=== PATIENT | male | born 1955 | race Caucasian/White ===

== ENCOUNTER 2016-07-18 12:43 | Inpatient (IN) ==
--- NOTE | 2016-07-18 12:59 | Emergency Department Note ---
Disposition Clinical Impression: Left upper limb pain, Elevated troponin Chest pain Qualifiers: Chest pain type: unspecified Qualified Code(s): R07.9 - Chest pain, unspecified Disposition: Admitted As Inpatient Condition: Fair Referrals: Benedicto Workman DO [Primary Care Provider] - Forms: ED Satisfaction Letter Time of Disposition: 14:05 Chest Pain HPI - General Chief Complaint: ED Chest Pain Stated Complaint: CP/elevated trop/EKG changes Time Seen by Provider: 07/18/16 12:54 Source: patient, family, EMS Mode of arrival: EMS Limitations: no limitations Vital Signs Reviewed: Yes Nursing Notes Reviewed: Yes - History of Present Illness HPI Narrative: Patient is a 61-year-old male with past medical history of aortic valve replacement with mechanical valve, currently on Coumadin, previous OH. He presents today due to left-sided chest pain that radiates into his left upper extremity. It began one to 2 hours ago. Did not radiate anywhere else besides his left upper extremity. No shortness of breath, no nausea or vomiting. Denies any other fevers, abdominal pain. He did not get aspirin 325 because he is currently on Coumadin. He received 2 nitroglycerin tablets and his pain resolved. He currently rates his pain as 0 out of 10. Asymptomatic at this time. Troponin at [facility] was 0.05. - Related Data Allergies Allergy/AdvReac Type Severity Reaction Status Date / Time acetaminophen [From Percocet] Allergy Itching Verified 07/18/16 12:57 morphine Allergy Itching Verified 07/18/16 12:57 Oxycodone [From Percocet] Allergy Itching Verified 07/18/16 12:57 All systems ED: reviewed and negative except as stated. Constitutional: Denies: fever Cardiovascular: Reports: chest pain. Denies: palpitations Respiratory: Denies: cough, dyspnea, wheezes Gastrointestinal: Denies: abdominal pain, nausea, vomiting, diarrhea Musculoskeletal: Reports: arthralgia, myalgia. Denies: back pain Integumentary: Denies: rash Neurological: Denies: headache, weakness, numbness, paresthesias Physical Exam - General Limitations: no limitations General appearance: alert, in no apparent distress - Head Head exam: atraumatic, normocephalic, normal inspection - Eye Eye exam: Present: normal appearance, PERRL, EOMI - ENT ENT exam: normal exam, mucous membranes moist - Neck Neck exam: Present: normal inspection, full ROM, trachea midline - Chest Chest inspection: Present: normal inspection, symmetric chest wall rise - Respiratory Respiratory exam: Present: normal lung sounds bilaterally. Absent: respiratory distress, wheezes - Cardiovascular Cardiovascular exam: Present: regular rate, normal rhythm, normal heart sounds - Abdominal Exam Abdominal exam: Present: soft, Non-Tender. Absent: tenderness, distention, guarding, rebound, rigidity - Extremities Exam Extremities exam: Present: normal inspection, full ROM. Absent: tenderness, pedal edema - Neurological Exam Neurological exam: Present: alert, oriented X3, CN II-XII intact. Absent: motor sensory deficit - Psychiatric Psychiatric exam: Present: normal affect, normal mood - Skin Skin exam: Present: warm, dry, intact, normal color Course Course Narrative: Vitals within normal limits. Currently patient is chest pain-free. Physical exam fairly benign. We will obtain chest x-ray, CBC and BMP, repeat troponin. These labs were done at the [facility] but not sent over. 13:44 EKG shows: Sinus rhythm. Mild ST elevation in lead 3, aVF as well as on previous EKG. New upsloping in lead 3. Q waves in 2, 3, aVF that are old for the patient. New T-wave inversions in aVL and lead 1. Troponin 0.20. Patient currently on Coumadin, refused aspirin. We will consult cardiology due to nonspecific ST changes and elevated troponin. Currently chest pain free, no shortness of breath. Spoke with Dr. Bonds, did not recommend anticoagulation since he is a 31 on Coumadin. He will review the EKG and then give any further recommendations. For now, recommended admitting to the hospitalist with cardiology as consult. Vital Signs Temperature 98.1 F 07/18/16 12:45 Pulse Rate 65 07/18/16 12:45 Respiratory Rate 16 07/18/16 12:45 Blood Pressure 127/84 07/18/16 12:45 O2 Sat by Pulse Oximetry 96 07/18/16 12:45 Temperature 98.1 F 07/18/16 12:45 Pulse Rate 65 07/18/16 12:45 Respiratory Rate 16 07/18/16 12:45 Blood Pressure 127/84 07/18/16 12:45 O2 Sat by Pulse Oximetry 96 07/18/16 12:45 Oxygen Delivery Oxygen Delivery Room Air Chest Pain - MDM Narrative Medical decision making narrative: Vitals within normal limits. Currently patient is chest pain-free. Physical exam fairly benign. We will obtain chest x-ray, CBC and BMP, repeat troponin. These labs were done at the [facility] but not sent over. 13:44 EKG shows: Sinus rhythm. Mild ST elevation in lead 3, aVF as well as on previous EKG. New upsloping in lead 3. Q waves in 2, 3, aVF that are old for the patient. New T-wave inversions in aVL and lead 1. Troponin 0.20. Patient currently on Coumadin, refused aspirin. We will consult cardiology due to nonspecific ST changes and elevated troponin. Currently chest pain free, no shortness of breath. Spoke with Dr. Bonds, did not recommend anticoagulation since he is a 31 on Coumadin. He will review the EKG and then give any further recommendations. For now, recommended admitting to the hospitalist with cardiology as consult. - Medical Records Medical records reviewed: Yes I reviewed the patient's medical records. - Lab Data Lab results reviewed: Yes I reviewed the patient's lab results. Result diagrams: 07/18/16 13:07 07/18/16 13:07 Lab Results 07/18/16 07/18/16 07/18/16 Range/Units 13:07 13:07 13:07 WBC 10.3 (4.3-11.1) K/mcL RBC 5.14 (4.19-5.50) M/mcL Hgb 15.3 (12.9-16.9) g/dL Hct 44.5 (37.5-50.1) % MCV 86.6 (83.0-100.0) fL MCH 29.8 (28.0-33.3) pg MCHC 34.4 (31.6-35.5) g/dL RDW 12.5 (11.5-14.5) % Plt Count 196 (140-400) K/mcL MPV 10.7 (9.4-12.4) fL Immature Gran % 0.3 (0-4) % Seg Neutrophils % 60.7 % Lymphocytes % 29.4 % Monocytes % 8.3 % Eosinophils % 1.0 % Basophils % 0.3 % Neutrophils # 6.3 (1.6-8.9) K/mcL Lymphocytes # 3.0 (0.6-4.6) K/mcL Monocytes # 0.9 (0.0-1.3) K/mcL Eosinophils # 0.1 (0.0-0.6) K/mcL Basophils # 0.0 (0.0-0.2) K/mcL Sodium 140 (136-145) mEq/L Potassium 3.7 (3.5-4.5) mEq/L Chloride 103 (98-109) mEq/L Carbon Dioxide 31 H (19-29) mEq/L BUN 17 (8-26) mg/dL Creatinine 0.80 (0.72-1.25) mg/dL Est GFR ( Amer) > 60 (> 60) Est GFR (Non-Af Amer) > 60 (> 60) BUN/Creatinine Ratio 21 (6-26) Glucose 95 (70-99) mg/dL Calculated Osmolality 291 (280-300) Calcium 9.3 (8.6-10.8) mg/dL Troponin I 0.20 H* (0-0.03) ng/mL - Radiology Data Radiology results reviewed: Yes I reviewed the patient's radiology results. Chest X-Ray 07/18/16 12:53 IMPRESSION: No acute cardiopulmonary disease. D/ / 07/18/2016 13:43:45 Chacho Billings MD / [facility] Interpreting Provider: Chacho Billings MD - EKG Data EKG attestation: Yes I reviewed and interpreted this EKG. EKG results narrative: 07/18/2016 at 12:48. Sinus rhythm. Mild ST elevation in lead 3, aVF as well as on previous EKG. New upsloping in lead 3. Q waves in 2, 3, aVF that are old for the patient. New T-wave inversions in aVL and lead 1. Old EKG was 09/20/2012 Heart Score - Score History: Highly Suspicious EKG: Non Specific repolarisation Disturbance Age: 45-65 Risk Factors: Equal/Greater than 3 risk factor or history of atherosclerotic disease Troponin: 1-3x normal limit HEART Score Total: 7 S.B.A.R. - S.B.A.R. Situation: Demographics, MOA Background: Presenting Complaint, Relevant PMH, Meds, & Allergies Assessment: Vital Signs, Course and respsone to treatment, Exam Concerns, Patient/Family Expectation, Pertinant Lab Results, Outstanding Labs Recommendation: Barrier(s) to disposition, Recommendation based on pending studies, treatments, or consults Chivo Report Given to: Dr. Shiloh Waldron Repor Time: 14:05
--- NOTE | 2016-07-18 13:11 | Emergency Department Note ---
Disposition Clinical Impression: Chest pain, Left upper limb pain, Elevated troponin Disposition: Admitted As Inpatient Condition: Fair General Adult HPI - General Chief complaint: ED Chest Pain Stated complaint: CP/elevated trop/EKG changes Time Seen by Provider: 07/18/16 13:02 Source: patient, family, EMS Mode of arrival: EMS Limitations: no limitations - History of Present Illness Pain Scale: 0 - Related Data Home Medications Medication Instructions Recorded Confirmed Celecoxib [Celebrex] 200 mg PO DAILY 07/18/16 07/18/16 Esomeprazole Magnesium [Nexium] 20 mg PO DAILY 07/18/16 07/18/16 Fluticasone Propionate Nasal 1 spray NS BID 07/18/16 07/18/16 [Flonase] Furosemide [Lasix] 40 mg PO DAILY PRN 07/18/16 07/18/16 Loratadine [Allergy Relief] 10 mg PO DAILY 07/18/16 07/18/16 Nitroglycerin [Nitrostat] 0.4 mg SL AD PRN 07/18/16 07/18/16 Potassium Chloride [Klor-Con 10] 10 meq PO DAILY PRN 07/18/16 07/18/16 Warfarin [Coumadin] 5 mg PO 6XW 07/18/16 07/18/16 Warfarin [Coumadin] 5 mg PO FR 07/18/16 07/18/16 Allergies Allergy/AdvReac Type Severity Reaction Status Date / Time acetaminophen [From Percocet] Allergy Itching Verified 07/18/16 12:57 morphine Allergy Itching Verified 07/18/16 12:57 Oxycodone [From Percocet] Allergy Itching Verified 07/18/16 12:57 Constitutional: Denies: fever Cardiovascular: Reports: chest pain. Denies: palpitations Respiratory: Denies: cough, dyspnea, wheezes Gastrointestinal: Denies: abdominal pain, nausea, vomiting, diarrhea Musculoskeletal: Reports: arthralgia, myalgia. Denies: back pain Integumentary: Denies: rash Neurological: Denies: headache, weakness, numbness, paresthesias Past Medical History - Past Medical History Medical history: Reports: arthritis, other Psychiatric history: Reports: anxiety - Social History Smoking Status: Never smoker Smokeless Tobacco Status: No Alcohol use: Reports: none Drug use: Reports: none Physical Exam - General Limitations: no limitations General appearance: alert, in no apparent distress Course Vital Signs Temperature 98.1 F 07/18/16 12:45 Pulse Rate 65 07/18/16 12:45 Respiratory Rate 16 07/18/16 12:45 Blood Pressure 127/84 07/18/16 12:45 O2 Sat by Pulse Oximetry 96 07/18/16 12:45 Temperature 98.2 F 07/18/16 16:09 Pulse Rate 62 07/18/16 16:09 Respiratory Rate 18 07/18/16 16:09 Blood Pressure 140/80 07/18/16 16:09 O2 Sat by Pulse Oximetry 97 07/18/16 16:09 Oxygen Delivery Oxygen Delivery Room Air Medical Decision Making - Lab Data Result diagrams: 07/18/16 13:07 07/18/16 13:07 Lab Results 07/18/16 07/18/16 07/18/16 Range/Units 13:07 13:07 13:07 WBC 10.3 (4.3-11.1) K/mcL RBC 5.14 (4.19-5.50) M/mcL Hgb 15.3 (12.9-16.9) g/dL Hct 44.5 (37.5-50.1) % MCV 86.6 (83.0-100.0) fL MCH 29.8 (28.0-33.3) pg MCHC 34.4 (31.6-35.5) g/dL RDW 12.5 (11.5-14.5) % Plt Count 196 (140-400) K/mcL MPV 10.7 (9.4-12.4) fL Immature Gran % 0.3 (0-4) % Seg Neutrophils % 60.7 % Lymphocytes % 29.4 % Monocytes % 8.3 % Eosinophils % 1.0 % Basophils % 0.3 % Neutrophils # 6.3 (1.6-8.9) K/mcL Lymphocytes # 3.0 (0.6-4.6) K/mcL Monocytes # 0.9 (0.0-1.3) K/mcL Eosinophils # 0.1 (0.0-0.6) K/mcL Basophils # 0.0 (0.0-0.2) K/mcL PT (9.4-12.1) Seconds INR APTT (26.0-36.0) Seconds Sodium 140 (136-145) mEq/L Potassium 3.7 (3.5-4.5) mEq/L Chloride 103 (98-109) mEq/L Carbon Dioxide 31 H (19-29) mEq/L BUN 17 (8-26) mg/dL Creatinine 0.80 (0.72-1.25) mg/dL Est GFR ( Amer) > 60 (> 60) Est GFR (Non-Af Amer) > 60 (> 60) BUN/Creatinine Ratio 21 (6-26) Glucose 95 (70-99) mg/dL Calculated Osmolality 291 (280-300) Calcium 9.3 (8.6-10.8) mg/dL Creatine Kinase 191 (30-200) Units/L Troponin I 0.20 H* (0-0.03) ng/mL 07/18/16 Range/Units 14:09 WBC (4.3-11.1) K/mcL RBC (4.19-5.50) M/mcL Hgb (12.9-16.9) g/dL Hct (37.5-50.1) % MCV (83.0-100.0) fL MCH (28.0-33.3) pg MCHC (31.6-35.5) g/dL RDW (11.5-14.5) % Plt Count (140-400) K/mcL MPV (9.4-12.4) fL Immature Gran % (0-4) % Seg Neutrophils % % Lymphocytes % % Monocytes % % Eosinophils % % Basophils % % Neutrophils # (1.6-8.9) K/mcL Lymphocytes # (0.6-4.6) K/mcL Monocytes # (0.0-1.3) K/mcL Eosinophils # (0.0-0.6) K/mcL Basophils # (0.0-0.2) K/mcL PT 44.2 H* (9.4-12.1) Seconds INR 3.9 APTT 41.6 H (26.0-36.0) Seconds Sodium (136-145) mEq/L Potassium (3.5-4.5) mEq/L Chloride (98-109) mEq/L Carbon Dioxide (19-29) mEq/L BUN (8-26) mg/dL Creatinine (0.72-1.25) mg/dL Est GFR ( Amer) (> 60) Est GFR (Non-Af Amer) (> 60) BUN/Creatinine Ratio (6-26) Glucose (70-99) mg/dL Calculated Osmolality (280-300) Calcium (8.6-10.8) mg/dL Creatine Kinase (30-200) Units/L Troponin I (0-0.03) ng/mL Attestation Statement - Attestation Attestation: I examined this patient and my medical decision-making was reviewed with the [facility] DIRECTOR/PA/Advanced Practice Nurse/Resident Physician. I agree with the documented findings, disposition and treatment plan as described except to the extent set forth below. Face to face time provided [facility] and [facility]. Patient has a known history of coronary artery disease. EKG reviewed by me. Patient resting comfortably without reports of chest pain. He appears no acute distress
[2016-07-18 13:12] LABS: Basophils % 0.3 %; Eosinophils # 0.1 K/mcL (0.0-0.6); Hematocrit 44.5 % (37.5-50.1); Hemoglobin 15.3 g/dL (12.9-16.9); Immature Granulocytes % 0.3 % (0-4); Lymphocytes % 29.4 %; Mean Corpuscular HGB Conc 34.4 g/dL (31.6-35.5); Mean Corpuscular Hemoglobin 29.8 pg (28.0-33.3); Mean Corpuscular Volume 86.6 fL (83.0-100.0); Mean Platelet Volume 10.7 fL (9.4-12.4); Monocytes # 0.9 K/mcL (0.0-1.3); Monocytes % 8.3 %; Neutrophils # 6.3 K/mcL (1.6-8.9); Platelet Count 196 K/mcL (140-400); Red Blood Count 5.14 M/mcL (4.19-5.50); Red Cell Distribution Width 12.5 % (11.5-14.5); Segmented Neutrophils % 60.7 %
[2016-07-18 13:25] LABS: BUN/Creatinine Ratio 21 (6-26); Blood Urea Nitrogen 17 mg/dL (8-26); Calcium 9.3 mg/dL (8.6-10.8); Carbon Dioxide 31 mEq/L (19-29); Chloride 103 mEq/L (98-109); Glucose 95 mg/dL (70-99); Osmolality,Calculated 291 (280-300); Potassium 3.7 mEq/L (3.5-4.5); Sodium 140 mEq/L (136-145); eGFR For African Americans > 60 (> 60); eGFR For Non-African Americans > 60 (> 60)
--- NOTE | 2016-07-18 14:25 | Cardiology Consult Note ---
Date of Encounter: 07/18/16 Time of Encounter: 14:23 Assessment and Plan (1) NSTEMI (non-ST elevated myocardial infarction) Current Visit: Yes Status: Acute Troponin 0.20 here. Records not sent of what troponin was at [facility]. Trend for total of 3. Pt with left sided chest and arm pain, relieved with nitro. Currently pain free. Will not heparinize unless INR is <2 since pt is anticoagulated on Coumadin. EKG with evidence of inferior CA, Q waves noted. Start ASA, Statin, BB. INR pending. Recommend [facility]. R/B/A discussed and pt agrees to proceed. Plan for tomorrow if INR allows (<=2). Check echo to evaluate structure and function. Last echo at [facility] 02/2015 EF was preserved and valve was functioning normally. (2) H/O mechanical aortic valve replacement Current Visit: Yes Status: Acute Type A aortic dissection in 1984, repair of dissection as well as mechanical Medtronic-Valadez valve replacement. Echo 02/2015 normal functioning valve. Anticoagulated on Coumadin, INR pending. (3) History of aortic dissection Current Visit: Yes Status: Resolved As above, s/p repair in 1984. Discussion w patient/family: The assessment and plan as outlined above was discussed with the patient and/or family members who expressed understanding and agreement. All questions were answered. Thank you for involving us in the care of your patient. Please call with any questions. I will discuss all the above with Dr. Bonds and make changes as necessary. History of Present Illness Consult date: 07/18/16 Requesting physician: Joseph Sierra Consult reason: NSTEMI Chief complaint: left chest/arm pain History of present illness: Mr. Capellan is a 61 year old male with PMH of Type A aortic dissection in 1984. His surgery at that time included repair of and descending aortic dissection as well as mechanical Medtronic-Valadez aortic valve replacement. He has followed every 6 months at [facility] [address] Fonseca. Last echo in 2014 at showed normal EF and normal functioning valve. He is on Coumadin. He reports that over recent days he has been experiencing left chest and left arm pain, aching in nature. He denies any associated symptoms. He presented to [facility], was found to have elevated troponin and transferred to [facility]. Troponin is 0.20. Pt reports nitro helped relieve the pain. Moving made it worse. He is currently pain free. Reports living a healthy lifestyle, has never smoked. Past Med Surg Social Fam HX - Past Medical History Medical history: arthritis, valvular heart disease, other (type A aortic dissection) Psychiatric history: anxiety - Social History Smoking Status: Never smoker Smokeless Tobacco Status: No Alcohol use: none Drug use: none Medications and Allergies Celecoxib [Celebrex] 200 mg PO DAILY 07/18/16 [History] Esomeprazole Magnesium [Nexium] 20 mg PO DAILY 07/18/16 [History] Fluticasone Propionate Nasal [Flonase] 1 spray NS BID 07/18/16 [History] Furosemide [Lasix] 40 mg PO DAILY PRN 07/18/16 [History] Loratadine [Allergy Relief] 10 mg PO DAILY 07/18/16 [History] Nitroglycerin [Nitrostat] 0.4 mg SL AD PRN 07/18/16 [History] Potassium Chloride [Klor-Con 10] 10 meq PO DAILY PRN 07/18/16 [History] Warfarin [Coumadin] 5 mg PO 6XW 07/18/16 [History] Warfarin [Coumadin] 5 mg PO FR 07/18/16 [History] Allergies acetaminophen [From Percocet] Allergy (Verified 07/18/16 12:57) Itching morphine Allergy (Verified 07/18/16 12:57) Itching Oxycodone [From Percocet] Allergy (Verified 07/18/16 12:57) Itching All Systems Review: A 10-system review of systems was performed and is negative for pertinent findings except as documented above in the HPI. - Cardiovascular Cardiovascular: as per HPI, chest pain at rest, chest pain with exertion, radiating jaw, neck or arm pain Physical Examination Vital Signs, Last 4 Hours Temp Pulse Resp BP Pulse Ox 07/18/16 14:00 61 16 121/83 98 07/18/16 12:45 98.1 F 65 16 127/84 96 Vital Signs Temp Pulse Resp BP Pulse Ox 07/18/16 14:00 61 16 121/83 98 07/18/16 12:45 98.1 F 65 16 127/84 96 Intake and Output 07/17/16 07/18/16 07/18/16 23:59 07:59 15:59 Other: Weight 80.286 kg Patient Weight 07/18/16 23:59 Weight 80.286 kg General: Conversant, No Apparent Distress HEENT: Atraumatic, Normocephaly, Mucus Membranes Moist Neck: No JVD, Normal carotid pulses Cardiac: Reg Rate and Rhythm, Normal S1 and S2 Lungs: Normal Breath Sounds, No Wheeze, Rales, Rhonchi Neuro: Alert and responsive, No focal deficits noted Abdomen: Soft, Non-Tender Skin: No rashes noted on visualized skin Musculoskeletal: No Chest Wall Tenderness Extremities: No Clubbing, No Cyanosis, No Edema, Normal Pulses Results 07/18/16 13:07 07/18/16 13:07 Lab Results 07/18/16 07/18/16 07/18/16 13:07 13:07 13:07 WBC 10.3 RBC 5.14 Hgb 15.3 Hct 44.5 MCV 86.6 MCH 29.8 MCHC 34.4 RDW 12.5 Plt Count 196 MPV 10.7 Immature Gran % 0.3 Seg Neutrophils % 60.7 Lymphocytes % 29.4 Monocytes % 8.3 Eosinophils % 1.0 Basophils % 0.3 Neutrophils # 6.3 Lymphocytes # 3.0 Monocytes # 0.9 Eosinophils # 0.1 Basophils # 0.0 Sodium 140 Potassium 3.7 Chloride 103 Carbon Dioxide 31 H BUN 17 Creatinine 0.80 Est GFR ( Amer) > 60 Est GFR (Non-Af Amer) > 60 BUN/Creatinine Ratio 21 Glucose 95 Calculated Osmolality 291 Calcium 9.3 Troponin I 0.20 H* - Imaging and Cardiology Chest Xray: report reviewed Echo: report reviewed - EKG Interpretation EKG results cardiology: personally reviewed (Q waves noted, no evidence of STEMI , appears to be inferior CA.) Consult Discharge Plan - Plan Referrals: Benedicto Workman DO [Primary Care Provider] -
[2016-07-18 14:29] LABS: Creatine Kinase 191 Units/L (30-200)
[2016-07-18 14:37] LABS: Activated Partial Thrombo Time 41.6 Seconds (26.0-36.0)
[2016-07-18 14:40] LABS: INR 3.9; Prothrombin Time 44.2 Seconds (9.4-12.1)
[2016-07-18] MEDS ORDERED: Naloxone 0.4 MG/ML INJ IVP PRN (15:00)
--- NOTE | 2016-07-18 15:58 | Internal Med History&Physical ---
Date of Encounter: 07/18/16 Time of Encounter: 15:00 Assessment and Plan (1) NSTEMI (non-ST elevated myocardial infarction) Current visit: Yes Status: Acute Patient with elevated troponin and left-sided chest/arm pain. Trend troponins. Monitor vital signs closely. Consult cardiology and follow recommendations. Patient is already treated with Coumadin. Start aspirin and statin. High risk for complications. Check A1c and lipid profile. (2) H/O mechanical aortic valve replacement Current visit: Yes Status: Acute On Coumadin. INR is therapeutic (3) History of aortic dissection Current visit: Yes Status: Resolved Status post surgical repair. CTA done and shows no acute dissection. (4) Left upper limb pain Current visit: Yes Status: Acute Likely related to non-ST elevation SC. Internal Medicine - H&P: HPI Chief complaint: Left arm pain Admitted From: Home Plans for Post Hospital Care: Home History of present illness: Mr. Capellan is a 61 year old male patient with a history of aortic valve replacement/and aortic dissection with surgical repair presented to the ER with complaints of left-sided chest/left arm pain. He says his pain has been going on for about 2 days intermittently and lasting for 4-5 minutes each time. However this morning he began to have pain that lasted for 15 minutes and so he came to the ER. No relation to activity. No associated shortness of breath. No cough, fever or chills or night sweats. He has been chest pain-free since coming here. He has initially gone to the [place] and they had sent him over. Past Med Surg Social Fam HX - Past Medical History Medical history: arthritis, valvular heart disease, other (type A aortic dissection) Psychiatric history: anxiety - Past Surgical History Surgical History: other (Open heart surgery for aortic valve replacement and aortic dissection repair) - Social History Smoking Status: Never smoker Smokeless Tobacco Status: No Alcohol use: none Drug use: none - Additional Family History Additional family history: Reviewed with patient and found to be noncontributory at this time Internal Medicine - H&P: Meds Celecoxib [Celebrex] 200 mg PO DAILY 07/18/16 [History] Esomeprazole Magnesium [Nexium] 20 mg PO DAILY 07/18/16 [History] Fluticasone Propionate Nasal [Flonase] 1 spray NS BID 07/18/16 [History] Furosemide [Lasix] 40 mg PO DAILY PRN 07/18/16 [History] Loratadine [Allergy Relief] 10 mg PO DAILY 07/18/16 [History] Nitroglycerin [Nitrostat] 0.4 mg SL AD PRN 07/18/16 [History] Potassium Chloride [Klor-Con 10] 10 meq PO DAILY PRN 07/18/16 [History] Warfarin [Coumadin] 5 mg PO 6XW 07/18/16 [History] Warfarin [Coumadin] 5 mg PO FR 07/18/16 [History] Allergies acetaminophen [From Percocet] Allergy (Verified 07/18/16 12:57) Itching morphine Allergy (Verified 07/18/16 12:57) Itching Oxycodone [From Percocet] Allergy (Verified 07/18/16 12:57) Itching All Systems PM: A 10-system review of systems was performed and is negative for pertinent findings except as documented above in the HPI. - Constitutional Constitutional: no chills, no fever(s), no night sweats - EENT Eyes: no change in vision, no discharge, no pain, no photophobia Ears: no ear discharge, no ear pain, no tinnitus Nose, mouth and throat: no dysphagia, no nasal discharge, no neck pain, no sore throat - Cardiovascular Cardiovascular ROS IM: chest pain, no diaphoresis, no dyspnea, no lightheadedness, no palpitations, no syncope - Respiratory Respiratory: no cough, no dyspnea, no wheezing, no excessive phlegm production - Gastrointestinal Gastrointestinal: no abdominal pain, no diarrhea, no hematemesis, no hematochezia, no melena, no nausea, no vomiting - Musculoskeletal Musculoskeletal ROS IM: no numbness, no tingling - Integumentary Integumentary IM: no rash, no unusual bruising - Neurological Neurological ROS: no confusion, no convulsions, no focal weakness, no numbness, no tingling, no tremor(s) - Hematologic/Lymphatic Hematologic/Lymphatic: no easy bruising - Constitutional Vitals: Temp Pulse Resp BP Pulse Ox 98.1 F 61 16 126/83 98 07/18/16 12:45 07/18/16 14:00 07/18/16 15:02 07/18/16 15:02 07/18/16 14:00 General appearance: Present: cooperative, A&O X 3, answers questions appropriately - Respiratory Respiratory exam: Present: CTAB. Absent: accessory muscle use, rales, rhonchi, wheezes - Cardiovascular Cardiovascular exam: Present: RRR, +S1, +S2. Absent: diastolic murmur, gallop, rubs, systolic murmur - GI/Abdominal GI/Abdominal exam: Present: normal bowel sounds, soft, no peritoneal signs. Absent: distended, tenderness - Extremities Exam Extremities exam: Present: warm, radial pulses palpable and symetrical. Absent : calf tenderness, cyanotic, pedal edema - Neurological Exam Neurological exam: Present: CN II-XII intact, oriented X3, no focal deficits. Absent: facial droop, speech deficit Internal Med - H&P Results - Labs CBC & Chem 7: 07/18/16 13:07 07/18/16 13:07 - EKG Data -: EKG Interpreted by Myself - EKG Data EKG comments: 07/18/16 16:13 Sinus rhythm no acute ST segment changes. Inferior Q waves seen. - Impressions Impressions Chest X-Ray 07/18/16 12:53 IMPRESSION: No acute cardiopulmonary disease. D/ / 07/18/2016 13:43:45 Chacho Billings MD / [facility] Interpreting Provider: Chacho Billings MD Chest CTA 07/18/16 14:55 IMPRESSION: 1. Cardiomegaly with atherosclerosis. Prior aortic valve replacement with 4.1 cm dilatation of the aortic arch. No thoracic aortic dissection. 2. No acute pulmonary emboli. 3. No acute pneumonia or congestive heart failure. D/ / Lalito Rubin MD / Lalito Rubin MD Interpreting Provider: Lalito Rubin MD - Attending Attestation This document has been at least partially created by [employer] recognition technology by Dr. Matamoros. Errors in grammar, wording or other phrases may exist. If errors are found after the documentation is signed, they will be addressed individually in the addendum section of this document when appropriate.
[2016-07-18] MEDS: Aspirin Enteric Coated 81 MG Tablet PO SCH (18:02)
[2016-07-19 06:30] LABS: Basophils % 0.4 %; Eosinophils # 0.2 K/mcL (0.0-0.6); Eosinophils % 1.8 %; Hematocrit 47.6 % (37.5-50.1); Hemoglobin 15.7 g/dL (12.9-16.9); Immature Granulocytes % 0.4 % (0-4); Lymphocytes # 3.3 K/mcL (0.6-4.6); Lymphocytes % 36.2 %; Mean Corpuscular Hemoglobin 28.8 pg (28.0-33.3); Mean Corpuscular Volume 87.2 fL (83.0-100.0); Mean Platelet Volume 11.1 fL (9.4-12.4); Monocytes # 0.8 K/mcL (0.0-1.3); Neutrophils # 4.8 K/mcL (1.6-8.9); Platelet Count 211 K/mcL (140-400); Red Blood Count 5.46 M/mcL (4.19-5.50); Red Cell Distribution Width 12.8 % (11.5-14.5); Segmented Neutrophils % 52.2 %
[2016-07-19 06:46] LABS: BUN/Creatinine Ratio 19 (6-26); Blood Urea Nitrogen 15 mg/dL (8-26); Calcium 9.4 mg/dL (8.6-10.8); Carbon Dioxide 27 mEq/L (19-29); Chloride 105 mEq/L (98-109); Glucose 77 mg/dL (70-99); Osmolality,Calculated 290 (280-300); Potassium 4.4 mEq/L (3.5-4.5); Sodium 140 mEq/L (136-145); eGFR For African Americans > 60 (> 60); eGFR For Non-African Americans > 60 (> 60)
[2016-07-19] MEDS: Aspirin Enteric Coated 81 MG Tablet PO SCH (09:13)
[2016-07-19 09:32] LABS: INR 3.9
[2016-07-19 09:35] LABS: Prothrombin Time 43.5 Seconds (9.4-12.1)
--- NOTE | 2016-07-19 09:40 | ECHO - Doppler Report ---
Echocardiogram Name: Timothy Capellan Date of Study: 07/18/2016 Date: 1955 Ht: 66.0 in Medical Record#: [id number] Age: 61 Wt: 177.0 lb Gender: Male BSA: 1.9 Order #: [id number] Location: [facility] Room #: 2NE26 Reading Physician: Saturnino Cherry DO, SNEHAL, YUMIKO CABA Vat Cleaner: Diana Villa Ordering Physician: Claudy Chou CNP Primary Physician: [facility] Indications: NSTEMI, Mechanical AoV, Hx Ao dissection Impressions: LVEF 65%. Normal LV chamber size and function. Mild concentric left ventricular hypertrophy. Mild left ventricular diastolic dysfunction. Normal right ventricular structure and function. Mechanical aortic valve noted and appears to be well seated in the LVOT. Trace aortic regurgitation, unclear if valvular or perivalvular. Possible prosthetic aortic stenosis suggested by Doppler. MG 29 mmHg (2014 report, MG 25 mmHg). Peak velocity 3.77 m/s (3.39 m/s). Recommend correlation with size and type of valve. No evidence of pulmonary hypertension. Portions of the aortic root visualized appear normal in size. Left Ventricular Wall Motion: Rest Echo Findings All wall segments showed normal motion. Findings: Study Quality * Technically adequate exam. ECG Findings * Normal sinus rhythm. Left Ventricle * LVEF 65%. * Normal LV chamber size and function. * Mild concentric left ventricular hypertrophy. * Atypical septal motion consistent with a postoperative septum. * Mild left ventricular diastolic dysfunction. Right Ventricle * Normal right ventricular structure and function. Left Atrium * Mildly dilated left atrium. Right Atrium * Mildly dilated right atrium. Interatrial Septum * No evidence of PFO by color Doppler. Aortic Valve * Mechanical aortic valve noted and appears to be well seated in the LVOT. Type and size of valve is unknown. * Trace aortic regurgitation, unclear if valvular or perivalvular. * Possible prosthetic aortic stenosis suggested by Doppler. Mean gradient 29 mmHg. Peak velocity 3.77 m/s. Mitral Valve * Normal mitral valve structure and function. * No mitral regurgitation. * No mitral stenosis. Tricuspid Valve * Normal tricuspid valve structure and function. * Trace tricuspid regurgitation. * No evidence of pulmonary hypertension. Pulmonic Valve * Normal pulmonic valve structure and function. * No pulmonic regurgitation. Aorta * Normally sized aortic root. Pericardium * The pericardium appears normal. IVC * Normal IVC dimensions and inspiratory collapse. Pulmonary Artery * Normal visualized portions of the main pulmonary artery. History Myocardial Infarction Valvular Disease Valve Replacement AV Prosthesis Mechanical 09/02/2013 a Previous Echo was performed. Measurements: BP: 126/ 83 2D Normal Values RVIDd: 3.40 cm <2.7 cm IVSd: 1.40 cm 0.6 - 1.0 cm LVIDd: 4.90 cm 3.7 - 5.6 cm LVPWd: 1.40 cm 0.6 - 1.1 cm LVIDs: 3.40 cm 1.5 - 3.6 cm AO: 3.10 cm < 4.0 cm LA: 4.10 cm 2.0 - 4.0cm %FS: 30.60 cm >25 % LVOT Diam: 2.20 cm LA volume: 73 Mitral Valve Peak E:.69 m/sec Peak A:.64 m/sec E/A Ratio:1.1 LVOT Peak Facundo:.65 m/sec Mean Facundo:.47 m/sec Peak Grad:2.00 mmHg Mean Grad:1.00 mmHg Aortic Valve Peak Facundo:3.77 m/sec Mean Facundo:2.53 m/sec Peak Grad:57.00 mmHg Mean Grad:29.00 mmHg Valve Area:.82 cm2 Tricuspid Valve TV Regurg Peak Grad: 24.00mmHg TV Regurg Peak Facundo: 2.43m/sec Updated by Saturnino Cherry DO, FACLeonardo, GERTRUDIS, YUMIKO on 07/19/2016 9:31:57 AM electronically signed on 07/19/2016 9:36:00 AM with status of Final Wall Motion [place]: 1=Normal, 2=Hypokinesis, 3=Akinesis, 4=Dyskinesis, 5=Aneurysmal, 6=Hyperkinetic, X=Not Visualized (Blank)=Missing
[2016-07-19] MEDS: Loratadine 10 MG TABLET PO SCH (10:24)
[2016-07-19] MEDS: Fluticasone Propionate Nasal 50 MCG/SPRAY BOTTLE NS SCH ×2 (10:25→20:55)
--- NOTE | 2016-07-19 12:25 | Cardiology Progress Note ---
Date of Encounter: 07/19/16 Time of Encounter: 12:23 Assessment and Plan (1) NSTEMI (non-ST elevated myocardial infarction) Current Visit: Yes Status: Acute Troponin 0.20, 0.45, 0.26--now downtrending. No recurrent chest pain. Will not heparinize unless INR is <2 since pt is anticoagulated on Coumadin-- currently on hold. INR 3.9. EKG with evidence of inferior OH, Q waves noted. Started ASA, Statin, BB. Reports hx of intolerance to BB. Lowest HR noted 49 during nocturnal hours. Continue to monitor. Recommend LHC once INR allows. R/B/A discussed and pt agrees to proceed. Plan for when INR allows (<=2). Echo EF preserved with normal wall motion. Will continue to follow. (2) H/O mechanical aortic valve replacement Current Visit: Yes Status: Acute Type A aortic dissection in 1984, repair of dissection as well as mechanical Medtronic-Valadez valve replacement. Echo 02/2015 normal functioning valve. Current echo shows possible prosthetic , MG 29, PV 3.77, not severe. No further testing for valve needed at this time. Anticoagulated on Coumadin, INR 3.9. Coumadin on hold. Recommend heparin gtt when INR <2. (3) History of aortic dissection Current Visit: Yes Status: Resolved As above, s/p repair in 1984. Chest CT obtained shows no acute dissection. Discussion w patient/family: The assessment and plan as outlined above was discussed with the patient and/or family members who expressed understanding and agreement. All questions were answered. Thank you for involving us in the care of your patient. Please call with any questions. I will discuss all the above with Dr. Bonds and make changes as necessary. Subjective Principal diagnosis: NSTEMI Interval history: Troponins 0.20, 0.45, 0.26. Pt denies any recurrent chest or arm/shoulder pain overnight. INR 3.9 today. Echo EF 65%, normal wall motion, mild LVH, mild diastolic dysfunction, possible prosthetic . Chest CT no dissection. Aortic arch 4.1cm dilated. Objective Vital Signs Temp Pulse Resp BP Pulse Ox 07/19/16 06:53 97.9 F 56 18 117/76 07/19/16 04:07 97.6 F 55 18 126/86 07/18/16 23:35 98.1 F 55 18 139/91 07/18/16 19:00 97.9 F 61 18 134/84 07/18/16 16:09 98.2 F 62 18 140/80 97 07/18/16 15:02 16 126/83 07/18/16 14:00 61 16 121/83 98 07/18/16 12:45 98.1 F 65 16 127/84 96 Intake and Output 07/18/16 07/19/16 07/19/16 23:59 07:59 15:59 Intake Total 120 / 120 0 / 0 0 / 0 Output Total 0 / 0 0 / 0 Balance 120 / 120 0 / 0 0 / 0 Intake: Oral 120 / 120 0 / 0 0 / 0 Output: Urine 0 / 0 0 / 0 Other: Meal Dinner Breakfast Percent of Meal Consumed 100% 0% # Voids 1 Weight 82.9 kg 81.5 kg Patient Weight 07/19/16 23:59 Weight 81.5 kg General: Conversant, No Apparent Distress HEENT: Atraumatic, Normocephaly, Mucus Membranes Moist Neck: No JVD, Normal carotid pulses Cardiac: Reg Rate and Rhythm, Normal S1 and S2 Lungs: Normal Breath Sounds, No Wheeze, Rales, Rhonchi Neuro: Alert and responsive, No focal deficits noted Abdomen: Soft, Non-Tender Skin: No rashes noted on visualized skin Musculoskeletal: No Chest Wall Tenderness Extremities: No Clubbing, No Cyanosis, No Edema, Normal Pulses Results 07/19/16 05:37 07/19/16 05:37 Lab Results 07/18/16 07/19/16 07/19/16 20:13 05:37 05:37 WBC 9.2 Hgb 15.7 Hct 47.6 Plt Count 211 INR Sodium 140 Potassium 4.4 Chloride 105 Carbon Dioxide 27 BUN 15 Creatinine 0.79 Glucose 77 Calcium 9.4 Troponin I 0.45 H* 07/19/16 07/19/16 05:37 09:16 WBC Hgb Hct Plt Count INR 3.9 Sodium Potassium Chloride Carbon Dioxide BUN Creatinine Glucose Calcium Troponin I 0.26 H* Short CBC 07/19/16 07/18/16 Range/Units 05:37 13:07 WBC 9.2 10.3 (4.3-11.1) K/mcL Hgb 15.7 15.3 (12.9-16.9) g/dL Hct 47.6 44.5 (37.5-50.1) % Plt Count 211 196 (140-400) K/mcL Neutrophils # 4.8 6.3 (1.6-8.9) K/mcL BMP 07/19/16 07/18/16 Range/Units 05:37 13:07 Sodium 140 140 (136-145) mEq/L Potassium 4.4 3.7 (3.5-4.5) mEq/L Chloride 105 103 (98-109) mEq/L Carbon Dioxide 27 31 H (19-29) mEq/L BUN 15 17 (8-26) mg/dL Creatinine 0.79 0.80 (0.72-1.25) mg/dL Glucose 77 95 (70-99) mg/dL Calcium 9.4 9.3 (8.6-10.8) mg/dL Cardiac Enzymes 07/19/16 07/18/16 07/18/16 Range/Units 05:37 20:13 13:07 Troponin I 0.26 H* 0.45 H* 0.20 H* (0-0.03) ng/mL Impressions Chest X-Ray 07/18/16 12:53 IMPRESSION: No acute cardiopulmonary disease. D/ / 07/18/2016 13:43:45 Chacho Billings MD / [facility] Interpreting Provider: Chacho Billings MD Chest CTA 07/18/16 14:55 IMPRESSION: 1. Cardiomegaly with atherosclerosis. Prior aortic valve replacement with 4.1 cm dilatation of the aortic arch. No thoracic aortic dissection. 2. No acute pulmonary emboli. 3. No acute pneumonia or congestive heart failure. D/ / 07/18/2016 16:32:10 Lalito Rubin MD / [facility] Interpreting Provider: Lalito Rubin MD Active Medications Aspirin (Aspirin Ec) 81 mg PO DAILY BRIAN Stop: 01/17/17 14:46 Last Admin: 07/19/16 09:13 Dose: 81 mg Atorvastatin Calcium (Lipitor) 40 mg PO HS BRIAN Stop: 01/17/17 21:01 Last Admin: 07/18/16 21:54 Dose: 40 mg Fluticasone Propionate (Flonase) 50 mcg NS BID BIRAN PRN Reason: Protocol Stop: 01/18/17 09:31 Last Admin: 07/19/16 10:25 Dose: 50 mcg Loratadine (Claritin) 10 mg PO DAILY BRIAN PRN Reason: Protocol Stop: 01/18/17 09:31 Last Admin: 07/19/16 10:24 Dose: 10 mg Metoprolol Tartrate (Lopressor) 25 mg PO BID BRIAN Stop: 01/17/17 21:01 Last Admin: 07/19/16 09:13 Dose: 25 mg Naloxone HCl (Narcan) 0.4 mg IVP Q2MIN PRN PRN Reason: Opioid Reversal Stop: 01/17/17 15:01 Warfarin Sodium (Coumadin Perpt) 1 each PO DAILY@1800 PRN PRN Reason: SEE COMMENTS Stop: 01/18/17 18:01 - Imaging and Cardiology Chest Xray: report reviewed Echo: report reviewed - EKG Interpretation EKG results cardiology: other (24hr tele AVG HR 57, no significant pauses or arrhythmias) Consult Discharge Plan - Plan Referrals: Benedicto Workman DO [Primary Care Provider] - 07/29/16 9:30 am
--- NOTE | 2016-07-19 17:29 | Electrocardiograph Report ---
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
--- NOTE | 2016-07-19 17:42 | Electrocardiograph Report ---
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
[2016-07-19] MEDS ORDERED: Warfarin perPT PO PRN (18:00)
--- NOTE | 2016-07-19 18:44 | Internal Med Progress Note ---
Date of Encounter: 07/19/16 Time of Encounter: 18:41 - Assessment and plan (1) NSTEMI (non-ST elevated myocardial infarction) Current Visit: Yes Status: Acute Assessment and plan: Patient is admitted with chest pain. Troponin is elevated. Troponin has downward trend. Cardiology on the board. Plan for cardiac catheterization noted. (2) H/O mechanical aortic valve replacement Current Visit: Yes Status: Acute Assessment and plan: History of a mechanical aortic valve. It was done 32 years back. On Coumadin Presently his INR is subtherapeutic. We will wait and observe closely. (3) History of aortic dissection Current Visit: Yes Status: Resolved Assessment and plan: Previous history of aortic dissection. No acute issues. - Subjective Interval history: Patient seen and examined. Chart reviewed. Patient is comfortably lying in the bed. Family is at bedside. Patient denies chest pain, short of breath, dizziness or diarrhea. - Constitutional Vitals: Temp Pulse Resp BP Pulse Ox 97.6 F 52 18 121/72 97 07/19/16 15:06 07/19/16 15:06 07/19/16 15:06 07/19/16 15:06 07/19/16 15:06 General appearance: Present: cooperative, A&O X 3, answers questions appropriately - Head Head exam: Present: atraumatic, normocephalic - Eye Eye exam: Present: PERRL, conjuntiva pink, sclera anicteric Pupils: Present: PERRL - Neck Neck exam general surgery: Present: supple, trachea midline. Absent: lymphadenopathy - Respiratory Respiratory exam: Present: CTAB. Absent: accessory muscle use, rales, rhonchi, wheezes - Cardiovascular Cardiovascular exam: Present: RRR, +S1, +S2. Absent: diastolic murmur, gallop, rubs, systolic murmur - GI/Abdominal GI/Abdominal exam: Present: normal bowel sounds, soft, no peritoneal signs. Absent: distended, tenderness - Extremities Exam Extremities exam: Present: warm, radial pulses palpable and symetrical. Absent : calf tenderness, cyanotic, pedal edema - Neurological Exam Neurological exam: Present: CN II-XII intact, oriented X3, no focal deficits. Absent: pronater drift, facial droop, speech deficit - Skin Skin exam: Present: dry, intact Internal Medicine: Result - Labs CBC & Chem 7: 07/19/16 05:37 07/19/16 05:37 Labs: Short CBC 07/19/16 Range/Units 05:37 WBC 9.2 (4.3-11.1) K/mcL Hgb 15.7 (12.9-16.9) g/dL Hct 47.6 (37.5-50.1) % Plt Count 211 (140-400) K/mcL Neutrophils # 4.8 (1.6-8.9) K/mcL BMP 07/19/16 05:37 Sodium 140 Potassium 4.4 Chloride 105 Carbon Dioxide 27 BUN 15 Creatinine 0.79 Glucose 77 Calcium 9.4 Cardiac Enzymes 07/18/16 07/19/16 Range/Units 20:13 05:37 Troponin I 0.45 H* 0.26 H* (0-0.03) ng/mL - ABG Interpretation ABG results: PT/INR, D-dimer PT 43.5 Seconds (9.4-12.1) H* 07/19/16 09:16 Consult Discharge Plan - Plan Referrals: Benedicto Workman DO [Primary Care Provider] - 07/29/16 9:30 am
[2016-07-20 06:10] LABS: Basophils # 0.1 K/mcL (0.0-0.2); Basophils % 0.7 %; Eosinophils # 0.3 K/mcL (0.0-0.6); Eosinophils % 3.4 %; Hematocrit 46.2 % (37.5-50.1); Hemoglobin 15.4 g/dL (12.9-16.9); Immature Granulocytes % 0.6 % (0-4); Lymphocytes # 3.3 K/mcL (0.6-4.6); Lymphocytes % 35.2 %; Mean Corpuscular HGB Conc 33.3 g/dL (31.6-35.5); Mean Corpuscular Hemoglobin 29.3 pg (28.0-33.3); Mean Corpuscular Volume 87.8 fL (83.0-100.0); Mean Platelet Volume 11.4 fL (9.4-12.4); Monocytes # 0.9 K/mcL (0.0-1.3); Monocytes % 9.8 %; Neutrophils # 4.7 K/mcL (1.6-8.9); Platelet Count 192 K/mcL (140-400); Red Blood Count 5.26 M/mcL (4.19-5.50); Segmented Neutrophils % 50.3 %
[2016-07-20 06:19] LABS: INR 2.7; Prothrombin Time 29.9 Seconds (9.4-12.1)
[2016-07-20 06:29] LABS: Alanine Aminotransferase 38 Units/L (0-55); Albumin 3.3 g/dL (3.5-5.0); Albumin/Globulin Ratio 0.9 (1.1-2.2); Alkaline Phosphatase 135 Units/L (38-126); Aspartate Amino Transferase 34 Units/L (5-34); BUN/Creatinine Ratio 23 (6-26); Bilirubin,Total 0.7 mg/dL (0.2-1.2); Blood Urea Nitrogen 20 mg/dL (8-26); Calcium 9.1 mg/dL (8.6-10.8); Carbon Dioxide 26 mEq/L (19-29); Chloride 106 mEq/L (98-109); Globulin 3.6 g/dL (2.4-3.5); Glucose 91 mg/dL (70-99); Osmolality,Calculated 292 (280-300); Potassium 4.3 mEq/L (3.5-4.5); Sodium 140 mEq/L (136-145); Total Protein 6.9 g/dL (6.0-8.3); eGFR For African Americans > 60 (> 60); eGFR For Non-African Americans > 60 (> 60)
[2016-07-20] MEDS: Aspirin Enteric Coated 81 MG Tablet PO SCH (07:32)
[2016-07-20] MEDS: Loratadine 10 MG TABLET PO SCH (07:33)
[2016-07-20] MEDS: Fluticasone Propionate Nasal 50 MCG/SPRAY BOTTLE NS SCH ×2 (07:33→20:03)
--- NOTE | 2016-07-20 09:11 | Cardiology Progress Note ---
Date of Encounter: 07/20/16 Time of Encounter: 09:09 Assessment and Plan (1) NSTEMI (non-ST elevated myocardial infarction) Current Visit: Yes Status: Acute Troponin 0.20, 0.45, 0.26--now downtrending. No recurrent chest pain. Will not heparinize unless INR is <2 since pt is anticoagulated on Coumadin-- currently on hold. INR 2.7 EKG with evidence of inferior MS, Q waves noted. Started ASA, Statin, BB. Reports hx of intolerance to BB. Lowest HR noted 46 during nocturnal hours and reports dizziness after PM lopressor dose. Will switch to Toprol XL and decrease dose to 12.5mg daily. Recommend [facility] once INR allows. R/B/A discussed and pt agrees to proceed. Plan for when INR allows (<=2). Echo EF preserved with normal wall motion. Will continue to follow. (2) H/O mechanical aortic valve replacement Current Visit: Yes Status: Acute Type A aortic dissection in 1984, repair of dissection as well as mechanical Medtronic-Valadez valve replacement. Echo 02/2015 normal functioning valve. Current echo shows possible prosthetic , MG 29, PV 3.77, not severe. No further testing for valve needed at this time. Anticoagulated on Coumadin, INR 2.7. Coumadin on hold. Recommend heparin gtt when INR <2. Pt reports eating spinach last night and that his INR will come down quick. Will check INR at 5PM today. Pt requests that once he is okay to go home after [facility], if INR is <2, he would like to be sent home on Lovenox bridging, not stay for heparin gtt. (3) History of aortic dissection Current Visit: Yes Status: Resolved As above, s/p repair in 1984. Chest CT obtained shows no acute dissection. Discussion w patient/family: The assessment and plan as outlined above was discussed with the patient and/or family members who expressed understanding and agreement. All questions were answered. Thank you for involving us in the care of your patient. Please call with any questions. I will discuss all the above with Dr. Bonds and make changes as necessary. Subjective Principal diagnosis: NSTEMI Interval history: Troponins 0.20, 0.45, 0.26. Pt denies any recurrent chest or arm/shoulder pain overnight. Pt reports feeling dizzy after PM lopressor was given. HR 50s at bedside. INR 2.7 today. Echo EF 65%, normal wall motion, mild LVH, mild diastolic dysfunction, possible prosthetic . Chest CT no dissection. Aortic arch 4.1cm dilated. Objective Vital Signs, Last 4 Hours Temp Pulse Resp BP Pulse Ox 07/20/16 07:41 97.6 F 55 16 126/83 96 Vital Signs Temp Pulse Resp BP Pulse Ox 07/20/16 07:41 97.6 F 55 16 126/83 96 07/20/16 04:30 97.5 F L 50 15 110/77 97 07/19/16 20:58 56 16 113/76 07/19/16 20:55 97.9 F 56 16 113/76 98 07/19/16 15:06 97.6 F 52 18 121/72 97 General: Conversant, No Apparent Distress HEENT: Atraumatic, Normocephaly, Mucus Membranes Moist Neck: No JVD, Normal carotid pulses Cardiac: Reg Rate and Rhythm, Normal S1 and S2 Lungs: Normal Breath Sounds, No Wheeze, Rales, Rhonchi Neuro: Alert and responsive, No focal deficits noted Abdomen: Soft, Non-Tender Skin: No rashes noted on visualized skin Musculoskeletal: No Chest Wall Tenderness Extremities: No Clubbing, No Cyanosis, No Edema, Normal Pulses Results 07/20/16 05:38 07/20/16 05:38 Lab Results 07/19/16 07/20/16 07/20/16 09:16 05:38 05:38 WBC 9.4 Hgb 15.4 Hct 46.2 Plt Count 192 INR 3.9 2.7 Sodium Potassium Chloride Carbon Dioxide BUN Creatinine Glucose Calcium Total Bilirubin AST ALT Alkaline Phosphatase 07/20/16 05:38 WBC Hgb Hct Plt Count INR Sodium 140 Potassium 4.3 Chloride 106 Carbon Dioxide 26 BUN 20 Creatinine 0.88 Glucose 91 Calcium 9.1 Total Bilirubin 0.7 AST 34 ALT 38 Alkaline Phosphatase 135 H Short CBC 07/20/16 Range/Units 05:38 WBC 9.4 (4.3-11.1) K/mcL Hgb 15.4 (12.9-16.9) g/dL Hct 46.2 (37.5-50.1) % Plt Count 192 (140-400) K/mcL Neutrophils # 4.7 (1.6-8.9) K/mcL BMP 07/20/16 Range/Units 05:38 Sodium 140 (136-145) mEq/L Potassium 4.3 (3.5-4.5) mEq/L Chloride 106 (98-109) mEq/L Carbon Dioxide 26 (19-29) mEq/L BUN 20 (8-26) mg/dL Creatinine 0.88 (0.72-1.25) mg/dL Glucose 91 (70-99) mg/dL Calcium 9.1 (8.6-10.8) mg/dL Liver Function 07/20/16 Range/Units 05:38 Total Bilirubin 0.7 (0.2-1.2) mg/dL AST 34 (5-34) Units/L ALT 38 (0-55) Units/L Alkaline Phosphatase 135 H (38-126) Units/L Albumin 3.3 L (3.5-5.0) g/dL Active Medications Aspirin (Aspirin Ec) 81 mg PO DAILY BRIAN Stop: 01/17/17 14:46 Last Admin: 07/20/16 07:32 Dose: 81 mg Atorvastatin Calcium (Lipitor) 40 mg PO HS BRIAN Stop: 01/17/17 21:01 Last Admin: 07/19/16 20:55 Dose: 40 mg Fluticasone Propionate (Flonase) 50 mcg NS BID BRIAN PRN Reason: Protocol Stop: 01/18/17 09:31 Last Admin: 07/20/16 07:33 Dose: 50 mcg Loratadine (Claritin) 10 mg PO DAILY BRIAN PRN Reason: Protocol Stop: 01/18/17 09:31 Last Admin: 07/20/16 07:33 Dose: 10 mg Metoprolol Tartrate (Lopressor) 25 mg PO BID BRIAN Stop: 01/17/17 21:01 Last Admin: 07/20/16 07:33 Dose: 25 mg Naloxone HCl (Narcan) 0.4 mg IVP Q2MIN PRN PRN Reason: Opioid Reversal Stop: 01/17/17 15:01 Omeprazole (Prilosec) 20 mg PO DAILY@0730 BRIAN PRN Reason: Protocol Stop: 01/19/17 07:31 Last Admin: 07/20/16 07:32 Dose: 20 mg Warfarin Sodium (Coumadin Perpt) 1 each PO DAILY@1800 PRN PRN Reason: SEE COMMENTS Stop: 10/28/17 18:01 - Imaging and Cardiology Echo: report reviewed - EKG Interpretation EKG results cardiology: other (24 hour tele AVG HR 53, SR, lowest HR noted 46) Consult Discharge Plan - Plan Referrals: Benedicto Workman DO [Primary Care Provider] - 07/29/16 9:30 am
--- NOTE | 2016-07-20 16:05 | Internal Med Progress Note ---
Date of Encounter: 07/20/16 Time of Encounter: 16:04 - Assessment and plan (1) NSTEMI (non-ST elevated myocardial infarction) Current Visit: Yes Status: Acute Assessment and plan: Patient is admitted with chest pain. Troponin is elevated. Troponin has downward trend. Cardiology on the board. Plan for cardiac catheterization noted. 07/20/2016 Cardiology updates noted. Likely cardiac catheterization on Friday. We will follow cardiac recommendations (2) H/O mechanical aortic valve replacement Current Visit: Yes Status: Acute Assessment and plan: History of a mechanical aortic valve. It was done 32 years back. On Coumadin Presently his INR is subtherapeutic. We will wait and observe closely. (3) History of aortic dissection Current Visit: Yes Status: Resolved Assessment and plan: Previous history of aortic dissection. No acute issues. - Subjective Interval history: Patient seen and examined. Chart reviewed. Patient is comfortably lying in the bed. Family is at bedside. Patient denies chest pain, short of breath, dizziness or diarrhea. 07/20/2016 Seen and examined. Chart reviewed. Patient is comfortably sitting on the bed. Patient denies chest pain, shortness of breath, dizziness, abdominal pain or nausea. - Constitutional Vitals: Temp Pulse Resp BP Pulse Ox 97.8 F 58 16 110/76 97 07/20/16 15:01 07/20/16 15:01 07/20/16 15:01 07/20/16 15:01 07/20/16 15:01 General appearance: Present: cooperative, A&O X 3, answers questions appropriately - Head Head exam: Present: atraumatic, normocephalic - Eye Eye exam: Present: PERRL, conjuntiva pink, sclera anicteric Pupils: Present: PERRL - Neck Neck exam general surgery: Present: supple, trachea midline. Absent: lymphadenopathy - Respiratory Respiratory exam: Present: CTAB. Absent: accessory muscle use, rales, rhonchi, wheezes - Cardiovascular Cardiovascular exam: Present: RRR, +S1, +S2. Absent: diastolic murmur, gallop, rubs, systolic murmur - GI/Abdominal GI/Abdominal exam: Present: normal bowel sounds, soft, no peritoneal signs. Absent: distended, tenderness - Extremities Exam Extremities exam: Present: warm, radial pulses palpable and symetrical. Absent : calf tenderness, cyanotic, pedal edema - Neurological Exam Neurological exam: Present: CN II-XII intact, oriented X3, no focal deficits. Absent: pronater drift, facial droop, speech deficit - Skin Skin exam: Present: dry, intact Internal Medicine: Result - Labs CBC & Chem 7: 07/20/16 05:38 07/20/16 05:38 Labs: Short CBC 07/20/16 Range/Units 05:38 WBC 9.4 (4.3-11.1) K/mcL Hgb 15.4 (12.9-16.9) g/dL Hct 46.2 (37.5-50.1) % Plt Count 192 (140-400) K/mcL Neutrophils # 4.7 (1.6-8.9) K/mcL BMP 07/20/16 05:38 Sodium 140 Potassium 4.3 Chloride 106 Carbon Dioxide 26 BUN 20 Creatinine 0.88 Glucose 91 Calcium 9.1 Liver Function 07/20/16 Range/Units 05:38 Total Bilirubin 0.7 (0.2-1.2) mg/dL AST 34 (5-34) Units/L ALT 38 (0-55) Units/L Alkaline Phosphatase 135 H (38-126) Units/L Albumin 3.3 L (3.5-5.0) g/dL - ABG Interpretation ABG results: PT/INR, D-dimer PT 29.9 Seconds (9.4-12.1) H 07/20/16 05:38 Consult Discharge Plan - Plan Referrals: Benedicto Workman DO [Primary Care Provider] - 07/29/16 9:30 am
[2016-07-20] MEDS ORDERED: *HR* Warfarin 5 MG TABLET PO ONE (18:00)
[2016-07-20 18:01] LABS: INR 1.9; Prothrombin Time 20.6 Seconds (9.4-12.1)
[2016-07-20] MEDS ORDERED: *HR* Heparin 5,000 UNIT/ML VIAL IVP PRN ×2 (18:30)
[2016-07-20] MEDS ORDERED: *HR* Heparin 5,000 UNIT/ML VIAL IVP ONE (18:30)
[2016-07-20 18:36] LABS: Activated Partial Thrombo Time 30.5 Seconds (26.0-36.0)
[2016-07-20 19:07] LABS: Hematocrit 46.3 % (37.5-50.1); Hemoglobin 15.7 g/dL (12.9-16.9); Mean Corpuscular HGB Conc 33.9 g/dL (31.6-35.5); Mean Corpuscular Hemoglobin 29.6 pg (28.0-33.3); Mean Corpuscular Volume 87.2 fL (83.0-100.0); Mean Platelet Volume 11.4 fL (9.4-12.4); Platelet Count 187 K/mcL (140-400); Red Blood Count 5.31 M/mcL (4.19-5.50); Red Cell Distribution Width 12.8 % (11.5-14.5)
[2016-07-20 19:13] LABS: INR 1.8
[2016-07-20 19:16] LABS: Activated Partial Thrombo Time 37.6 Seconds (26.0-36.0)
[2016-07-20] MEDS: Heparin 25,000 UNIT/500 ML D5W 25,000 UNIT/500 ML MLS IVC SCH (20:00)
[2016-07-21 02:33] LABS: Basophils % 0.4 %; Eosinophils # 0.3 K/mcL (0.0-0.6); Eosinophils % 3.2 %; Hematocrit 43.4 % (37.5-50.1); Hemoglobin 14.8 g/dL (12.9-16.9); Immature Granulocytes % 0.3 % (0-4); Lymphocytes # 3.5 K/mcL (0.6-4.6); Lymphocytes % 36.8 %; Mean Corpuscular HGB Conc 34.1 g/dL (31.6-35.5); Mean Corpuscular Hemoglobin 29.5 pg (28.0-33.3); Mean Corpuscular Volume 86.5 fL (83.0-100.0); Mean Platelet Volume 11.6 fL (9.4-12.4); Monocytes % 10.1 %; Neutrophils # 4.7 K/mcL (1.6-8.9); Platelet Count 175 K/mcL (140-400); Red Blood Count 5.02 M/mcL (4.19-5.50); Red Cell Distribution Width 12.6 % (11.5-14.5); Segmented Neutrophils % 49.2 %
[2016-07-21 02:47] LABS: Alanine Aminotransferase 36 Units/L (0-55); Albumin 3.2 g/dL (3.5-5.0); Alkaline Phosphatase 143 Units/L (38-126); Aspartate Amino Transferase 28 Units/L (5-34); BUN/Creatinine Ratio 23 (6-26); Bilirubin,Total 0.9 mg/dL (0.2-1.2); Blood Urea Nitrogen 18 mg/dL (8-26); Calcium 9.1 mg/dL (8.6-10.8); Carbon Dioxide 28 mEq/L (19-29); Chloride 106 mEq/L (98-109); Globulin 3.3 g/dL (2.4-3.5); Glucose 120 mg/dL (70-99); Osmolality,Calculated 295 (280-300); Potassium 3.7 mEq/L (3.5-4.5); Sodium 141 mEq/L (136-145); Total Protein 6.5 g/dL (6.0-8.3); eGFR For African Americans > 60 (> 60); eGFR For Non-African Americans > 60 (> 60)
[2016-07-21 03:01] LABS: INR 1.9; Prothrombin Time 21.1 Seconds (9.4-12.1)
[2016-07-21 04:43] LABS: Activated Partial Thrombo Time > 360.0 Seconds (26.0-36.0); Heparin anti-factor XA UFH 1.23 IU/mL (0.30-0.70)
[2016-07-21 05:34] LABS: D-Dimer 268 ng/mLFEU (0-500)
[2016-07-21 05:43] LABS: Fibrinogen 383 mg/dL (169-393)
[2016-07-21] MEDS: Metoprolol XL (24 HR) Succ 25 MG TAB.ER.24H PO SCH (07:57)
[2016-07-21] MEDS: Loratadine 10 MG TABLET PO SCH (07:57)
[2016-07-21] MEDS: Aspirin Enteric Coated 81 MG Tablet PO SCH (07:57)
[2016-07-21] MEDS: Fluticasone Propionate Nasal 50 MCG/SPRAY BOTTLE NS SCH ×2 (07:57→23:17)
--- NOTE | 2016-07-21 11:09 | Cardiology Progress Note ---
Date of Encounter: 07/21/16 Time of Encounter: 11:06 Assessment and Plan (1) NSTEMI (non-ST elevated myocardial infarction) Current Visit: Yes Status: Acute Troponin 0.20, 0.45, 0.26--now downtrending. No recurrent chest pain. INR 1.9--now on heparin gtt. EKG with evidence of inferior CO, Q waves noted. Started ASA, Statin, BB. Reports hx of intolerance to BB. Switched to Toprol XL 12.5 mg this AM. Will monitor tele. Lowest HR overnigth 51bpm. Recommend [facility] now that INR is <2. R/B/A discussed and pt agrees to proceed. [facility] either today or tomorrow. NPO for now. Echo EF preserved with normal wall motion. Will continue to follow. (2) H/O mechanical aortic valve replacement Current Visit: Yes Status: Acute Type A aortic dissection in 1984, repair of dissection as well as mechanical Medtronic-Valadez valve replacement. Echo 02/2015 normal functioning valve. Current echo shows possible prosthetic , MG 29, PV 3.77, not severe. No further testing for valve needed at this time. Anticoagulated on Coumadin, INR 1.9--heparin gtt started. Coumadin on hold. Pt requests that once he is okay to go home after [facility], if INR is <2, he would like to be sent home on Lovenox bridging, not stay for heparin gtt. (3) History of aortic dissection Current Visit: Yes Status: Resolved As above, s/p repair in [address]. Chest [address] obtained shows no acute dissection. Discussion w patient/family: The assessment and plan as outlined above was discussed with the patient and/or family members who expressed understanding and agreement. All questions were answered. Thank you for involving us in the care of your patient. Please call with any questions. I will discuss all the above with Dr. Bonds and make changes as necessary. Subjective Principal diagnosis: NSTEMI Interval history: Troponins 0.20, 0.45, 0.26. Pt denies any recurrent chest or arm/shoulder pain overnight. INR 1.9 today--heparin gtt started. Echo EF 65%, normal wall motion, mild LVH, mild diastolic dysfunction, possible prosthetic . Chest CT no dissection. Aortic arch 4.1cm dilated. Objective Vital Signs, Last 4 Hours Pulse Ox 07/21/16 08:00 97 Vital Signs Temp Pulse Resp BP Pulse Ox 07/21/16 08:00 97 07/21/16 06:48 98 F 68 18 124/79 97 07/21/16 04:05 97.9 F 66 16 130/91 96 07/20/16 20:17 95 07/20/16 19:37 98.1 F 62 16 129/80 95 07/20/16 15:01 97.8 F 58 16 110/76 97 Intake and Output 07/20/16 07/21/16 07/21/16 23:59 07:59 15:59 Intake Total 480 / 480 840 / 840 0 / 0 Balance 480 / 480 840 / 840 0 / 0 Intake: IV Fluids 140 / 140 0 / 0 Heparin 25,000 UNIT/500 140 / 140 0 / 0 ML D5W 25,000 unit In 500 ml @ 14 UNIT/KG/HR 22.82 mls/hr IVC .[id number] BRIAN Rx#:[id number] Oral 480 / 480 700 / 700 Other: Meal Dinner Percent of Meal Consumed 100% # Voids 0 0 Weight 80.9 kg Patient Weight 07/21/16 23:59 Weight 80.9 kg General: Conversant, No Apparent Distress HEENT: Atraumatic, Normocephaly, Mucus Membranes Moist Neck: No JVD, Normal carotid pulses Cardiac: Reg Rate and Rhythm, Normal S1 and S2 Lungs: Normal Breath Sounds, No Wheeze, Rales, Rhonchi Neuro: Alert and responsive, No focal deficits noted Abdomen: Soft, Non-Tender Skin: No rashes noted on visualized skin Musculoskeletal: No Chest Wall Tenderness Extremities: No Clubbing, No Cyanosis, No Edema Results 07/21/16 02:19 07/21/16 02:19 Lab Results 07/20/16 07/20/16 07/20/16 17:44 18:48 18:48 WBC 10.2 Hgb 15.7 Hct 46.3 Plt Count 187 INR 1.9 1.8 APTT 30.5 37.6 H D-Dimer Sodium Potassium Chloride Carbon Dioxide BUN Creatinine Glucose Calcium Total Bilirubin AST ALT Alkaline Phosphatase 07/21/16 07/21/16 07/21/16 02:19 02:19 02:19 WBC 9.4 Hgb 14.8 Hct 43.4 Plt Count 175 INR 1.9 APTT D-Dimer Sodium 141 Potassium 3.7 Chloride 106 Carbon Dioxide 28 BUN 18 Creatinine 0.78 Glucose 120 H Calcium 9.1 Total Bilirubin 0.9 AST 28 ALT 36 Alkaline Phosphatase 143 H 07/21/16 07/21/16 07/21/16 04:10 04:10 06:02 WBC Hgb Hct Plt Count INR APTT > 360.0 H* D 160.2 H* D D-Dimer 268 Sodium Potassium Chloride Carbon Dioxide BUN Creatinine Glucose Calcium Total Bilirubin AST ALT Alkaline Phosphatase Short CBC 07/21/16 07/20/16 Range/Units 02:19 18:48 WBC 9.4 10.2 (4.3-11.1) K/mcL Hgb 14.8 15.7 (12.9-16.9) g/dL Hct 43.4 46.3 (37.5-50.1) % Plt Count 175 187 (140-400) K/mcL Neutrophils # 4.7 (1.6-8.9) K/mcL BMP 07/21/16 Range/Units 02:19 Sodium 141 (136-145) mEq/L Potassium 3.7 (3.5-4.5) mEq/L Chloride 106 (98-109) mEq/L Carbon Dioxide 28 (19-29) mEq/L BUN 18 (8-26) mg/dL Creatinine 0.78 (0.72-1.25) mg/dL Glucose 120 H (70-99) mg/dL Calcium 9.1 (8.6-10.8) mg/dL Liver Function 07/21/16 Range/Units 02:19 Total Bilirubin 0.9 (0.2-1.2) mg/dL AST 28 (5-34) Units/L ALT 36 (0-55) Units/L Alkaline Phosphatase 143 H (38-126) Units/L Albumin 3.2 L (3.5-5.0) g/dL Active Medications Aspirin (Aspirin Ec) 81 mg PO DAILY BRIAN Stop: 01/17/17 14:46 Last Admin: 07/21/16 07:57 Dose: 81 mg Atorvastatin Calcium (Lipitor) 40 mg PO HS BRIAN Stop: 01/17/17 21:01 Last Admin: 07/20/16 20:03 Dose: 40 mg Fluticasone Propionate (Flonase) 50 mcg NS BID BRIAN PRN Reason: Protocol Stop: 01/18/17 09:31 Last Admin: 07/21/16 07:57 Dose: 50 mcg Heparin Sodium (Porcine) (Heparin) 5,700 unit 70 unit/kg (5700 unit) IVP Q6HR PRN PRN Reason: SEE COMMENTS Stop: 01/19/17 18:31 Heparin Sodium (Porcine) (Heparin) 2,900 unit 35 unit/kg (2900 unit) IVP Q6H PRN PRN Reason: SEE COMMENTS Stop: 01/19/17 18:31 Heparin Sodium/Dextrose (Heparin 25,000 Unit/500 Ml D5w) 25,000 unit in 500 mls @ 22.82 mls/hr IVC .[id number] BRIAN; 14 UNIT/KG/HR PRN Reason: Protocol Stop: 01/19/17 18:31 Last Titration: 07/21/16 08:09 Dose: 11 unit/kg/hr, 17.93 mls/hr Loratadine (Claritin) 10 mg PO DAILY BRIAN PRN Reason: Protocol Stop: 01/18/17 09:31 Last Admin: 07/21/16 07:57 Dose: 10 mg Metoprolol Succinate (Toprol Xl) 12.5 mg PO DAILY BRIAN Stop: 01/20/17 09:01 Last Admin: 07/21/16 07:57 Dose: 12.5 mg Naloxone HCl (Narcan) 0.4 mg IVP Q2MIN PRN PRN Reason: Opioid Reversal Stop: 01/17/17 15:01 Omeprazole (Prilosec) 20 mg PO DAILY@0730 BRIAN PRN Reason: Protocol Stop: 01/19/17 07:31 Last Admin: 07/21/16 07:57 Dose: 20 mg Warfarin Sodium (Coumadin Perpt) 1 each PO DAILY@1800 PRN PRN Reason: SEE COMMENTS Stop: 01/18/17 18:01 - Imaging and Cardiology Echo: report reviewed - EKG Interpretation EKG results cardiology: other (24 hour tele AVG HR 60, SR, no significant pauses or arrhythmias.) Consult Discharge Plan - Plan Referrals: Benedicto Workman DO [Primary Care Provider] - 07/29/16 9:30 am
[2016-07-21] MEDS ORDERED: *HR* Heparin 10,000 UNIT/10 ML VIAL ONE (15:19)
[2016-07-21] MEDS ORDERED: Heparin 1,000 UNITS/500 mL NS 500 ML ONE (15:20)
[2016-07-21] MEDS ORDERED: 0.9 % Sodium Chloride 1,000 ML ONE ×2 (15:20→15:58)
[2016-07-21] MEDS ORDERED: Nitroglycerin 1,000 MCG/10 ML VIAL IV ONE (15:21)
--- NOTE | 2016-07-21 15:25 | Pre-Sedation Evaluation ---
Pre-sedation evaluation - Pre-sedation checklist Date of procedure: 07/21/16 Procedure: [facility] Recent Vitals: Last Vital Signs Temp 97.9 F 07/21/16 11:19 Pulse 56 07/21/16 11:19 Resp 16 07/21/16 11:19 BP 124/77 07/21/16 11:19 Pulse Ox 97 07/21/16 11:19 H&P (including ROS) documented in medical record: Yes Previous reaction to sedatives/anesthetics: No Dietary Status: NPO after Midnight Airway Assessment: Patient can open mouth completely, TMJ function normal, Micrognathia (under-bite, receding chin) absent, Neck with adequate range of motion Dentition: No loose teeth or bridges Possible difficult airway: No ASA Classification *see protocol: CLASS II-Mild systemic disease Plan of Care: Pt appropriate candidate for procedure/moderate/conscious sedation , Risks/benefits of procedure/sedation discussed w/ patient/family
[2016-07-21] MEDS ORDERED: *HR* Midazolam HCl 2 MG/2 ML VIAL ONE (15:59)
[2016-07-21] MEDS ORDERED: *HR* FentaNYL (PF) 100 MCG/2 ML VIAL ONE (15:59)
--- NOTE | 2016-07-21 16:35 | Internal Med Progress Note ---
Date of Encounter: 07/21/16 Time of Encounter: 16:34 - Assessment and plan (1) NSTEMI (non-ST elevated myocardial infarction) Current Visit: Yes Status: Acute Assessment and plan: Patient is admitted with chest pain. Troponin is elevated. Troponin has downward trend. Cardiology on the board. Plan for cardiac catheterization noted. 07/20/2016 Cardiology updates noted. Likely cardiac catheterization on Friday. We will follow cardiac recommendations 07/21/2016 Noted that patient is scheduled for cardiac catheterization today (2) H/O mechanical aortic valve replacement Current Visit: Yes Status: Acute Assessment and plan: History of a mechanical aortic valve. It was done 32 years back. On Coumadin Presently his INR is subtherapeutic. We will wait and observe closely. (3) History of aortic dissection Current Visit: Yes Status: Resolved Assessment and plan: Previous history of aortic dissection. No acute issues. - Subjective Interval history: Patient seen and examined. Chart reviewed. Patient is comfortably lying in the bed. Family is at bedside. Patient denies chest pain, short of breath, dizziness or diarrhea. 07/20/2016 Seen and examined. Chart reviewed. Patient is comfortably sitting on the bed. Patient denies chest pain, shortness of breath, dizziness, abdominal pain or nausea. 07/21/2016 Seen and examined. Chart reviewed. Patient denies chest pain. Noted that patient is scheduled for cath today. - Constitutional Vitals: Temp Pulse Resp BP Pulse Ox 97.6 F 57 18 132/81 95 07/21/16 15:00 07/21/16 15:00 07/21/16 15:00 07/21/16 15:00 07/21/16 15:00 General appearance: Present: cooperative, A&O X 3, answers questions appropriately - Head Head exam: Present: atraumatic, normocephalic - Eye Eye exam: Present: PERRL, conjuntiva pink, sclera anicteric Pupils: Present: PERRL - Neck Neck exam general surgery: Present: supple, trachea midline. Absent: lymphadenopathy - Respiratory Respiratory exam: Present: CTAB. Absent: accessory muscle use, rales, rhonchi, wheezes - Cardiovascular Cardiovascular exam: Present: RRR, +S1, +S2. Absent: diastolic murmur, gallop, rubs, systolic murmur - GI/Abdominal GI/Abdominal exam: Present: normal bowel sounds, soft, no peritoneal signs. Absent: distended, tenderness - Extremities Exam Extremities exam: Present: warm, radial pulses palpable and symetrical. Absent : calf tenderness, cyanotic, pedal edema - Neurological Exam Neurological exam: Present: CN II-XII intact, oriented X3, no focal deficits. Absent: pronater drift, facial droop, speech deficit - Skin Skin exam: Present: dry, intact Internal Medicine: Result - Labs CBC & Chem 7: 07/21/16 02:19 07/21/16 02:19 Labs: Short CBC 07/20/16 07/21/16 Range/Units 18:48 02:19 WBC 10.2 9.4 (4.3-11.1) K/mcL Hgb 15.7 14.8 (12.9-16.9) g/dL Hct 46.3 43.4 (37.5-50.1) % Plt Count 187 175 (140-400) K/mcL Neutrophils # 4.7 (1.6-8.9) K/mcL BMP 07/21/16 02:19 Sodium 141 Potassium 3.7 Chloride 106 Carbon Dioxide 28 BUN 18 Creatinine 0.78 Glucose 120 H Calcium 9.1 Liver Function 07/21/16 Range/Units 02:19 Total Bilirubin 0.9 (0.2-1.2) mg/dL AST 28 (5-34) Units/L ALT 36 (0-55) Units/L Alkaline Phosphatase 143 H (38-126) Units/L Albumin 3.2 L (3.5-5.0) g/dL - ABG Interpretation ABG results: PT/INR, D-dimer PT 21.1 Seconds (9.4-12.1) H 07/21/16 02:19 D-Dimer 268 ng/mLFEU (0-500) 07/21/16 04:10 Consult Discharge Plan - Plan Referrals: Benedicto Workman DO [Primary Care Provider] - 07/29/16 9:30 am
[2016-07-21] MEDS ORDERED: *HR* Ticagrelor 90 MG TABLET ONE (16:44)
[2016-07-21] MEDS ORDERED: Nitroglycerin 0.4 MG TAB.SUBL SL PRN (17:07)
[2016-07-21] MEDS ORDERED: 0.9 % Sodium Chloride 1,000 ML IVC SCH (17:15)
--- NOTE | 2016-07-21 17:15 | Invasive Diagnostic Lab Proc ---
Name: Timothy Capellan Date of Study: 07/21/2016 Date: 1955 Ht: 66.0in Medical Record#: [id number] Age: 61 Wt: 178.79lb Gender: Male BSA: 1.91 Order #: [id number] BMI: 28.87 Physicians Procedure Physician: Suzette Felipe MD, [facility] Referring MD: Referring MD: Staff Name Position Time In Lara Grimes RT (R) Monitor 04:09 PM Jarrod Toney RT (R) Scrub 04:09 PM Garrison Santamaria RN [employer] Reporter 04:09 PM Jackie Toney RT (R) Monitor 04:26 PM Allison Rosenthal RT Scrub 04:26 PM Haylee Escalante RN [employer]elance [employer] Reporter 04:27 PM Indications Indication Non-Stemi Procedures Performed Procedure CORONARY ARTERY ANGIO S\\T\\I PRQ CARD EWA STENT W/ANGIO 1 VSL Pre-Procedure Checklist Informed consent is complete signed and on chart. H\\T\\P is on chart. ID band is on and ID verified with patient. Patient NPO for procedure The procedure was described for the patient and questions were answered. Blood Pressure: 124/77 ECG is on chart. Plan of Care Patient will tolerate the procedure without complications. Adequate level of comfort will be maintained. Hemodynamics will remain stable Patient will recover from procedure without complications. Respiratory function will be maintained. Cardiac rhythm will remain stable. Patient temperature will be maintained. Patient and/or family have verbalized understanding of the procedure. Patient Education Chief Complaint/Reason for Test: Cardiac Cath Developmental Category: Geriatric (65+ years) Developmentally Appropriate for Age: Yes Learning Barriers: None Education Needs: Procedure Education Method: Verbal Information Taught: Cardiac Cath Educational Evaluation: Able to repeat information Intravenous Access Time IV Size Location DC'd Fluid/Drip Rate Units RN 04:08 PM 20g 1 1/" Patent On Arrival Rt Antecubital 0.9NaCl 25 ml/hr Garrison Santamaria RN Allergies Levofloxacin morphine Oxycodone acetaminophen SYNTHETIC MORPHINE Vital Signs Time BP (mmHg) HR (bpm) O2 Sat. RR (bpm) LOC 124 / 77 56 97 % 16 04:11 PM / % 5 = Fully awake and oriented or at pre-proc level 04:11 PM / % 4 = Oriented but drowsy 04:26 PM / % 4 = Oriented but drowsy 04:13 PM 141 / 84 59 100 % 14 04:17 PM 148 / 83 59 100 % 16 04:23 PM 125 / 78 59 100 % 16 04:27 PM 136 / 92 73 100 % 21 04:32 PM 138 / 87 73 100 % 19 04:37 PM 137 / 82 73 100 % 18 04:42 PM 129 / 78 64 100 % 18 04:47 PM 124 / 79 59 100 % 14 Procedural Medications Time Medication Dose Units Method Given By 04:10 PM Oxygen 2 L/min nasal cannula Garrison Santamaria RN 04:10 PM Versed 2 mg Intravenous HenthorneGarrison RN 04:10 PM Fentanyl 50 mcg Intravenous GarretornGarrison clark RN 04:13 PM Lidocaine 2% 18 ml Subcutaneous Suzette Felipe MD, FAC 04:29 PM Heparin 3000 units Intravenous Haylee Escalante RN 04:37 PM Nitroglycerin 200 mcg Intracoronary Suzette Felipe MD, FACC 04:43 PM Brilinta 180 mg Orally Haylee Escalante RN ASA Classification: CLASS II- Mild systemic disease (i.e. well-controlled diabetes, hypertension, asthma, cigarette smoking) Aide Score Preprocedure Postprocedure Activity 2- Moves 4 extremities sustained head lift Activity 2- Moves 4 extremities sustained head lift Circulation 2- SBP +/= 20 points of pre-anesthetic level Circulation 2- SBP +/= 20 points of pre-anesthetic level Consciousness 2- Awake and alert oriented x 3 Consciousness 2- Awake and alert oriented x 3 O2 Saturation 2- Able to maintain O2 satruation of 92% on room air O2 Saturation 2- Able to maintain O2 satruation of 92% on room air Respiratory 2- Able to deep breathe and cough well Respiratory 2- Able to deep breathe and cough well Total Score 10 Total Score 10 Contrast Agent: Isovue Diagnostic Contrast: 127 ml Total Contrast: 127 ml Fluoro Dose: 520 mGy Activated Clotting Time Time Seconds to Clot 04:30 PM 161 04:40 PM 251 Procedure Log Time Note Enter By 04:00 PM CathStat 04:08 PM Pt arrived to [facility] 1 at 16:08 [facility] 04:09 PM Lara Grimes RT (R) Position: Monitor Time in: 16:09 [facility] 04:09 PM Jarrod Toney RT (R) Position: Scrub Time in: 16:09 dspell: PM Garrison Santamaria RN Position: Freelance Court Reporter Time in: 16:09 dsp: PM Patient charges- Angio tray pack, Navilyst 3mm J, Pulse Oximetry and ACIST tubing and transducer dspell: PM IV Supplies used: J loop Angio Cath. dspell 04:10 PM Case Delayed No dspell:10 PM Hair removed from procedure site in procedure lab using clippers. Bilateral groin prepped with Chloraprep by Jarrod Toney RT (R), safety strap applied then patient was draped. Skin intact. dspell 04:10 PM Physician arrived 16:10 dspell:10 PM ASA Class CLASS II- Mild systemic disease (i.e. well-controlled diabetes, hypertension, asthma, cigarette smoking) dspell:10 PM Meet and greet completed dsp 04:10 PM Sign in performed according to hospital policy. :10 PM Procedure start 16:10 dspell: PM Case Start 04:10 PM Time: 16:10 Oxygen on at 2 L/min per nasal cannula by Garrison Santamaria RN [email or web address] 04:10 PM Time: 16:10 Versed 2 mg Intravenous Given by Garrison Santamaria RN sukhwinder:11 PM Time: 16:10 Fentanyl 50 mcg Intravenous Given by Garrison Santamaria RN 04:11 PM Time: 16:11 Patient comfortable and pain free: Yes : PM Time: 16:11LOC: 5 = Fully awake and oriented or at pre-proc level dspell:11 PM Clinical Presentation: Non-STEMI dspell:12 PM Time out performed according to hospital policy dspell 04:12 PM Vitals capture started with the following parameters, Patient=Adult, Interval=5 min, Initial Jchitdsl=476 mmHg, Deflation Rate=5 mmHg, Cuff placed on Left Leg 04:13 PM HR=59 bpm, AQXA=915/84 mmhg, ZyR8=310.0 %, Resp=14 B/min, Comment=NSR 04:14 PM Pressure channel 1 zeroed. 04:14 PM Time: 16:13 18 ml Lidocaine 2% to right groin Subcutaneous Given by Suzette Felipe MD, FACC dspellman 04:14 PM Access obtained by percutaneous puncture. 5Fr 10cm Terumo Robards sheath placed in right Femoral artery. [id number] dspellman 04:15 PM 5Fr FL 4 catheter inserted over the wire [facility] dspellman 04:15 PM 0.035 145cm Navilyst 3mmJ wire [id number] dspellman 04:15 PM LCA angiography performed in multiple views. dspellman 04:15 PM Recorded Pressure: Ao, HR=60, Condition=Condition 1 (Aorta) Ao 145/80/105 04:16 PM Recorded Pressure: Ao, HR=61, Condition=Condition 1 (Aorta) Ao 125/76/98 04:17 PM Catheter removed dspellman 04:17 PM 5Fr FR 4 catheter inserted over the wire [facility] dspellman 04:17 PM RCA angiography performed in multiple views. dspellman 04:17 PM HR=59 bpm, STXS=786/83 mmhg, ZtB6=063.0 %, Resp=16 B/min, Comment=NSR 04:19 PM Catheter removed dspell 04:19 PM Coronary Dominance: right dspellman 04:23 PM HR=59 bpm, NCCE=250/78 mmhg, IiL1=744.0 %, Resp=16 B/min, Comment=NSR 04:24 PM Lesion found in Mid LAD. Pre Stenosis: 90 Pre KEKE Flow: 3: Complete and Brisk Flow/Perfusion dspellman 04:24 PM PCI Status Urgent dspellman 04:24 PM PCI Indication: PCI for high risk Non-STEMI or unstable angina dspellman 04:25 PM PCI lesion in Proximal LAD. Pre Stenosis: 30 Pre KEKE Flow: 3: Complete and Brisk Flow/Perfusion dspellman 04:25 PM Sheath exchanged for a 6 Fr 11 cm Cordis Nona sheath [id number] dspellman 04:25 PM ACT drawn dspellman 04:25 PM Inflation device was opened. dspellman 04:26 PM Time: 16:11 Patient comfortable and pain free: Yes dspellman 04:26 PM Time: 16:11LOC: 4 = Oriented but drowsy dspellman 04:26 PM Jackie Toney RT (R) Position: Monitor Time in: 16:26 to relieve Lara Grimes RT (R) dspellman 04:27 PM Allison Rosenthal RT Position: Scrub Time in: 16:26 to relieve Jarrod Toney RT (R) dspsukhwinder 04:27 PM HR=73 bpm, IBNP=262/92 mmhg, InE2=779.0 %, Resp=21 B/min, Comment=NSR 04:28 PM Haylee Escalante RN Position: Freelance Court Reporter Time in: 16:27 to relieve Garrison Santamaria RN adriana 04:28 PM 6Fr XB LAD 3.5 Cordis guide catheter was used to cannulate the PCI vessel successfully. reused? No twilson 04:29 PM At 16:29 the ACT was 161 seconds. twilson 04:29 PM Time: 16:29 Heparin 3000 units Intravenous Given by Haylee Escalante RN twilson 04:30 PM .014 Prowater 180cm guide wire across target lesion- successful. reused? No twilson 04:30 PM Recorded Pressure: Ao, HR=66, Condition=Condition 1 (Aorta) Ao 127/68/94 04:31 PM 2.0 mm x 15 mm Mini Trek Rx balloon across target lesion- successful. reused? No twilson 04:32 PM Balloon inflated @ 8 rosalina for 20 seconds twilson 04:32 PM HR=73 bpm, FVHT=223/87 mmhg, TrD2=464.0 %, Resp=19 B/min, Comment=NSR 04:33 PM Balloon catheter removed intact. twilson 04:35 PM 2.5mm x 20mm Synergy bioabsorbable stent across target lesion- successful Lot #[id number] twilson 04:35 PM Stent deployed @ 11 rosalina for 30 seconds twilson 04:36 PM Stent delivery system removed intact. twilson 04:37 PM Time: 16:37 Nitroglycerin 200 mcg Intracoronary Given by Suzette Felipe MD, [facility] twilson 04:37 PM Guide wire removed intact. twilson 04:37 PM J-wire reinserted and guide catheter and j-wire removed, intact. twilson 04:37 PM HR=73 bpm, UBHL=278/82 mmhg, MnZ4=912.0 %, Resp=18 B/min, Comment=NSR 04:38 PM ACT drawn. twilson 04:38 PM Bolus angiogram of right Femoral complete: 2 ml/sec for a total of 4 mls twilson 04:40 PM Procedure completed at 16:40 twilson 04:40 PM At 16:40 the ACT was 251 seconds. twilson 04:41 PM Sign out completed: Radiation Dose 519.66 mGy Fluoro Time: 4.9 Isovue 370 - 200ml contrast 127 ml given by Suzette Felipe MD, [facility]. Complications: NoneCardiac Rehab Consult needed: YesConfirmed administered medications: Yes twilson 04:41 PM Time: 16:26 Patient comfortable and pain free: Yes twilson 04:41 PM Time: 16:26LOC: 4 = Oriented but drowsy twilson 04:42 PM Isovue 370 - 200ml,1 Bottle(s) used. twilson 04:42 PM Arterial sheath pulled, Mynx closure device used and was Successful S/N. twilson 04:42 PM HR=64 bpm, GDML=797/78 mmhg, ZaZ8=839.0 %, Resp=18 B/min 04:43 PM Post Blood Pressure 129/78 twilson 04:44 PM Time: 16:43 Brilinta 180 mg Orally Given by Haylee Escalante RN twilson 04:45 PM 16:45 Post Pulses Bilateral DP \\T\\ PT 2+ twilson 04:45 PM 16:45 Post Pulses Bilateral radial 2+ twilson 04:45 PM Information taught Cardiac Cath, PCI, and Mynx twilson 04:45 PM Education needs Procedure, Plan of Care, and Responsibilities of Patient in Care twilson 04:45 PM Learning barriers :None twilson 04:45 PM Education Methods Verbal twilson 04:45 PM Education evaluation Able to repeat information twilson 04:45 PM Site status No bleeding/hematoma - Rt Groin as reported by Allison Rosenthal RT at 16:45 twilson 04:45 PM Opsite applied twilson 04:45 PM Family placed in consult room. twilson 04:47 PM HR=59 bpm, TRSB=933/79 mmhg, CxQ9=277.0 %, Resp=14 B/min 04:52 PM Coronary Dominance: right twilson 04:53 PM Vitals capture stopped. 04:53 PM Lesion found in Proximal RCA. Pre Stenosis: 30 Pre KEKE Flow: twilson 04:53 PM Lesion found in Mid RCA. Pre Stenosis: 30 Pre KEKE Flow: twilson 04:53 PM Lesion found in Distal RCA. Pre Stenosis: 40 Pre KEKE Flow: twilson 04:54 PM Lesion found in LMCA. Pre Stenosis: 25 Pre KEKE Flow: twilson 04:54 PM Left Main Coronary Artery with 25% stenosis twilson 04:54 PM Right Coronary, Right Posterior Descending Arteries with Right Posterolateral and Acute Marginal branches with 40 % stenosis. If graft is supplying this area, 0 % stenosis twilson 04:54 PM Lesion found in Ramus. Pre Stenosis: 25 Pre KEKE Flow: twilson 04:54 PM Ramus with 25% stenosis. If graft is supplying this area, 0 % stenosis twilson 04:54 PM Lesion found in Proximal LAD. Pre Stenosis: 30 Pre KEKE Flow: twilson 04:54 PM Proximal Left Anterior Descending Coronary Artery with 30% stenosis. If graft is supplying this territory, 0 % stenosis. twilson 04:56 PM Mid/Distal Left Anterior Descending Coronary Artery and diagonal branches with 90% stenosis. If graft is supplying this area, 0 % stenosis twilson 04:56 PM Lesion found in Proximal Circumflex. Pre Stenosis: 30 Pre KEKE Flow: twilson 04:56 PM Lesion found in 1st Marginal. Pre Stenosis: 40 Pre KEKE Flow: twilson 04:57 PM Circumflex, Obtuse Marginal, Left Posterior Descending, and Left Posterolateral Coronary Arteries with 40 % stenosis. If graft is supplying this area, 0 % stenosis twilson 04:57 PM Lesion found in Right PDA. Pre Stenosis: 30 Pre KEKE Flow: twilson 04:57 PM Waiting on 2N bed. twilson 05:07 PM Report given to Enmanuel MARQUEZ Pt taken to 2N Room #2. 17:06 twilson 05:07 PM Patient out of room: .17:07 twilson Complications Complication None Hemodynamics Pressures Site Systolic/A Wave Diastolic/V Wave Mean AO 145 80 105 AO 125 76 98 AO 127 68 94 Post Procedure Information Blood Pressure: 129/78 mmHg Post procedural instructions were given Closure Device Time Device Success/Fail 07/21/2016 4:42:00 PM MynxGrip Successful Site Checks Time Location Status Staff Sheath In? Note 04:45 PM Rt Groin No bleeding/hematoma Allison Rosenthal RT Pulses Time Site Pre-Procedure Post-Procedure Note 07/21/2016 4:08:00 PM Bilateral DP \\T\\ PT 2+ 07/21/2016 4:08:00 PM Bilateral radial 2+ 4:45:00 PM Bilateral DP \\T\\ PT 2+ 4:45:00 PM Bilateral radial 2+ Updated by Lara Grimes RT (R) on 07/21/2016 5:09:32 PM Lara Grimes RT electronically signed on 07/21/2016 5:10:08 PM with status of Final
--- NOTE | 2016-07-21 17:25 | Invasive Diagnostic Lab ---
Name: Timothy Capellan Date of Study: 07/21/2016 Date: 1955 Ht: 167.6 cm /66.0 in Medical Record#: [id number] Age: 61 Wt: 81.1 kg / 178.79 lb Account/Order#: [id number] Gender: Male BSA: 1.91 Order #: [id number] Fluoro Dose: 520 mGy BMI: 28.87 Procedure Physician: Suzette Felipe MD, [facility] Referring MD: Referring MD: Procedures Performed: CORONARY ANGIOGRAPHY Stent w/ PTCA Single Major Vessel Indications: Non-Stemi Impressions: Single vessel coronary artery disease. Patient had successful PTCA/Drug-Eluting Stent placement in the mid LAD. Recommendations: Dual antiplatelet therapy. Optimal medical therapy of patient's disease. Aggressive risk factor modification. History/Risk Factors: aortic valve replacement aortic dissection Procedure Access obtained in the right Femoral artery by percutaneous puncture Patient had successful PTCA/Drug-Eluting Stent placement in the mid LAD. Complications: None Contrast: Isovue 127ml Closure Device: MynxGrip Hemodynamics: Pressures Site Systolic/ A Wave Diastolic/ V Wave End Diastolic/ Mean HR AO 145 80 105 60 AO 125 76 98 61 AO 127 68 94 66 Coronary Dominance: right Lesion Findings/Interventions * Left Main Coronary Artery There is a 25% stenosis in the LMCA. * Left Anterior Descending There is a 30% stenosis in the Proximal LAD. There is a 20 mm long, 90% stenosis in the Mid LAD. The lesion has a KEKE flow of 3. An intervention was performed on the Mid LAD with a final stenosis of 0%. There were no lesion complications. The final KEKE flow was 3. * Circumflex There is a 30% stenosis in the Proximal Circumflex. There is a 40% stenosis in the 1st Marginal. * Ramus There is a 25% stenosis in the Ramus. * Right Coronary Artery There is a 30% stenosis in the Proximal RCA- calcified. There is a 30% stenosis in the Mid RCA- calcified. There is a 40% stenosis in the Distal RCA. There is a 30% stenosis in the Right PDA. Interventional Device(s) Vessel Segment Type Name Diameter (mm) Length (mm) Mid LAD Balloon Mini Trek Rx 2 15 Mid LAD Drug Eluting Stent Synergy 2.5 20 Updated by Suzette Felipe MD, FACC on 07/21/2016 5:19:45 PM Suzette Felipe MD, FACC electronically signed on 07/21/2016 5:20:35 PM with status of Final
[2016-07-21] MEDS ORDERED: *HR* Warfarin 7.5 MG TABLET PO SCH (18:00)
[2016-07-21] MEDS ORDERED: *HR* Warfarin 5 MG TABLET PO ONE (18:00)
[2016-07-21] MEDS ORDERED: 0.9 % Sodium Chloride 1,000 ML IVC ONE (18:41)
[2016-07-21] MEDS: Heparin 25,000 UNIT/500 ML D5W 25,000 UNIT/500 ML MLS IVC SCH (21:32)
[2016-07-22 03:09] LABS: Basophils % 0.3 %; Eosinophils # 0.1 K/mcL (0.0-0.6); Eosinophils % 0.6 %; Hematocrit 40.4 % (37.5-50.1); Hemoglobin 13.8 g/dL (12.9-16.9); Immature Granulocytes % 0.3 % (0-4); Lymphocytes # 2.1 K/mcL (0.6-4.6); Lymphocytes % 22.9 %; Mean Corpuscular HGB Conc 34.2 g/dL (31.6-35.5); Mean Corpuscular Hemoglobin 29.9 pg (28.0-33.3); Mean Corpuscular Volume 87.4 fL (83.0-100.0); Mean Platelet Volume 11.6 fL (9.4-12.4); Monocytes # 0.7 K/mcL (0.0-1.3); Monocytes % 7.8 %; Neutrophils # 6.1 K/mcL (1.6-8.9); Platelet Count 154 K/mcL (140-400); Red Blood Count 4.62 M/mcL (4.19-5.50); Red Cell Distribution Width 12.7 % (11.5-14.5); Segmented Neutrophils % 68.1 %
[2016-07-22 03:17] LABS: INR 1.5; Prothrombin Time 16.1 Seconds (9.4-12.1)
[2016-07-22 03:26] LABS: Alanine Aminotransferase 28 Units/L (0-55); Albumin 3.1 g/dL (3.5-5.0); Alkaline Phosphatase 117 Units/L (38-126); Aspartate Amino Transferase 21 Units/L (5-34); BUN/Creatinine Ratio 23 (6-26); Bilirubin,Total 1.3 mg/dL (0.2-1.2); Blood Urea Nitrogen 19 mg/dL (8-26); Calcium 8.9 mg/dL (8.6-10.8); Carbon Dioxide 26 mEq/L (19-29); Chloride 105 mEq/L (98-109); Glucose 119 mg/dL (70-99); Osmolality,Calculated 285 (280-300); Potassium 4.1 mEq/L (3.5-4.5); Sodium 136 mEq/L (136-145); Total Protein 6.1 g/dL (6.0-8.3); eGFR For African Americans > 60 (> 60); eGFR For Non-African Americans > 60 (> 60)
[2016-07-22] MEDS: Loratadine 10 MG TABLET PO SCH (08:58)
[2016-07-22] MEDS: Fluticasone Propionate Nasal 50 MCG/SPRAY BOTTLE NS SCH (08:58)
[2016-07-22] MEDS: Metoprolol XL (24 HR) Succ 25 MG TAB.ER.24H PO SCH (08:58)
[2016-07-22] MEDS: Aspirin Enteric Coated 81 MG Tablet PO SCH (08:58)
[2016-07-22] MEDS ORDERED: *HR* Enoxaparin 80 MG/0.8 ML SYRINGE SQ SCH (09:00)
--- NOTE | 2016-07-22 09:37 | Cardiology Progress Note ---
Date of Encounter: 07/22/16 Time of Encounter: 09:00 Assessment and Plan (1) NSTEMI (non-ST elevated myocardial infarction) Current Visit: Yes Status: Acute Troponin 0.20, 0.45, 0.26--now downtrending. No recurrent chest pain.EKG with evidence of inferior CO, Q waves noted. TTE 07/18/16: EF 65%, normal wall motion LHC 07/21/16: successful PTCA/EWA to mLAD; otherwise mild, non-obstructive CAD. Recommend uninterrupted DAPT (asa + plavix) for at least 1 year. He is aware of triple therapy and increased bleeding risk. Continue statin. Long discussion regarding betablocker, has been on Toprol 12.5 mg daily--he states betablocker was d/c'ed in the past due to bradycardia and fatigue. Reported vagal episode yesterday evening, was given atropine and responded with IV fluid bolus; 12 hour tele=57 SB, no significant pause, min HR=44 SB. Will hold betablocker for now, can re-evaluate re-starting in the outpatient setting. Post PCI discharge instructions discussed including care of cath site and restrictions. Follow-up with [facility] in 5-7 days, will coordinate appt. (2) H/O mechanical aortic valve replacement Current Visit: Yes Status: Acute Type A aortic dissection in 1984, repair of dissection as well as mechanical Medtronic-Valadez valve replacement. Echo 02/2015 normal functioning valve. Current echo shows possible prosthetic , MG 29, PV 3.77, not severe. No further testing for valve needed at this time. Anticoagulated on Coumadin. Coumadin re-started last night s/p C. INR 1.5-- will start lovenox SC q12h until INR therapeutic, 2-3. Follows with [facility] He would like to be sent home on Lovenox bridging, not stay for heparin gtt. (3) History of aortic dissection Current Visit: Yes Status: Resolved As above, s/p repair in 1984. Chest CT obtained upon admission shows no acute dissection, aortic arch dilated, 4.1 cm. Discussion w patient/family: The assessment and plan as outlined above was discussed with the patient and/or family members who expressed understanding and agreement. All questions were answered. Thank you for involving us in the care of your patient. Please call with any questions. The patient was discussed and reviewed with Dr. Villafuerte, who agrees with plan as stated above. Cardiology will sign-off. Subjective Principal diagnosis: NSTEMI Interval history: Seen and examined earlier this morning. Denies chest pain or discomfort. Has no complaints this morning other than constipation. Post PCI discharge instructions/restrictions discussed. Objective General: Conversant, No Apparent Distress HEENT: Atraumatic, Normocephaly, Mucus Membranes Moist Cardiac: Reg Rate and Rhythm, Normal S1 and S2 Lungs: Normal Breath Sounds, No Wheeze, Rales, Rhonchi Neuro: Alert and responsive, No focal deficits noted Abdomen: Soft Skin: No rashes noted on visualized skin Musculoskeletal: No Chest Wall Tenderness Extremities: No Edema, Normal Pulses Other: Right groin: soft, tender. No hematoma, ecchymosis, or oozing noted at site. +2 DP/PT pulses bilaterally. Results 07/22/16 02:44 07/22/16 02:44 Lab Results 07/21/16 07/22/16 07/22/16 14:03 02:44 02:44 WBC 9.0 Hgb 13.8 Hct 40.4 Plt Count 154 INR 1.5 APTT 104.3 H Sodium Potassium Chloride Carbon Dioxide BUN Creatinine Glucose Calcium Total Bilirubin AST ALT Alkaline Phosphatase 07/22/16 02:44 WBC Hgb Hct Plt Count INR APTT Sodium 136 Potassium 4.1 Chloride 105 Carbon Dioxide 26 BUN 19 Creatinine 0.83 Glucose 119 H Calcium 8.9 Total Bilirubin 1.3 H AST 21 ALT 28 Alkaline Phosphatase 117 Active Medications Aspirin (Aspirin Ec) 81 mg PO DAILY [facility] Stop: 01/17/17 14:46 Last Admin: 07/22/16 08:58 Dose: 81 mg Atorvastatin Calcium (Lipitor) 80 mg PO HS BRIAN Stop: 01/20/17 21:01 Last Admin: 07/21/16 21:11 Dose: 80 mg Clopidogrel Bisulfate (Plavix) 75 mg PO DAILY BRIAN Stop: 01/21/17 09:01 Last Admin: 07/22/16 08:58 Dose: 75 mg Enoxaparin Sodium (Lovenox) 80 mg SQ Q12HCO BRIAN PRN Reason: Protocol Stop: 01/21/17 09:01 Last Admin: 07/22/16 09:17 Dose: 80 mg Fluticasone Propionate (Flonase) 50 mcg NS BID [facility] PRN Reason: Protocol Stop: 01/18/17 09:31 Last Admin: 07/22/16 08:58 Dose: Not Given Lisinopril (Zestril) 2.5 mg PO DAILY [facility] PRN Reason: Protocol Stop: 01/21/17 09:01 Last Admin: 07/22/16 08:57 Dose: 2.5 mg Loratadine (Claritin) 10 mg PO DAILY [facility] PRN Reason: Protocol Stop: 01/18/17 09:31 Last Admin: 07/22/16 08:58 Dose: 10 mg Naloxone HCl (Narcan) 0.4 mg IVP Q2MIN PRN PRN Reason: Opioid Reversal Stop: 01/17/17 15:01 Nitroglycerin (Nitroglycerin) 0.4 mg SL Q5MIN PRN PRN Reason: Chest Pain Stop: 01/20/17 17:08 Omeprazole (Prilosec) 20 mg PO DAILY@0730 [facility] PRN Reason: Protocol Stop: 01/19/17 07:31 Last Admin: 07/22/16 06:46 Dose: 20 mg Polyethylene Glycol (Miralax) 17 gm PO DAILY PRN PRN Reason: Constipation Stop: 01/20/17 21:01 Last Admin: 07/21/16 21:34 Dose: 17 gm Warfarin Sodium (Coumadin) 7.5 mg PO DAILY@1800 [facility] Stop: 01/20/17 18:01 Last Admin: 07/21/16 21:10 Dose: 7.5 mg - Imaging and Cardiology Echo: report reviewed Cardiac cath: report reviewed Other Results: 12 hour tele: avg HR=57 SB. No significant pause or event noted. - EKG Interpretation EKG results cardiology: personally reviewed Consult Discharge Plan - Plan Referrals: Benedicto Workman DO [Primary Care Provider] - 07/29/16 9:30 am
--- NOTE | 2016-07-22 10:05 | Discharge Summary ---
Date of Encounter: 07/22/16 Time of Encounter: 10:02 - Discharge Diagnosis (1) NSTEMI (non-ST elevated myocardial infarction) Priority: Primary Status: Acute (2) H/O mechanical aortic valve replacement Priority: Secondary Status: Acute (3) History of aortic dissection Priority: Secondary Status: Resolved (4) Left upper limb pain Priority: Secondary Status: Resolved - Discharge Medications Prescriptions: Aspirin Enteric Coated [Aspirin EC] 81 mg PO DAILY #30 tablet. Atorvastatin [Lipitor] 80 mg PO HS #30 tablet Clopidogrel [Plavix] 75 mg PO DAILY #30 tablet Home Medications: Celecoxib [Celebrex] 200 mg PO DAILY 07/18/16 [History] Esomeprazole Magnesium [Nexium] 20 mg PO DAILY 07/18/16 [History] Fluticasone Propionate Nasal [Flonase] 1 spray NS BID 07/18/16 [History] Furosemide [Lasix] 40 mg PO DAILY PRN 07/18/16 [History] Loratadine [Allergy Relief] 10 mg PO DAILY 07/18/16 [History] Nitroglycerin [Nitrostat] 0.4 mg SL AD PRN 07/18/16 [History] Potassium Chloride [Klor-Con 10] 10 meq PO DAILY PRN 07/18/16 [History] Warfarin [Coumadin] 5 mg PO 6XW 07/18/16 [History] Warfarin [Coumadin] 5 mg PO FR 07/18/16 [History] Aspirin Enteric Coated [Aspirin EC] 81 mg PO DAILY #30 tablet. 07/22/16 [Rx] Atorvastatin [Lipitor] 80 mg PO HS #30 tablet 07/22/16 [Rx] Clopidogrel [Plavix] 75 mg PO DAILY #30 tablet 07/22/16 [Rx] Enoxaparin [Lovenox] 80 mg SQ Q12HCO syringe 07/22/16 [Rx] Allergies/Adverse Reactions: Allergies acetaminophen [From Percocet] Allergy (Verified 07/18/16 12:57) Itching morphine Allergy (Verified 07/18/16 12:57) Itching Oxycodone [From Percocet] Allergy (Verified 07/18/16 12:57) Itching Procedures/tests Complete & Pending: Procedures Performed prior 72 hours Category Date Time Status CL Cardiac Catheterization [CL] Routine Message Clerk 07/21/16 11:11 Completed ECG 12 lead ECG [ECG] Routine Y 07/21/16 19:11 Completed Date of admission: 07/18/16 15:00 Primary care physician: Benedicto Workman, Consults: 07/18/16 15:28 Consult to Cardiac Rehabilitation-Phase1 [CONS] Routine Comment: Reason for Consult: NSTEMI Call Completed: No Discharging clinician: David Matamoros Anticipated date of discharge: 07/22/16 - Patient Status Disposition: Home, Self-Care Condition: Good Functional capacity at discharge: independent ambulation Overall status at discharge: patient is progressing back to baseline - Discharge Instructions Instructions: Myocardial Infarction (DC) Follow Up With: Benedicto Workman DO [Primary Care Provider] - 07/29/16 9:30 am Additional Instructions: Follow-up with cardiology in 1 week - Diet and Activity Activity: as per the cardiac rehab Diet: low fat, low cholesterol, low salt diet Hospital course: Mr. Capellan is a 61 year old male patient with history of prior to aortic valve replacement, aortic dissection presented to the ER with complaints of chest pain and left upper arm pain. He was found to have an elevated troponin and was started on treatment for non-ST elevation AZ. He did not have any acute ST segment changes on EKG. Cardiology was consulted and patient underwent cardiac catheterization yesterday and underwent placement of drug-eluting stent to mid LAD. Patient has normal ejection fraction of 65% with normal wall motion. He has not been cleared for discharge by cardiology and will follow up with his primary care provider and cardiology/cardiac rehabilitation in one week. Currently his INR is subtherapeutic as his Coumadin was held while and he was bridged with heparin. He will be discharged on Lovenox to bridge his Coumadin use. Target INR of 2.5-3.5 due to mechanical aortic valve. Patient is going to be at high risk for bleeding due to triple therapy for anticoagulation has used be on dual antiplatelet therapy for his drug-eluting stent. He understands the risks and will seek care if he develops any bleeding. Currently patient is not being discharged on a beta rosa due to a vasovagal episode yesterday with when his heart rate decreased and he required a troponin. Cardiology will follow on this and make further recommendations as outpatient. - Time Spent with Patient Total time spent providing and/or coordinating discharge services: Greater than 30 minutes (35 min) - Constitutional Vitals: Temp Pulse Resp BP Pulse Ox 97.7 F 54 14 105/74 95 07/22/16 04:00 07/22/16 04:00 07/22/16 04:00 07/22/16 04:00 07/22/16 04:00 General appearance: Present: cooperative, A&O X 3, answers questions appropriately - Neck Neck exam general surgery: Present: supple, trachea midline. Absent: lymphadenopathy - Cardiovascular Cardiovascular exam: Present: RRR, +S1, +S2, systolic murmur. Absent: diastolic murmur, gallop, rubs - GI/Abdominal GI/Abdominal exam: Present: normal bowel sounds, soft, no peritoneal signs. Absent: distended, tenderness - Extremities Exam Extremities exam: Present: warm, radial pulses palpable and symetrical. Absent : calf tenderness, cyanotic, pedal edema - Neurological Exam Neurological exam: Present: alert, oriented X3, no focal deficits. Absent: facial droop, speech deficit - Skin Skin exam: Present: dry, intact - Attending Attestation This document has been at least partially created by [employer] recognition technology by Dr. Matamoros. Errors in grammar, wording or other phrases may exist. If errors are found after the documentation is signed, they will be addressed individually in the addendum section of this document when appropriate.
[2016-07-22 10:22] VITALS: BP 112/70
--- NOTE | 2016-07-22 11:59 | Electrocardiograph Report ---
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
== END 2016-07-22 11:30 | disposition home or self-care (01) | DRG 247 ==
LOC: EMEROO 12:43 → 2NENU 12:43 → SUATTDRO 15:00 → 2NENU 15:30 → 2NNU 07-21 17:21
PROVIDERS: ADMIT Internal Medicine; ATTEND Internal Medicine

== ENCOUNTER 2017-11-18 22:02 | Inpatient (IN) ==
[2017-11-18] MEDS ORDERED: Aspirin 81 MG TAB.CHEW PO ONE (22:16)
[2017-11-18] MEDS ORDERED: Nitroglycerin 0.4 MG TAB.SUBL SL ONE (22:16)
--- NOTE | 2017-11-18 22:23 | Emergency Department Note ---
Disposition Clinical Impression: Hx of coronary artery disease Chest pain Qualifiers: Chest pain type: unspecified Qualified Code(s): R07.9 - Chest pain, unspecified Disposition: Admitted As Inpatient Condition: Good Forms: ED Satisfaction Letter General Adult HPI - General Stated complaint: chest pain Time Seen by Provider: 11/18/17 22:04 Source: patient Mode of arrival: ambulatory Limitations: no limitations Nursing Notes Reviewed: Yes Vital Signs Reviewed: Yes - History of Present Illness HPI Narrative: Patient is a 62-year-old male that presents the emergency department with left arm and chest pain. Patient states that approximate 40 minutes prior to arrival the patient developed left arm pain that progressed to left-sided chest pain. She states that this feels very similar to his previous heart attack. Patient states that he has a stent placed approximately 14 months ago and had a small heart attack at that time. Patient states that he has been taking aspirin and Coumadin. Patient states that his chest pain has improved but described as a constant ache in the left side of his chest. Patient denies any shortness of breath. Patient does state that he was nauseated. Denies any diaphoresis. Patient states that at home his blood pressure was over 190 and felt that he should come in to be evaluated. Patient does state that his pain seems to worse if he gets up and moves. - Related Data Home Medications Medication Instructions Recorded Confirmed Celecoxib [Celebrex] 200 mg PO DAILY 07/18/16 07/18/16 Esomeprazole Magnesium [Nexium] 20 mg PO DAILY 07/18/16 07/18/16 Fluticasone Propionate Nasal 1 spray NS BID 07/18/16 07/18/16 [Flonase] Furosemide [Lasix] 40 mg PO DAILY PRN 07/18/16 07/18/16 Loratadine [Allergy Relief] 10 mg PO DAILY 07/18/16 07/18/16 Nitroglycerin [Nitrostat] 0.4 mg SL AD PRN 07/18/16 07/18/16 Potassium Chloride [Klor-Con 10] 10 meq PO DAILY PRN 07/18/16 07/18/16 Warfarin [Coumadin] 5 mg PO 6XW 07/18/16 07/18/16 Warfarin [Coumadin] 5 mg PO FR 07/18/16 07/18/16 Previous Rx's Medication Instructions Recorded Aspirin Enteric Coated [Aspirin EC] 81 mg PO DAILY #30 tablet. 07/22/16 Atorvastatin [Lipitor] 80 mg PO HS #30 tablet 07/22/16 Clopidogrel [Plavix] 75 mg PO DAILY #30 tablet 07/22/16 Enoxaparin [Lovenox] 80 mg SQ Q12HCO syringe 07/22/16 Allergies Allergy/AdvReac Type Severity Reaction Status Date / Time acetaminophen [From Percocet] Allergy Itching Verified 07/18/16 12:57 morphine Allergy Itching Verified 07/18/16 12:57 Oxycodone [From Percocet] Allergy Itching Verified 07/18/16 12:57 Cardiovascular: Reports: chest pain Respiratory: Denies: dyspnea Gastrointestinal: Reports: nausea Musculoskeletal: Reports: other (Left arm pain) Past Medical History - Past Medical History Medical history: Reports: arthritis, other Surgical history: Reports: other (Open heart surgery for aortic valve replacement and aortic dissection repair) Psychiatric history: Reports: anxiety - Social History Smoking Status: Never smoker Smokeless Tobacco Status: No Alcohol use: Reports: none Drug use: Reports: none Physical Exam - General Limitations: no limitations General appearance: alert, in no apparent distress - Head Head exam: atraumatic, normocephalic - Eye Eye exam: Present: normal appearance, EOMI - Neck Neck exam: Present: normal inspection, full ROM, trachea midline - Respiratory Respiratory exam: Present: normal lung sounds bilaterally. Absent: respiratory distress, wheezes - Cardiovascular Cardiovascular exam: Present: regular rate, normal rhythm, normal heart sounds, +S1, +S2 - Abdominal Exam Abdominal exam: Present: soft, Non-Tender, normal bowel sounds - Neurological Exam Neurological exam: Present: alert, oriented X3 - Psychiatric Psychiatric exam: Present: normal affect, normal mood - Skin Skin exam: Present: warm, dry, intact Course Vital Signs Temperature 98.4 F 11/18/17 22:16 Pulse Rate 71 11/18/17 22:16 Respiratory Rate 17 11/18/17 22:16 Blood Pressure 144/97 11/18/17 22:16 O2 Sat by Pulse Oximetry 99 11/18/17 22:16 Temperature 98.4 F 11/18/17 22:16 Pulse Rate 64 11/18/17 23:21 Respiratory Rate 17 11/18/17 23:21 Blood Pressure 160/88 11/18/17 23:21 O2 Sat by Pulse Oximetry 94 11/18/17 23:21 Oxygen Delivery Oxygen Delivery Room Air Medical Decision Making - MDM Narrative Medical decision making narrative: Due to the patient presenting with left-sided chest pain radiating into his arm with a strong cardiac history and stent placement approximate 14 months ago there is significant concern for possible cardiac involvement. We will obtain basic laboratory tests including CBC, BMP, troponin chest x-ray and EKG. Due to the patient's extensive cardiac history and his present symptoms the patient will likely need admission to the hospital for further evaluation and management workup of his cardiac symptoms. I feel it is reasonable for the patient be admitted for further evaluation of possible cardiology consult and cardiac workup. The patient did have a recent long trip to [place] however he states that he stopped every 2 hours and got out of the vehicle. Patient denies any history of blood clots, hemoptysis, surgery, trauma or any unilateral leg swelling. Patient has an elevated troponin of 0.04. There are no new ischemic changes on CT but due to the patient's history and lab report finds a feel that is appropriate for the patient be admitted to the hospital for further evaluation and management. I called and spoke with the admitting hospitalist Dr. Salcedo and he will accept the patient to their service. Patient be admitted to the hospital this time. - Lab Data Result diagrams: 11/18/17 22:10 11/18/17 22:10 Lab Results 11/18/17 11/18/17 11/18/17 Range/Units 22:10 22:10 22:10 WBC 10.9 (4.3-11.1) K/mcL RBC 5.59 H (4.19-5.50) M/mcL Hgb 16.9 (12.9-16.9) g/dL Hct 48.8 (37.5-50.1) % MCV 87.3 (83.0-100.0) fL MCH 30.2 (28.0-33.3) pg MCHC 34.6 (31.6-35.5) g/dL RDW 12.2 (11.5-14.5) % Plt Count 200 (140-400) K/mcL MPV 11.9 (9.4-12.4) fL Immature Gran % 0.3 (0-4) % Seg Neutrophils % 43.6 % Lymphocytes % 44.7 % Monocytes % 9.1 % Eosinophils % 1.7 % Basophils % 0.6 % Neutrophils # 4.8 (1.6-8.9) K/mcL Lymphocytes # 4.9 H (0.6-4.6) K/mcL Monocytes # 1.0 (0.0-1.3) K/mcL Eosinophils # 0.2 (0.0-0.6) K/mcL Basophils # 0.1 (0.0-0.2) K/mcL PT 32.4 H (9.4-12.1) Seconds INR 2.9 Sodium 136 (136-145) mEq/L Potassium 4.0 (3.5-5.1) mEq/L Chloride 99 (98-107) mEq/L Carbon Dioxide 27 (23-29) mEq/L BUN 17 (8-23) mg/dL Creatinine 1.03 (0.70-1.30) mg/dL Est GFR ( Amer) > 60 (> 60) Est GFR (Non-Af Amer) > 60 (> 60) BUN/Creatinine Ratio 17 (6-26) Glucose 135 H (70-105) mg/dL Calculated Osmolality 286 (280-300) Calcium 9.7 (8.6-10.3) mg/dL Troponin I 0.04 H* (< 0.04) ng/mL - Radiology Data Radiology results reviewed: Yes I reviewed the patient's radiology results. Chest X-Ray 11/18/17 22:16 IMPRESSION: Clear lungs. Prominent aortic knob shadow. D/ / Pedro Pablo Baum MD / Pedro Pablo Baum MD Interpreting Provider: Pedro Pablo Baum MD - EKG Data EKG #1 EKG attestation: Yes I reviewed and interpreted this EKG. EKG results narrative: EKG shows a sinus rhythm and rate of 70 beats minute, KY interval 172, curious duration 122, QTC of 437 with a normal axis. There is evidence of ST elevation in leads 3 and aVF. However when compared to previous EKG on 07/21/16 these elevations in lead 3 and aVF were present at that time. EKG is relatively unchanged from previous. There is also inverted T waves and mild depression in aVL on today's EKG and was present on previous EKG.
[2017-11-18 22:40] LABS: Basophils # 0.1 K/mcL (0.0-0.2); Basophils % 0.6 %; Eosinophils # 0.2 K/mcL (0.0-0.6); Eosinophils % 1.7 %; Hematocrit 48.8 % (37.5-50.1); Hemoglobin 16.9 g/dL (12.9-16.9); Immature Granulocytes % 0.3 % (0-4); Lymphocytes # 4.9 K/mcL (0.6-4.6); Lymphocytes % 44.7 %; Mean Corpuscular HGB Conc 34.6 g/dL (31.6-35.5); Mean Corpuscular Hemoglobin 30.2 pg (28.0-33.3); Mean Corpuscular Volume 87.3 fL (83.0-100.0); Mean Platelet Volume 11.9 fL (9.4-12.4); Monocytes % 9.1 %; Neutrophils # 4.8 K/mcL (1.6-8.9); Platelet Count 200 K/mcL (140-400); Red Blood Count 5.59 M/mcL (4.19-5.50); Red Cell Distribution Width 12.2 % (11.5-14.5); Segmented Neutrophils % 43.6 %
[2017-11-18 22:45] LABS: INR 2.9; Prothrombin Time 32.4 Seconds (9.4-12.1)
--- NOTE | 2017-11-18 22:46 | Emergency Department Note ---
Disposition Clinical Impression: Hx of coronary artery disease Chest pain Qualifiers: Chest pain type: unspecified Qualified Code(s): R07.9 - Chest pain, unspecified Disposition: Admitted As Inpatient Condition: Good General Adult HPI - General Chief complaint: ED Chest Pain Stated complaint: chest pain Time Seen by Provider: 11/18/17 22:04 Source: patient Mode of arrival: ambulatory Limitations: no limitations - History of Present Illness Pain Scale: 3 - Related Data Home Medications Medication Instructions Recorded Confirmed Celecoxib [Celebrex] 200 mg PO DAILY 07/18/16 07/18/16 Esomeprazole Magnesium [Nexium] 20 mg PO DAILY 07/18/16 07/18/16 Fluticasone Propionate Nasal 1 spray NS BID 07/18/16 07/18/16 [Flonase] Furosemide [Lasix] 40 mg PO DAILY PRN 07/18/16 07/18/16 Loratadine [Allergy Relief] 10 mg PO DAILY 07/18/16 07/18/16 Nitroglycerin [Nitrostat] 0.4 mg SL AD PRN 07/18/16 07/18/16 Potassium Chloride [Klor-Con 10] 10 meq PO DAILY PRN 07/18/16 07/18/16 Warfarin [Coumadin] 5 mg PO 6XW 07/18/16 07/18/16 Warfarin [Coumadin] 5 mg PO FR 07/18/16 07/18/16 Previous Rx's Medication Instructions Recorded Aspirin Enteric Coated [Aspirin EC] 81 mg PO DAILY #30 tablet. 07/22/16 Atorvastatin [Lipitor] 80 mg PO HS #30 tablet 07/22/16 Clopidogrel [Plavix] 75 mg PO DAILY #30 tablet 07/22/16 Enoxaparin [Lovenox] 80 mg SQ Q12HCO syringe 07/22/16 Allergies Allergy/AdvReac Type Severity Reaction Status Date / Time acetaminophen [From Percocet] Allergy Itching Verified 07/18/16 12:57 morphine Allergy Itching Verified 07/18/16 12:57 Oxycodone [From Percocet] Allergy Itching Verified 07/18/16 12:57 Cardiovascular: Reports: chest pain Respiratory: Denies: dyspnea Gastrointestinal: Reports: nausea Musculoskeletal: Reports: other (Left arm pain) Past Medical History - Past Medical History Medical history: Reports: arthritis, other Surgical history: Reports: other (Open heart surgery for aortic valve replacement and aortic dissection repair) Psychiatric history: Reports: anxiety - Social History Smoking Status: Never smoker Smokeless Tobacco Status: No Alcohol use: Reports: none Drug use: Reports: none Physical Exam - General Limitations: no limitations General appearance: alert, in no apparent distress Course Vital Signs Temperature 98.4 F 11/18/17 22:16 Pulse Rate 71 11/18/17 22:16 Respiratory Rate 17 11/18/17 22:16 Blood Pressure 144/97 11/18/17 22:16 O2 Sat by Pulse Oximetry 99 11/18/17 22:16 Temperature 98.4 F 11/18/17 22:16 Pulse Rate 69 11/18/17 22:30 Respiratory Rate 20 11/18/17 22:30 Blood Pressure 166/86 11/18/17 22:30 O2 Sat by Pulse Oximetry 97 11/18/17 22:30 Oxygen Delivery Oxygen Delivery Room Air Medical Decision Making - Lab Data Result diagrams: 11/18/17 22:10 Lab Results 11/18/17 Range/Units 22:10 WBC 10.9 (4.3-11.1) K/mcL RBC 5.59 H (4.19-5.50) M/mcL Hgb 16.9 (12.9-16.9) g/dL Hct 48.8 (37.5-50.1) % MCV 87.3 (83.0-100.0) fL MCH 30.2 (28.0-33.3) pg MCHC 34.6 (31.6-35.5) g/dL RDW 12.2 (11.5-14.5) % Plt Count 200 (140-400) K/mcL MPV 11.9 (9.4-12.4) fL Immature Gran % 0.3 (0-4) % Seg Neutrophils % 43.6 % Lymphocytes % 44.7 % Monocytes % 9.1 % Eosinophils % 1.7 % Basophils % 0.6 % Neutrophils # 4.8 (1.6-8.9) K/mcL Lymphocytes # 4.9 H (0.6-4.6) K/mcL Monocytes # 1.0 (0.0-1.3) K/mcL Eosinophils # 0.2 (0.0-0.6) K/mcL Basophils # 0.1 (0.0-0.2) K/mcL Attestation Statement - Attestation Attestation: I examined this patient and my medical decision-making was reviewed with the Resident Physician. I agree with the documented findings, disposition and treatment plan as described except to the extent set forth below. Chest pain replicating his prior IN. Had a negative stress test 3 or 4 months ago. Now pain-free after nitroglycerin. EKG shows inferior Q waves and ST elevation that is persistent compared to prior EKG, unchanged. He traveled to [place] recently, but stopped religiously every 2 hours and got out and walked around. No recent trauma or surgery. No prior history of DVT or PE. No history of cancer. No lower extremity pain or swelling, normal lower extremity exam. There is no pleuritic component to the pain. No signs of right heart strain on EKG. I have 0 suspicion for pulmonary embolism, and will not pursue this diagnostic pathway.
[2017-11-18 23:00] LABS: BUN/Creatinine Ratio 17 (6-26); Blood Urea Nitrogen 17 mg/dL (8-23); Calcium 9.7 mg/dL (8.6-10.3); Carbon Dioxide 27 mEq/L (23-29); Chloride 99 mEq/L (98-107); Glucose 135 mg/dL (70-105); Osmolality,Calculated 286 (280-300); Sodium 136 mEq/L (136-145); Troponin I 0.04 ng/mL (< 0.04); eGFR For Non-African Americans > 60 (> 60)
[2017-11-18] MEDS ORDERED: Nitroglycerin 0.4 MG TAB.SUBL SL PRN (23:20)
[2017-11-19 07:08] LABS: Hematocrit 45.5 % (37.5-50.1); Hemoglobin 15.8 g/dL (12.9-16.9); Mean Corpuscular HGB Conc 34.7 g/dL (31.6-35.5); Mean Corpuscular Hemoglobin 30.4 pg (28.0-33.3); Mean Corpuscular Volume 87.7 fL (83.0-100.0); Mean Platelet Volume 11.8 fL (9.4-12.4); Platelet Count 163 K/mcL (140-400); Red Blood Count 5.19 M/mcL (4.19-5.50); Red Cell Distribution Width 12.2 % (11.5-14.5)
[2017-11-19 07:29] LABS: BUN/Creatinine Ratio 21 (6-26); Blood Urea Nitrogen 16 mg/dL (8-23); Calcium 9.4 mg/dL (8.6-10.3); Carbon Dioxide 27 mEq/L (23-29); Chloride 105 mEq/L (98-107); Glucose 113 mg/dL (70-105); Osmolality,Calculated 290 (280-300); Potassium 3.8 mEq/L (3.5-5.1); Sodium 139 mEq/L (136-145); eGFR For Non-African Americans > 60 (> 60)
[2017-11-19 07:34] LABS: Troponin I 2.33 ng/mL (< 0.04)
[2017-11-19] MEDS ORDERED: Acetaminophen 325 MG TABLET PO PRN (08:16)
[2017-11-19] MEDS ORDERED: Naloxone 0.4 MG/ML INJ IVP PRN (08:16)
[2017-11-19] MEDS ORDERED: Loratadine 10 MG TABLET PO PRN (08:21)
[2017-11-19] MEDS ORDERED: Furosemide 40 MG TABLET PO PRN (08:21)
[2017-11-19] MEDS ORDERED: POTASSIUM CHLORIDE 10 MEQ/100 ML IVPB PRN (08:21)
[2017-11-19] MEDS ORDERED: 0.9 % Sodium Chloride 1,000 ML ONE ×2 (08:39→09:10)
[2017-11-19] MEDS ORDERED: *HR* FentaNYL (PF) 100 MCG/2 ML VIAL ONE (08:51)
[2017-11-19] MEDS ORDERED: *HR* Midazolam HCl 2 MG/2 ML VIAL ONE ×2 (08:51→09:18)
[2017-11-19] MEDS ORDERED: *HR* Atropine Sulfate 1 MG/10 ML SYRINGE ONE (08:55)
--- NOTE | 2017-11-19 08:56 | Cardiology History & Physical ---
<Amish Singleton - Last Filed: 11/19/17 11:26> Date of Encounter: 11/19/17 Time of Encounter: 08:49 Assessment and Plan (1) ST elevation myocardial infarction (STEMI) of inferior wall Current Visit: Yes Status: Acute The assessment and plan as outlined above was discussed with the patient and/or family members who expressed understanding and agreement. All questions were answered. EKG with ST elevation in the inferior leads and recipricol changes. Noted to be more prominent than last EKG completed in office. Troponin 2.33. He continues to have pain. Emergent LHC recommended . R/B/A reviewed and he agrees to proceed. On heparin gtt and loading with plavix. (2) H/O mechanical aortic valve replacement Current Visit: No Status: Acute H/o mechanical aortic valve rep over 30 yrs ago. On coumadin. INR goal 2.0-3.0. (3) Hx of coronary artery disease Current Visit: Yes Status: Acute The assessment and plan as outlined above was discussed with the patient and/or family members who expressed understanding and agreement. All questions were answered. H/o AZ and PCI to LAD in 2017. On asa, statin, and bb. History of Present Illness Chief complaint: chest pain and left arm pain since 9:00 pm HPI: Mr. Capellan is a 62 year old male with history of AZ and PCI to the LAD 06/2016, mechanical aortic valve on coumadin, type A aortic dissection s/p repair. He presents to the hospital with c/o chest burning and left arm pain. Symptoms started at rest and were intermittent through the night. He presented to the ED and initial troponin was 0.04, repeat troponin was 2.33. He developed recurrent chest pain this morning and re-peat EKG showed ST elevation in the inferior leads with recipricol changes. Cardiology called stat for STEMI. He continues to have chest pain at this time and appears diaphoretic. labor relations worker now at bedside to take patient to photo lab specialist. Indications, benefits, and risks discussed. He agrees to proceed. Past Med Surg Social Fam HX - Past Medical History Medical history: arthritis, coronary artery disease, myocardial infarction, valvular heart disease, other Additional medical history: aortic stenosis, diverticulosis Psychiatric history: anxiety - Past Surgical History Surgical History: appendectomy, heart valve replacement, herniorrhaphy, other Additional surgical history: bilat knee scopes - Social History Smoking Status: Never smoker Smokeless Tobacco Status: No Alcohol use: none Drug use: none - Family History Mother Living Status: Hx Family Cardiac Disorders: Yes Brother Living Status: Hx Family Cardiac Disorders: Yes Medications and Allergies Celecoxib [Celebrex] 200 mg PO DAILY 07/18/16 [History] Fluticasone Propionate Nasal [Flonase] 2 spray NS BID 07/18/16 [History] Furosemide [Lasix] 40 mg PO DAILY PRN 07/18/16 [History] Loratadine [Allergy Relief] 10 mg PO DAILY PRN 07/18/16 [History] Potassium Chloride [Klor-Con 10] 10 meq PO DAILY PRN 07/18/16 [History] Warfarin [Coumadin] 5 mg PO SUTUTHSA 07/18/16 [History] Warfarin [Coumadin] 7.5 mg PO MOWEFR 07/18/16 [History] Aspirin Enteric Coated [Aspirin EC] 81 mg PO DAILY #30 tablet. 07/22/16 [Rx] Pantoprazole Sodium [Protonix] 40 mg PO DAILY 11/19/17 [History] Pravastatin Sodium [Pravachol] 40 mg PO HS 11/19/17 [History] 3 Allergy/AdvReac Type Severity Reaction Status Date / Time acetaminophen [From Percocet] Allergy Itching Verified 11/19/17 08:40 morphine Allergy Itching Verified 11/19/17 08:40 Oxycodone [From Percocet] Allergy Itching Verified 11/19/17 08:40 All Systems Review: The remainder of the systems were reviewed and are negative Physical Examination Vital Signs, Last 4 Hours Temp Pulse Resp BP Pulse Ox 11/19/17 07:08 97.7 F 102 16 136/71 95 General: Conversant, Other (ill appearing, diaphoretic) HEENT: Atraumatic, Normocephaly, Mucus Membranes Moist Neck: No JVD, Normal carotid pulses Cardiac: Reg Rate and Rhythm, Normal S1 and S2, Other (3/6 systolic murmur noted ) Lungs: Normal Breath Sounds, No Wheeze, Rales, Rhonchi Neuro: Alert and responsive, No focal deficits noted Abdomen: Soft, Non-Tender Skin: No rashes noted on visualized skin Musculoskeletal: No Chest Wall Tenderness Extremities: No Clubbing, No Cyanosis, No Edema, Normal Pulses Results 11/19/17 05:50 11/19/17 05:50 Lab Results 11/19/17 11/19/17 05:50 05:50 WBC 8.9 Hgb 15.8 Hct 45.5 Plt Count 163 Sodium 139 Potassium 3.8 Chloride 105 Carbon Dioxide 27 BUN 16 Creatinine 0.77 Glucose 113 H Calcium 9.4 Troponin I 2.33 H* - Imaging and Cardiology Echo: report reviewed Cardiac cath: report reviewed - EKG Interpretation EKG results cardiology: personally reviewed <Rochelle Alvarez - Last Filed: 11/19/17 14:14> Date of Encounter: 11/19/17 - Attending Attestation I have personally performed a face to face evaluation on this patient. I have reviewed and agree with the care plan. History and Exam by me shows: 62 YOM with h/o CAD PCI of the mid LAD x 1 year ago presents with Inferior ST elevations. R/B/A d/w patient in regards to urgent LHC and he agrees to proceed. History of Present Illness HPI: Mr. Capellan is a 62 year old male All Systems Review: The remainder of the systems were reviewed and are negative Results 11/19/17 05:50 11/19/17 05:50 Lab Results 11/19/17 11/19/17 05:50 05:50 WBC 8.9 Hgb 15.8 Hct 45.5 Plt Count 163 Sodium 139 Potassium 3.8 Chloride 105 Carbon Dioxide 27 BUN 16 Creatinine 0.77 Glucose 113 H Calcium 9.4 Troponin I 2.33 H*
[2017-11-19] MEDS ORDERED: Aspirin Enteric Coated 81 MG Tablet PO SCH (09:00)
[2017-11-19] MEDS ORDERED: Celecoxib 200 MG CAPSULE PO SCH (09:00)
--- NOTE | 2017-11-19 09:09 | Internal Med History&Physical ---
Date of Encounter: 11/19/17 Time of Encounter: 08:45 Internal Medicine - H&P: HPI Chief complaint: CP Admitted From: Home Plans for Post Hospital Care: Home History of present illness: Mr. Capellan is a 62 year old male past medical hx of OR with stent placement , aortic valve replacement / aortic dissection repair - mechanical aortic valve on coumadin. He presented to the Emergency last night after experiencing a sudden onset of left sided chest pain and left arm pain. Associated sx of SOB- he did have an elevated BP at home . He does admit to recent long distance travel however he states he has been compliant with coumadin and took 2 hour walk breaks. On presentation to the ED his Troponin was 0.04 he did have some elevation on EKG elevation which appear to be present in past EKG He was given ASA and admitted for observation. This AM troponin elevated 2.33, patient was having midsternal "burning" describing as heartburn with occassional L arm pain. He was diaphoretic Obtained EKG which did show elevation in 2,3 AVF- I did review EKG with Dr Melchor- I spoke with DR Oneal who did advise to call STEMI alert. STEMI alert called and I did review case with Amish Singleton and Claudy Chou re recording mixer with cardiology. I updated the patient and his who was at bedside- Patient was taken to industrial laborer Past Med Surg Social Fam HX - Past Medical History Medical history: arthritis, myocardial infarction, other Additional medical history: aortic stenosis, diverticulosis Psychiatric history: anxiety - Past Surgical History Surgical History: appendectomy, heart valve replacement, herniorrhaphy, other Additional surgical history: bilat knee scopes - Social History Smoking Status: Never smoker Smokeless Tobacco Status: No Alcohol use: none Drug use: none - Family History Mother Living Status: Hx Family Cardiac Disorders: Yes Brother Living Status: Hx Family Cardiac Disorders: Yes Internal Medicine - H&P: Meds Celecoxib [Celebrex] 200 mg PO DAILY 07/18/16 [History] Fluticasone Propionate Nasal [Flonase] 2 spray NS BID 07/18/16 [History] Furosemide [Lasix] 40 mg PO DAILY PRN 07/18/16 [History] Loratadine [Allergy Relief] 10 mg PO DAILY PRN 07/18/16 [History] Potassium Chloride [Klor-Con 10] 10 meq PO DAILY PRN 07/18/16 [History] Warfarin [Coumadin] 5 mg PO SUTUTHSA 07/18/16 [History] Warfarin [Coumadin] 7.5 mg PO MOWEFR 07/18/16 [History] Aspirin Enteric Coated [Aspirin EC] 81 mg PO DAILY #30 tablet. 07/22/16 [Rx] Pantoprazole Sodium [Protonix] 40 mg PO DAILY 11/19/17 [History] Pravastatin Sodium [Pravachol] 40 mg PO HS 11/19/17 [History] 3 Allergy/AdvReac Type Severity Reaction Status Date / Time acetaminophen [From Percocet] Allergy Itching Verified 11/19/17 08:40 morphine Allergy Itching Verified 11/19/17 08:40 Oxycodone [From Percocet] Allergy Itching Verified 11/19/17 08:40 All Systems PM: A 10-system review of systems was performed and is negative for pertinent findings except as documented above in the HPI. - Constitutional Constitutional: no chills, no fever(s), no night sweats - EENT Eyes: no change in vision, no discharge, no pain, no photophobia Ears: no ear discharge, no ear pain, no tinnitus Nose, mouth and throat: no dysphagia, no nasal discharge, no neck pain, no sore throat - Cardiovascular Cardiovascular ROS IM: chest pain, no diaphoresis, no dyspnea, no lightheadedness, no palpitations, no syncope - Respiratory Respiratory: no cough, no dyspnea, no wheezing, no excessive phlegm production - Gastrointestinal Gastrointestinal: no abdominal pain, no diarrhea, no hematemesis, no hematochezia, no melena, no nausea, no vomiting - Musculoskeletal Musculoskeletal ROS IM: no numbness, no tingling - Integumentary Integumentary IM: no rash, no unusual bruising - Neurological Neurological ROS: no confusion, no convulsions, no focal weakness, no numbness, no tingling, no tremor(s) - Hematologic/Lymphatic Hematologic/Lymphatic: no easy bruising - Constitutional Vitals: Temp Pulse Resp BP Pulse Ox 97.7 F 102 16 136/71 95 11/19/17 07:08 11/19/17 07:08 11/19/17 07:08 11/19/17 07:08 11/19/17 07:08 General appearance: Present: A&O X 3 Exam: see above - Head Head exam: Present: atraumatic, normocephalic - Eye Eye exam: Present: PERRL, conjuntiva pink, sclera anicteric Pupils: Present: PERRL - Neck Neck exam general surgery: Present: supple, trachea midline. Absent: lymphadenopathy - Respiratory Respiratory exam: Present: CTAB. Absent: accessory muscle use, rales, rhonchi, wheezes - Cardiovascular Cardiovascular exam: Present: RRR, +S1, +S2. Absent: diastolic murmur, gallop, rubs, systolic murmur Additional comments: click noted - GI/Abdominal GI/Abdominal exam: Present: normal bowel sounds, soft, no peritoneal signs. Absent: distended, tenderness - Extremities Exam Extremities exam: Present: warm, radial pulses palpable and symmetrical. Absent : calf tenderness, cyanotic, pedal edema - Neurological Exam Neurological exam: Present: CN II-XII intact, oriented X3, no focal deficits. Absent: pronater drift, facial droop, speech deficit - Skin Skin exam: Present: dry, intact Internal Med - H&P Results - Labs CBC & Chem 7: 11/19/17 05:50 11/19/17 05:50 Labs: Short CBC 11/19/17 Range/Units 05:50 WBC 8.9 (4.3-11.1) K/mcL Hgb 15.8 (12.9-16.9) g/dL Hct 45.5 (37.5-50.1) % Plt Count 163 (140-400) K/mcL BMP 11/19/17 05:50 Sodium 139 Potassium 3.8 Chloride 105 Carbon Dioxide 27 BUN 16 Creatinine 0.77 Glucose 113 H Calcium 9.4 Cardiac Enzymes 11/19/17 Range/Units 05:50 Troponin I 2.33 H* (< 0.04) ng/mL - Assessment and plan (1) STEMI (ST elevation myocardial infarction) Current Visit: Yes Status: Acute Assessment and plan: EKG with ST elevation in inferior leads and recipricol changes, reviewed with attending - Troponin 2.33 elevated from 0.04 had chest burning - diaphoresis - Notified cardiology STEMI alert called and patient taken to industrial laborer Qualifiers: Involved coronary artery: unspecified coronary artery Qualified Code(s): I21.3 - ST elevation (STEMI) myocardial infarction of unspecified site (2) Hx of coronary artery disease Current Visit: Yes Status: Acute Assessment and plan: H/O OR and PCI to LAD in 2017 on ASA statin BB (3) H/O mechanical aortic valve replacement Current Visit: No Status: Acute Assessment and plan: on coumadin INR GOal 2.0-3.0 - Time Spent With Patient Total time spent is greater than 50% in coordination of care (as documented) at patient's floor/unit and/or counseling patient:
[2017-11-19] MEDS ORDERED: *HR* Heparin 10,000 UNIT/10 ML VIAL ONE (09:10)
[2017-11-19] MEDS ORDERED: Heparin 1,000 UNITS/500 mL 500 ML ONE (09:10)
[2017-11-19] MEDS ORDERED: ISOVUE-370 200 ML INFUS..BTL IV ONE ×2 (09:10→09:56)
[2017-11-19] MEDS ORDERED: Nitroglycerin 1,000 MCG/10 ML VIAL IV ONE (09:10)
[2017-11-19] MEDS ORDERED: Tirofiban 12.5 MG/250ML 12.5 MG/250 ML BAG ONE (09:56)
[2017-11-19] MEDS ORDERED: *HR* Ticagrelor 90 MG TABLET ONE (10:01)
[2017-11-19] MEDS ORDERED: Tirofiban 12.5 MG/250ML 12.5 MG/250 ML BAG IVC SCH (10:15)
--- NOTE | 2017-11-19 10:24 | Invasive Diagnostic Lab Proc ---
Name: Timothy Capellan Date of Study: 11/19/2017 Date: 1955 Ht: 66.1in Medical Record#: [id number] Age: 62 Wt: 185.19lb Gender: Male BSA: 1.94 Order #: [id number] BMI: 29.76 Physicians Procedure Physician: Rochelle Alvarez MD Referring MD: Referring MD: Staff Name Position Time In Em Hope RT (R) Monitor 08:51 AM Irina Jackie RT (R) Scrub 08:51 AM Tessa Mariscal RN Behavioral Health Tech 08:51 AM Indications Indication STEMI Procedures Performed Procedure PRQ CARD REVASC RI 1 VSL CORONARY ARTERY ANGIO S&I Pre-Procedure Checklist Informed consent is complete signed and on chart. H&P is on chart. ID band is on and ID verified with patient. Patient NPO for procedure The procedure was described for the patient and questions were answered. ECG is on chart. Plan of Care Patient will tolerate the procedure without complications. Adequate level of comfort will be maintained. Hemodynamics will remain stable Patient will recover from procedure without complications. Respiratory function will be maintained. Cardiac rhythm will remain stable. Patient temperature will be maintained. Patient and/or family have verbalized understanding of the procedure. Patient Education Chief Complaint/Reason for Test: Cardiac Cath Developmental Category: Adult (18-64 years) Developmentally Appropriate for Age: Yes Learning Barriers: None Education Needs: Procedure Education Method: Verbal Information Taught: Cardiac Cath Educational Evaluation: Able to repeat information Intravenous Access Time IV Size Location DC'd Fluid/Drip Rate Units RN 20g 1 /" Patent On Arrival 0.9NaCl mg/hr Allergies Levofloxacin morphine Oxycodone acetaminophen SYNTHETIC MORPHINE Vital Signs Time BP (mmHg) HR (bpm) O2 Sat. RR (bpm) LOC 08:53 AM / % 5 = Fully awake and oriented or at pre-proc level 09:16 AM 145 / 91 89 98 % 14 09:21 AM 157 / 115 89 100 % 14 09:26 AM 154 / 87 84 94 % 9 09:31 AM 148 / 99 72 98 % 19 09:36 AM 153 / 106 72 100 % 21 09:41 AM 143 / 94 69 100 % 22 09:46 AM 152 / 93 75 100 % 22 09:51 AM 134 / 92 83 100 % 20 09:56 AM 136 / 99 67 100 % 18 10:01 AM 129 / 89 79 100 % 19 08:52 AM 148 / 95 76 99 % 10 08:56 AM 146 / 97 78 99 % 16 09:01 AM 148 / 93 84 96 % 17 09:06 AM 120 / 85 82 96 % 21 09:11 AM 131 / 91 91 95 % 16 10:06 AM 134 / 80 82 100 % 22 Procedural Medications Time Medication Dose Units Method Given By 08:53 AM Oxygen 2 L/min nasal cannula Tessa Mariscal RN 08:55 AM Versed 1 mg Intravenous Tessa Mariscal RN 08:58 AM Lidocaine 2% 10 ml Subcutaneous Rochelle Alvarez MD 08:59 AM Versed 0.5 mg Intravenous Tessa Mariscal RN 08:59 AM Benadryl 25 mg Intravenous Tessa Mariscal RN 09:00 AM Lidocaine 2% 10 ml Subcutaneous Rochelle Alvarez MD 09:05 AM Heparin 2000 units Intravenous Tessa Mariscal RN 09:05 AM Aggrastat 12.5mg/250ml 42 ml Intravenous Tessa Mariscal RN 09:05 AM Aggrastat 12.5mg/250ml 15 ml Intravenous Tessa Mariscal RN 09:09 AM Heparin 1000 units Intravenous Tessa Mariscal RN 09:17 AM Versed 1 mg Intravenous Tessa Mariscal RN 09:21 AM Fentanyl 50 mcg Intravenous Haylee Escalante RN 09:31 AM Heparin 1000 units Intravenous Tessa Mariscal RN 10:00 AM Brilinta 180 mg Orally Tessa Mariscal RN ASA Classification: CLASS II- Mild systemic disease (i.e. well-controlled diabetes, hypertension, asthma, cigarette smoking) Aide Score Preprocedure Postprocedure Activity 2- Moves 4 extremities sustained head lift Activity 2- Moves 4 extremities sustained head lift Circulation 2- SBP +/= 20 points of pre-anesthetic level Circulation 2- SBP +/= 20 points of pre-anesthetic level Consciousness 2- Awake and alert oriented x 3 Consciousness 2- Awake and alert oriented x 3 O2 Saturation 2- Able to maintain O2 satruation of 92% on room air O2 Saturation 2- Able to maintain O2 satruation of 92% on room air Respiratory 2- Able to deep breathe and cough well Respiratory 2- Able to deep breathe and cough well Total Score 10 Total Score 10 Contrast Agent: Isovue Diagnostic Contrast: 116 ml Total Contrast: 116 ml Fluoro Dose: 88690 mGy Procedure Log Time Note Enter By 08:49 AM Pt arrived to botany laboratory assistant 2 at 08:49 [email or web address] 08:50 AM CathStat 08:50 AM Vitals capture started with the following parameters, Patient=Adult, Interval=5 min, Initial Crqgxtrr=796 mmHg, Deflation Rate=5 mmHg, Cuff placed on Right Arm 08:51 AM Em Hope RT (R) Position: Monitor Time in: 08:51 [email or web address] 08:51 AM Jackie Arevalo RT (R) Position: Scrub Time in: 08:51 [email or web address] 08:51 AM Tessa Mariscal RN Position: Behavioral Health Tech Time in: 08:51 [email or web address] 08:51 AM Patient charges- Angio tray pack, Navilyst 3mm J, Pulse Oximetry and ACIST tubing and transducer [email or web address] 08:51 AM Case Delayed No [email or web address] 08:51 AM Hair removed from procedure site in holding area using clippers. Bilateral groin prepped with Chloraprep by Jarrod Toney RT (R), then patient was draped. Skin intact. [email or web address] 08:52 AM Recorded ECG: HR=92 Condition=Condition 1 08:52 AM Recorded ECG: HR=80 Condition=Condition 1 08:52 AM HR=76 bpm, GKET=534/95 mmhg, SpO2=99.0 %, Resp=10 B/min 08:53 AM Physician arrived 08:53 [email or web address] 08:53 AM Toy and yosvany completed [email or web address] 08:53 AM ASA Class CLASS II- Mild systemic disease (i.e. well-controlled diabetes, hypertension, asthma, cigarette smoking) [email or web address] 08:53 AM Procedure start 08:53 [email or web address] 08:53 AM Time: 08:53 Oxygen on at 2 L/min per nasal cannula by Tessa Mariscla RN [email or web address] 08:53 AM Time: 08:53 Patient comfortable and pain free: Yes [email or web address] 08:53 AM Time: 08:53LOC: 5 = Fully awake and oriented or at pre-proc level [email or web address] 08:55 AM Pressure channel 1 zeroed. 08:56 AM Time: 08:55 Versed 1 mg Intravenous Given by Tessa Mariscal RN [email or web address] 08:56 AM Pressure channel 1 zeroed. 08:56 AM HR=78 bpm, PVYW=208/97 mmhg, SpO2=99.0 %, Resp=16 B/min 08:57 AM Time out performed according to hospital policy [email or web address] 08:58 AM Time: 08:58 10 ml Lidocaine 2% to right groin Subcutaneous Given by Rochelle Alvarez MD [email or web address] 08:58 AM Micro-Introducer Kit utilized for sheath placement [email or web address] 08:58 AM Pressure channel 1 zeroed. 08:59 AM Time: 08:59 Versed 0.5 mg Intravenous Given by Tessa Mariscal RN [email or web address] 08:59 AM Time: 08:59 Benadryl 25 mg Intravenous Given by Tessa Mariscal RN [email or web address] 09:00 AM Time: 09:00 10 ml Lidocaine 2% to right groin Subcutaneous Given by Rochelle Alvarez MD [email or web address] 09:00 AM Unsuccessful access attempt # 1 into the right Femoral artery. Manual pressure applied to achieve hemostasis.. [email or web address] 09:01 AM Unsuccessful access attempt # 2 into the right Femoral artery. Manual pressure applied to achieve hemostasis.. [email or web address] 09:01 AM HR=84 bpm, ADNS=916/93 mmhg, SpO2=96.0 %, Resp=17 B/min, Comment=NSR 09:02 AM Unsuccessful access attempt # 3 into the right Femoral artery. Manual pressure applied to achieve hemostasis.. [email or web address] 09:03 AM Access obtained by percutaneous puncture. 6Fr 10cm Terumo [place] sheath placed in right Femoral artery. [id number] [email or web address] 09:05 AM 5Fr FL 4 catheter inserted over the wire [facility] [email or web address] 09:05 AM Time: 09:05 Heparin 2000 units Intravenous Given by Tessa Mariscal RN [email or web address] 09:05 AM Time: 09:05 Aggrastat 12.5mg/250ml 42 ml Intravenous Given by Tessa Mariscal RN Taylor pump [email or web address] 09:05 AM Recorded Pressure: Ao, HR=68, Condition=Condition 1 (Aorta) Ao 117/72/91 09:06 AM Time: 09:05 Aggrastat 12.5mg/250ml 15 ml Intravenous Given by Tessa Mariscal RN Taylor pump [email or web address] 09:06 AM LCA angiography performed in multiple views. [email or web address] 09:06 AM Catheter removed [email or web address] 09:06 AM HR=82 bpm, IDIS=830/85 mmhg, SpO2=96.0 %, Resp=21 B/min 09:06 AM 6Fr JR 4 [place] Bright-Tip guide catheter was used to cannulate the PCI vessel successfully. reused? No [email or web address] 09:07 AM RCA angiography performed in multiple views. [email or web address] 09:08 AM .014 [employer] [place] 190cm guide wire across target lesion- successful. reused? No [email or web address] 09:09 AM Lesion found in Distal RCA. Pre Stenosis: 99 Pre KEKE Flow: 3: Complete and Brisk Flow/Perfusion [email or web address] 09:09 AM Inflation device was opened. [email or web address] 09:09 AM 2.0 mm x 12 mm Emerge Monorail balloon across target lesion- successful. reused? No [email or web address] 09:09 AM Recorded Pressure: Ao, HR=83, Condition=Condition 1 (Aorta) Ao 136/86/108 09:09 AM Time: 09:09 Heparin 1000 units Intravenous Given by Tessa Mariscal RN [email or web address] 09:10 AM Balloon inflated @ 6 rosalina for 10 seconds [email or web address] 09:11 AM Balloon inflated @ 6 rosalina for 6 seconds [email or web address] 09:11 AM Balloon catheter removed intact. [email or web address] 09:11 AM HR=91 bpm, ZBWP=250/91 mmhg, SpO2=95.0 %, Resp=16 B/min 09:12 AM 3.0mm x 20mm Synergy drug-eluting stent across target lesion- successful Lot #[id number] [email or web address] 09:15 AM .014 [employer] [place] 190cm guide wire across target lesion- successful. reused? No [email or web address] 09:16 AM HR=89 bpm, XYTX=803/91 mmhg, SpO2=98.0 %, Resp=14 B/min 09:16 AM Recorded ECG: HR=87 Condition=Condition 1 09:18 AM Time: 09:17 Versed 1 mg Intravenous Given by Tessa Mariscal RN [email or web address] 09:20 AM .014 [employer] 50 190cm guide wire across target lesion- successful. reused? No [email or web address] 09:20 AM Guide wire removed intact. [email or web address] 09:21 AM HR=89 bpm, HFVO=254/115 mmhg, DqM0=675.0 %, Resp=14 B/min 09:21 AM Time: 09:21 Fentanyl 50 mcg Intravenous Given by Haylee Escalante RN [email or web address] 09:23 AM Stent delivery system removed intact. [email or web address] 09:24 AM Balloon re-inserted 2.0x12 [email or web address] 09:24 AM Balloon inflated @ 6 rosalina for 11 seconds [email or web address] 09:25 AM Balloon inflated @ 6 rosalina for 6 seconds [email or web address] 09:25 AM Guide wire removed intact. [email or web address] 09:26 AM 3.0mm x 24mm Synergy drug-eluting stent across target lesion- successful Lot #[id number] [email or web address] 09:26 AM HR=84 bpm, HUKN=790/87 mmhg, SpO2=94.0 %, Resp=9 B/min 09:27 AM Recorded Pressure: Ao, HR=84, Condition=Condition 1 (Aorta) Ao 183/117/150 09:27 AM 6Fr Guidezilla advanced [email or web address] 09:30 AM Stent delivery system removed intact. [email or web address] 09:31 AM 2.0 mm x 20 mm Emerge Monorail balloon across target lesion- successful. reused? No [email or web address] 09:31 AM Time: 09:31 Heparin 1000 units Intravenous Given by Tessa Mariscal RN [email or web address] 09:31 AM HR=72 bpm, ENBP=750/99 mmhg, SpO2=98.0 %, Resp=19 B/min 09:32 AM Balloon inflated @ 6 rosalina for 12 seconds [email or web address] 09:33 AM 3.0x24 synergy stent re-inserted. [email or web address] 09:35 AM Stent delivery system removed intact. [email or web address] 09:35 AM Recorded Pressure: Ao, HR=77, Condition=Condition 1 (Aorta) Ao 143/84/109 09:36 AM HR=72 bpm, ABGG=078/106 mmhg, RbI6=559.0 %, Resp=21 B/min 09:38 AM 3.0mm x 23mm Xience Little EWA drug-eluting stent across target lesion- successful Lot #[id number] [email or web address] 09:39 AM Stent delivery system removed intact. [email or web address] 09:39 AM 2.5 mm x 12 mm Emerge Monorail balloon across target lesion- successful. reused? No [email or web address] 09:40 AM Balloon inflated @ 6 rosalina for 7 seconds [email or web address] 09:40 AM Balloon inflated @ 4 rosalina for 6 seconds [email or web address] 09:41 AM Balloon catheter removed intact. [email or web address] 09:41 AM HR=69 bpm, DYSP=745/94 mmhg, UzL6=049.0 %, Resp=22 B/min 09:41 AM 3.0mm x 20mm Synergy drug-eluting stent across target lesion- successful Lot #[id number] [email or web address] 09:44 AM Stent delivery system removed intact. [email or web address] 09:44 AM Recorded Pressure: Ao, HR=83, Condition=Condition 1 (Aorta) Ao 113/70/89 09:45 AM 3.0 mm x 12 mm Emerge Monorail balloon across target lesion- successful. reused? No [email or web address] 09:46 AM Balloon inflated @ 6 rosalina for 10 seconds [email or web address] 09:46 AM HR=75 bpm, XBLV=760/93 mmhg, FsX9=700.0 %, Resp=22 B/min 09:46 AM Balloon inflated @ 6 rosalina for 6 seconds [email or web address] 09:47 AM Balloon inflated @ 9 rosalina for 8 seconds [email or web address] 09:47 AM Balloon inflated @ 9 rosalina for 7 seconds [email or web address] 09:47 AM Balloon inflated @ 10 rosalina for 8 seconds [email or web address] 09:48 AM Balloon catheter removed intact. [email or web address] 09:48 AM 3.cirm99xy synergy re-inserted. [email or web address] 09:50 AM Stent deployed @ 9 rosalina for 10 seconds [email or web address] 09:51 AM Stent balloon reinflated @ 15 rosalina for 9 seconds [email or web address] 09:51 AM Stent delivery system removed intact. [email or web address] 09:51 AM HR=83 bpm, JJRR=017/92 mmhg, BfN9=872.0 %, Resp=20 B/min 09:53 AM Guide wire removed intact. [email or web address] 09:54 AM Guide catheter removed intact. [email or web address] 09:56 AM HR=67 bpm, HCTI=405/99 mmhg, GvY0=893.0 %, Resp=18 B/min 09:57 AM Bolus angiogram of right Femoral complete: 4 ml/sec for a total of 7 mls [email or web address] 09:58 AM Procedure completed at 09:58 11/19/2017 [email or web address] 09:58 AM Coronary Dominance: right [email or web address] 09:58 AM Did you address KEKE flow and Dominance? Yes [email or web address] 09:59 AM Sign out completed: Radiation Dose 2338.86 mGy, 38923 cGy/cm2 Fluoro Time: 22.3 Isovue 370 - 200ml contrast 116 ml given by Rochelle Alvarez MD. Complications: NoneCardiac Rehab Consult needed: YesConfirmed administered medications: Yes [email or web address] 09:59 AM Isovue 370 - 200ml,1 Bottle(s) used. [email or web address] 09:59 AM Arterial sheath pulled, Angio-seal closure device used and was Successful S/N. [email or web address] 09:59 AM Estimated Blood Loss: minimal [email or web address] 10:00 AM Time: 10:00 Brilinta 180 mg Orally Given by Tessa Mariscal RN [email or web address] 10:01 AM HR=79 bpm, WKOA=493/89 mmhg, TqS0=928.0 %, Resp=19 B/min 10:06 AM HR=82 bpm, WHHQ=780/80 mmhg, GdS3=690.0 %, Resp=22 B/min 10:08 AM Family placed in consult room. [email or web address] 10:08 AM Post Blood Pressure 134/92 [email or web address] 10:09 AM 10:08 Post Pulses Bilateral DP & PT 2+ [email or web address] 10:09 AM Education needs Procedure, Plan of Care, and Disease Process [email or web address] 10:09 AM Learning barriers :None [email or web address] 10:09 AM Education Methods Verbal [email or web address] 10:09 AM Education evaluation Able to repeat information [email or web address] 10:09 AM Site status No bleeding/hematoma - Rt Groin as reported by Sites, Jackie RT (R) at 10:09 [email or web address] 10:09 AM Opsite applied [email or web address] 10:09 AM Report given to Barby MARQUEZ Pt taken to Holding room Room #4. 10:09 [email or web address] 10:09 AM Complications: None [email or web address] 10:10 AM Delay to floor Bed availability [email or web address] 10:14 AM Patient out of room: 10:14 [email or web address] Complications Complication None None Hemodynamics Pressures Site Systolic/A Wave Diastolic/V Wave Mean AO 117 72 91 AO 136 86 108 AO 183 117 150 AO 143 84 109 AO 113 70 89 Post Procedure Information Blood Pressure: 134/92 mmHg Post procedural instructions were given Closure Device Time Device Success/Fail 11/19/2017 10:00:00 AM Angio-Seal VIP Successful Site Checks Time Location Status Staff Sheath In? Note 10:09 AM Rt Groin No bleeding/hematoma Sites, Jackie RT (R) Pulses Time Site Pre-Procedure Post-Procedure Note Bilateral DP & PT 2+ Bilateral radial 2+ 10:08:00 AM Bilateral DP & PT 2+ Updated by Em Hope, RT(R) on 11/19/2017 10:15:45 AM electronically signed on 11/19/2017 10:16:14 AM with status of Final
--- NOTE | 2017-11-19 14:10 | Invasive Diagnostic Lab Proc ---
Name: Timothy Capellan Date of Study: 11/19/2017 Date: 1955 Ht: 66.1in Medical Record#: [id number] Age: 62 Wt: 185.19lb Gender: Male BSA: 1.94 Order #: [id number] BMI: 29.76 Physicians Procedure Physician: Rochelle Alvarez MD Referring MD: Referring MD: Staff Name Position Time In Em Hope RT (R) Monitor 08:51 AM Irina Jackie RT (R) Scrub 08:51 AM Tessa Mariscal RN Distribution Accounting Clerk 08:51 AM Indications Indication STEMI Procedures Performed Procedure PRQ CARD REVASC KS 1 VSL CORONARY ARTERY ANGIO S&I Pre-Procedure Checklist Informed consent is complete signed and on chart. H&P is on chart. ID band is on and ID verified with patient. Patient NPO for procedure The procedure was described for the patient and questions were answered. ECG is on chart. Plan of Care Patient will tolerate the procedure without complications. Adequate level of comfort will be maintained. Hemodynamics will remain stable Patient will recover from procedure without complications. Respiratory function will be maintained. Cardiac rhythm will remain stable. Patient temperature will be maintained. Patient and/or family have verbalized understanding of the procedure. Patient Education Chief Complaint/Reason for Test: Cardiac Cath Developmental Category: Adult (18-64 years) Developmentally Appropriate for Age: Yes Learning Barriers: None Education Needs: Procedure Education Method: Verbal Information Taught: Cardiac Cath Educational Evaluation: Able to repeat information Intravenous Access Time IV Size Location DC'd Fluid/Drip Rate Units RN 20g 1 /" Patent On Arrival 0.9NaCl mg/hr Allergies Levofloxacin morphine Oxycodone acetaminophen SYNTHETIC MORPHINE Vital Signs Time BP (mmHg) HR (bpm) O2 Sat. RR (bpm) LOC 08:53 AM / % 5 = Fully awake and oriented or at pre-proc level 09:16 AM 145 / 91 89 98 % 14 09:21 AM 157 / 115 89 100 % 14 09:26 AM 154 / 87 84 94 % 9 09:31 AM 148 / 99 72 98 % 19 09:36 AM 153 / 106 72 100 % 21 09:41 AM 143 / 94 69 100 % 22 09:46 AM 152 / 93 75 100 % 22 09:51 AM 134 / 92 83 100 % 20 09:56 AM 136 / 99 67 100 % 18 10:01 AM 129 / 89 79 100 % 19 08:52 AM 148 / 95 76 99 % 10 08:56 AM 146 / 97 78 99 % 16 09:01 AM 148 / 93 84 96 % 17 09:06 AM 120 / 85 82 96 % 21 09:11 AM 131 / 91 91 95 % 16 10:06 AM 134 / 80 82 100 % 22 10:15 AM 141 / 90 60 97 % 16 5 = Fully awake and oriented or at pre-proc level 10:30 AM 135 / 82 60 97 % 16 5 = Fully awake and oriented or at pre-proc level 10:45 AM 135 / 90 62 98 % 16 5 = Fully awake and oriented or at pre-proc level 11:13 AM 148 / 95 64 99 % 16 5 = Fully awake and oriented or at pre-proc level 11:43 AM 132 / 95 65 97 % 16 5 = Fully awake and oriented or at pre-proc level 12:37 PM 143 / 88 65 98 % 16 5 = Fully awake and oriented or at pre-proc level 01:12 PM 144 / 84 64 99 % 16 5 = Fully awake and oriented or at pre-proc level 01:39 PM 143 / 88 75 96 % 16 5 = Fully awake and oriented or at pre-proc level Procedural Medications Time Medication Dose Units Method Given By 08:53 AM Oxygen 2 L/min nasal cannula Tessa Mariscal RN 08:55 AM Versed 1 mg Intravenous Tessa Mariscal RN 08:58 AM Lidocaine 2% 10 ml Subcutaneous Rochelle Alvarez MD 08:59 AM Versed 0.5 mg Intravenous Tessa Mariscal RN 08:59 AM Benadryl 25 mg Intravenous Tessa Mariscal RN 09:00 AM Lidocaine 2% 10 ml Subcutaneous Rochelle Alvarez MD 09:05 AM Heparin 2000 units Intravenous Tessa Mariscal RN 09:05 AM Aggrastat 12.5mg/250ml 42 ml Intravenous Tessa Mariscal RN 09:05 AM Aggrastat 12.5mg/250ml 15 ml Intravenous Tessa Mariscal RN 09:09 AM Heparin 1000 units Intravenous Tessa Mariscal RN 09:17 AM Versed 1 mg Intravenous Tessa Mariscal RN 09:21 AM Fentanyl 50 mcg Intravenous Haylee Escalante RN 09:31 AM Heparin 1000 units Intravenous Mavis, Tessa RN 10:00 AM Brilinta 180 mg Orally Tessa Mariscal RN ASA Classification: CLASS II- Mild systemic disease (i.e. well-controlled diabetes, hypertension, asthma, cigarette smoking) Aide Score Preprocedure Postprocedure Activity 2- Moves 4 extremities sustained head lift Activity 2- Moves 4 extremities sustained head lift Circulation 2- SBP +/= 20 points of pre-anesthetic level Circulation 2- SBP +/= 20 points of pre-anesthetic level Consciousness 2- Awake and alert oriented x 3 Consciousness 2- Awake and alert oriented x 3 O2 Saturation 2- Able to maintain O2 satruation of 92% on room air O2 Saturation 2- Able to maintain O2 satruation of 92% on room air Respiratory 2- Able to deep breathe and cough well Respiratory 2- Able to deep breathe and cough well Total Score 10 Total Score 10 Contrast Agent: Isovue Diagnostic Contrast: 116 ml Total Contrast: 116 ml Fluoro Dose: 06374 mGy Procedure Log Time Note Enter By 08:49 AM Pt arrived to pathology lab technician 2 at 08:49 [email or web address] 08:50 AM CathStat 08:50 AM Vitals capture started with the following parameters, Patient=Adult, Interval=5 min, Initial Qalmizwc=013 mmHg, Deflation Rate=5 mmHg, Cuff placed on Right Arm 08:51 AM Em Hope RT (R) Position: Monitor Time in: 08:51 [email or web address] 08:51 AM Jackie Arevalo RT (R) Position: Scrub Time in: 08:51 [email or web address] 08:51 AM Tessa Mariscal RN Position: Distribution Accounting Clerk Time in: 08:51 [email or web address] 08:51 AM Patient charges- Angio tray pack, Navilyst 3mm J, Pulse Oximetry and ACIST tubing and transducer [email or web address] 08:51 AM Case Delayed No [email or web address] 08:51 AM Hair removed from procedure site in holding area using clippers. Bilateral groin prepped with Chloraprep by Jarrod Toney RT (R), then patient was draped. Skin intact. [email or web address] 08:52 AM Recorded ECG: HR=92 Condition=Condition 1 08:52 AM Recorded ECG: HR=80 Condition=Condition 1 08:52 AM HR=76 bpm, WNNX=701/95 mmhg, SpO2=99.0 %, Resp=10 B/min 08:53 AM Physician arrived 08:53 [email or web address] 08:53 AM Toy and yosvany completed [email or web address] 08:53 AM ASA Class CLASS II- Mild systemic disease (i.e. well-controlled diabetes, hypertension, asthma, cigarette smoking) [email or web address] 08:53 AM Procedure start 08:53 [email or web address] 08:53 AM Time: 08:53 Oxygen on at 2 L/min per nasal cannula by Tessa Mariscal RN [email or web address] 08:53 AM Time: 08:53 Patient comfortable and pain free: Yes [email or web address] 08:53 AM Time: 08:53LOC: 5 = Fully awake and oriented or at pre-proc level [email or web address] 08:55 AM Pressure channel 1 zeroed. 08:56 AM Time: 08:55 Versed 1 mg Intravenous Given by Tessa Mariscal RN [email or web address] 08:56 AM Pressure channel 1 zeroed. 08:56 AM HR=78 bpm, VZRQ=272/97 mmhg, SpO2=99.0 %, Resp=16 B/min 08:57 AM Time out performed according to hospital policy [email or web address] 08:58 AM Time: 08:58 10 ml Lidocaine 2% to right groin Subcutaneous Given by Rochelle Alvarez MD [email or web address] 08:58 AM Micro-Introducer Kit utilized for sheath placement [email or web address] 08:58 AM Pressure channel 1 zeroed. 08:59 AM Time: 08:59 Versed 0.5 mg Intravenous Given by Tessa Mariscal RN [email or web address] 08:59 AM Time: 08:59 Benadryl 25 mg Intravenous Given by Tessa Mariscal RN [email or web address] 09:00 AM Time: 09:00 10 ml Lidocaine 2% to right groin Subcutaneous Given by Rochelle Alvarez MD [email or web address] 09:00 AM Unsuccessful access attempt # 1 into the right Femoral artery. Manual pressure applied to achieve hemostasis.. [email or web address] 09:01 AM Unsuccessful access attempt # 2 into the right Femoral artery. Manual pressure applied to achieve hemostasis.. [email or web address] 09:01 AM HR=84 bpm, CHSP=285/93 mmhg, SpO2=96.0 %, Resp=17 B/min, Comment=NSR 09:02 AM Unsuccessful access attempt # 3 into the right Femoral artery. Manual pressure applied to achieve hemostasis.. [email or web address] 09:03 AM Access obtained by percutaneous puncture. 6Fr 10cm Terumo [place] sheath placed in right Femoral artery. [id number] [email or web address] 09:05 AM 5Fr FL 4 catheter inserted over the wire DN mk3 09:05 AM Time: 09:05 Heparin 2000 units Intravenous Given by Tessa Mariscal RN [email or web address] 09:05 AM Time: 09:05 Aggrastat 12.5mg/250ml 42 ml Intravenous Given by Tessa Mariscal RN Taylor pump [email or web address] 09:05 AM Recorded Pressure: Ao, HR=68, Condition=Condition 1 (Aorta) Ao 117/72/91 09:06 AM Time: 09:05 Aggrastat 12.5mg/250ml 15 ml Intravenous Given by Tessa Mariscal RN Taylor pump [email or web address] 09:06 AM LCA angiography performed in multiple views. [email or web address] 09:06 AM Catheter removed [email or web address] 09:06 AM HR=82 bpm, HASK=363/85 mmhg, SpO2=96.0 %, Resp=21 B/min 09:06 AM 6Fr JR 4 [place] Bright-Tip guide catheter was used to cannulate the PCI vessel successfully. reused? No [email or web address] 09:07 AM RCA angiography performed in multiple views. [email or web address] 09:08 AM .014 [employer] [place] 190cm guide wire across target lesion- successful. reused? No [email or web address] 09:09 AM Lesion found in Distal RCA. Pre Stenosis: 99 Pre KEKE Flow: 3: Complete and Brisk Flow/Perfusion [email or web address] 09:09 AM Inflation device was opened. [email or web address] 09:09 AM 2.0 mm x 12 mm Emerge Monorail balloon across target lesion- successful. reused? No [email or web address] 09:09 AM Recorded Pressure: Ao, HR=83, Condition=Condition 1 (Aorta) Ao 136/86/108 09:09 AM Time: 09:09 Heparin 1000 units Intravenous Given by Tessa Mariscal RN [email or web address] 09:10 AM Balloon inflated @ 6 rosalina for 10 seconds [email or web address] 09:11 AM Balloon inflated @ 6 rosalina for 6 seconds [email or web address] 09:11 AM Balloon catheter removed intact. [email or web address] 09:11 AM HR=91 bpm, IJOY=439/91 mmhg, SpO2=95.0 %, Resp=16 B/min 09:12 AM 3.0mm x 20mm Synergy drug-eluting stent across target lesion- successful Lot #[id number] [email or web address] 09:15 AM .014 [employer] [place] 190cm guide wire across target lesion- successful. reused? No [email or web address] 09:16 AM HR=89 bpm, ZYOV=921/91 mmhg, SpO2=98.0 %, Resp=14 B/min 09:16 AM Recorded ECG: HR=87 Condition=Condition 1 09:18 AM Time: 09:17 Versed 1 mg Intravenous Given by Tessa Mariscal RN [email or web address] 09:20 AM .014 Deaf And Hard Of Hearing Teacher 50 190cm guide wire across target lesion- successful. reused? No [email or web address] 09:20 AM Guide wire removed intact. [email or web address] 09:21 AM HR=89 bpm, YMPM=497/115 mmhg, LfF2=703.0 %, Resp=14 B/min 09:21 AM Time: 09:21 Fentanyl 50 mcg Intravenous Given by Haylee Escalante RN [email or web address] 09:23 AM Stent delivery system removed intact. [email or web address] 09:24 AM Balloon re-inserted 2.0x12 [email or web address] 09:24 AM Balloon inflated @ 6 rosalina for 11 seconds [email or web address] 09:25 AM Balloon inflated @ 6 rosalina for 6 seconds [email or web address] 09:25 AM Guide wire removed intact. [email or web address] 09:26 AM 3.0mm x 24mm Synergy drug-eluting stent across target lesion- successful Lot #[id number] [email or web address] 09:26 AM HR=84 bpm, IVOG=384/87 mmhg, SpO2=94.0 %, Resp=9 B/min 09:27 AM Recorded Pressure: Ao, HR=84, Condition=Condition 1 (Aorta) Ao 183/117/150 09:27 AM 6Fr Guidezilla advanced [email or web address] 09:30 AM Stent delivery system removed intact. [email or web address] 09:31 AM 2.0 mm x 20 mm Emerge Monorail balloon across target lesion- successful. reused? No [email or web address] 09:31 AM Time: 09:31 Heparin 1000 units Intravenous Given by Tessa Mariscal RN [email or web address] 09:31 AM HR=72 bpm, CMOX=835/99 mmhg, SpO2=98.0 %, Resp=19 B/min 09:32 AM Balloon inflated @ 6 rosalina for 12 seconds [email or web address] 09:33 AM 3.0x24 synergy stent re-inserted. [email or web address] 09:35 AM Stent delivery system removed intact. [email or web address] 09:35 AM Recorded Pressure: Ao, HR=77, Condition=Condition 1 (Aorta) Ao 143/84/109 09:36 AM HR=72 bpm, SDDA=432/106 mmhg, UxA5=239.0 %, Resp=21 B/min 09:38 AM 3.0mm x 23mm Xience Little EWA drug-eluting stent across target lesion- successful Lot #[id number] [email or web address] 09:39 AM Stent delivery system removed intact. [email or web address] 09:39 AM 2.5 mm x 12 mm Emerge Monorail balloon across target lesion- successful. reused? No [email or web address] 09:40 AM Balloon inflated @ 6 rosalina for 7 seconds [email or web address] 09:40 AM Balloon inflated @ 4 rosalina for 6 seconds [email or web address] 09:41 AM Balloon catheter removed intact. [email or web address] 09:41 AM HR=69 bpm, EYVN=302/94 mmhg, RuB3=002.0 %, Resp=22 B/min 09:41 AM 3.0mm x 20mm Synergy drug-eluting stent across target lesion- successful Lot #[id number] [email or web address] 09:44 AM Stent delivery system removed intact. [email or web address] 09:44 AM Recorded Pressure: Ao, HR=83, Condition=Condition 1 (Aorta) Ao 113/70/89 09:45 AM 3.0 mm x 12 mm Emerge Monorail balloon across target lesion- successful. reused? No [email or web address] 09:46 AM Balloon inflated @ 6 rosalina for 10 seconds [email or web address] 09:46 AM HR=75 bpm, CLNY=670/93 mmhg, PpB7=314.0 %, Resp=22 B/min 09:46 AM Balloon inflated @ 6 rosalina for 6 seconds [email or web address] 09:47 AM Balloon inflated @ 9 rosalina for 8 seconds [email or web address] 09:47 AM Balloon inflated @ 9 rosalina for 7 seconds [email or web address] 09:47 AM Balloon inflated @ 10 rosalina for 8 seconds [email or web address] 09:48 AM Balloon catheter removed intact. [email or web address] 09:48 AM 3.xhtk45mv synergy re-inserted. [email or web address] 09:50 AM Stent deployed @ 9 rosalina for 10 seconds [email or web address] 09:51 AM Stent balloon reinflated @ 15 rosalina for 9 seconds [email or web address] 09:51 AM Stent delivery system removed intact. [email or web address] 09:51 AM HR=83 bpm, NPMW=693/92 mmhg, DkP6=858.0 %, Resp=20 B/min 09:53 AM Guide wire removed intact. [email or web address] 09:54 AM Guide catheter removed intact. [email or web address] 09:56 AM HR=67 bpm, SWGI=017/99 mmhg, LdK3=645.0 %, Resp=18 B/min 09:57 AM Bolus angiogram of right Femoral complete: 4 ml/sec for a total of 7 mls [email or web address] 09:58 AM Procedure completed at 09:58 11/19/2017 [email or web address] 09:58 AM Coronary Dominance: right [email or web address] 09:58 AM Did you address KEKE flow and Dominance? Yes [email or web address] 09:59 AM Sign out completed: Radiation Dose 2338.86 mGy, 43479 cGy/cm2 Fluoro Time: 22.3 Isovue 370 - 200ml contrast 116 ml given by Rochelle Alvarez MD. Complications: NoneCardiac Rehab Consult needed: YesConfirmed administered medications: Yes [email or web address] 09:59 AM Isovue 370 - 200ml,1 Bottle(s) used. [email or web address] 09:59 AM Arterial sheath pulled, Angio-seal closure device used and was Successful S/N. [email or web address] 09:59 AM Estimated Blood Loss: minimal [email or web address] 10:00 AM Time: 10:00 Brilinta 180 mg Orally Given by Tessa Mariscal RN [email or web address] 10:01 AM HR=79 bpm, YZMG=109/89 mmhg, UuP8=853.0 %, Resp=19 B/min 10:06 AM HR=82 bpm, TXYZ=190/80 mmhg, HqW0=907.0 %, Resp=22 B/min 10:08 AM Family placed in consult room. [email or web address] 10:08 AM Post Blood Pressure 134/92 [email or web address] 10:09 AM 10:08 Post Pulses Bilateral DP & PT 2+ [email or web address] 10:09 AM Education needs Procedure, Plan of Care, and Disease Process [email or web address] 10:09 AM Learning barriers :None [email or web address] 10:09 AM Education Methods Verbal [email or web address] 10:09 AM Education evaluation Able to repeat information [email or web address] 10:09 AM Site status No bleeding/hematoma - Rt Groin as reported by Sites, Jackie RT (R) at 10:09 [email or web address] 10:09 AM Opsite applied [email or web address] 10:09 AM Report given to Barby MARQUEZ Pt taken to Holding room Room #4. 10:09 [email or web address] 10:09 AM Complications: None [email or web address] 10:10 AM Delay to floor Bed availability [email or web address] 10:14 AM Patient out of room: 10:14 [email or web address] 01:15 PM aggrestat d/cd [email or web address] 01:30 PM Patient ambulated with assistance. Insertion site without bleeding or hematoma. Pulses unchanged. scoates 01:59 PM report called to ALMA Stevens in ICU scoates 02:01 PM pt transferred to ICU room 6, by [email or web address] RN scoates Complications Complication None None Hemodynamics Pressures Site Systolic/A Wave Diastolic/V Wave Mean AO 117 72 91 AO 136 86 108 AO 183 117 150 AO 143 84 109 AO 113 70 89 Post Procedure Information Blood Pressure: 134/92 mmHg Post procedural instructions were given Closure Device Time Device Success/Fail 11/19/2017 10:00:00 AM Angio-Seal VIP Successful Site Checks Time Location Status Staff Sheath In? Note 10:09 AM Rt Groin No bleeding/hematoma Sites, Jackie RT (R) 10:15 AM Rt Groin No bleeding/ No Hematoma [place], Garrison RN 10:30 AM Rt Groin No bleeding/ No Hematoma [place], Garrison RN 10:45 AM Rt Groin No bleeding/ No Hematoma [place], Garrison RN 11:12 AM Rt Groin No bleeding/ No Hematoma [place], Garrison RN 11:42 AM Rt Groin No bleeding/ No Hematoma [place], Garrison RN 12:34 PM Rt Groin No bleeding/ No Hematoma [place], Garrison RN 01:09 PM Rt Groin No bleeding/ No Hematoma [place], Garrison RN 01:37 PM Rt Groin No bleeding/ No Hematoma [place], Garrison RN Pulses Time Site Pre-Procedure Post-Procedure Note Bilateral DP & PT 2+ Bilateral radial 2+ 10:08:00 AM Bilateral DP & PT 2+ 11/19/2017 11:13:00 AM Bilateral DP & PT 2+ 11/19/2017 11:43:00 AM Rt DP 2+ 11/19/2017 1:12:00 PM Bilateral DP & PT 2+ 11/19/2017 1:39:00 PM Bilateral DP & PT 2+ Updated by Haylee Bran RN on 11/19/2017 2:02:50 PM electronically signed on 11/19/2017 2:04:44 PM with status of Final
[2017-11-19 16:44] LABS: INR 2.6; Prothrombin Time 28.8 Seconds (9.4-12.1)
[2017-11-19] MEDS ORDERED: *HR* Warfarin 7.5 MG TABLET PO ONE (18:00)
[2017-11-19] MEDS ORDERED: Warfarin perPT PO PRN (18:00)
[2017-11-19] MEDS: Fluticasone Propionate Nasal 50 MCG/SPRAY BOTTLE NS SCH ×2 (20:00→21:12)
[2017-11-19] MEDS: *HR* Ticagrelor 90 MG TABLET PO SCH (21:12)
[2017-11-20 04:18] LABS: Basophils % 0.4 %; Eosinophils # 0.1 K/mcL (0.0-0.6); Eosinophils % 1.1 %; Hematocrit 45.8 % (37.5-50.1); Hemoglobin 15.6 g/dL (12.9-16.9); Immature Granulocytes % 0.2 % (0-4); Lymphocytes # 2.1 K/mcL (0.6-4.6); Lymphocytes % 22.9 %; Mean Corpuscular HGB Conc 34.1 g/dL (31.6-35.5); Mean Corpuscular Hemoglobin 29.8 pg (28.0-33.3); Mean Corpuscular Volume 87.4 fL (83.0-100.0); Mean Platelet Volume 11.2 fL (9.4-12.4); Monocytes % 11.1 %; Neutrophils # 5.9 K/mcL (1.6-8.9); Platelet Count 156 K/mcL (140-400); Red Blood Count 5.24 M/mcL (4.19-5.50); Red Cell Distribution Width 12.7 % (11.5-14.5); Segmented Neutrophils % 64.3 %
[2017-11-20 04:29] LABS: Prothrombin Time 22.4 Seconds (9.4-12.1)
[2017-11-20 04:39] LABS: BUN/Creatinine Ratio 23 (6-26); Blood Urea Nitrogen 18 mg/dL (8-23); Calcium 9.7 mg/dL (8.6-10.3); Carbon Dioxide 28 mEq/L (23-29); Chloride 106 mEq/L (98-107); Chol/HDL Ratio 3.9 (0-4.9); Cholesterol 156 mg/dL (< 200); Glucose 97 mg/dL (70-105); HDL Cholesterol 40 mg/dL (40-59); LDL Cholesterol,Calculated 81 mg/dL (0-99); Osmolality,Calculated 290 (280-300); Potassium 3.7 mEq/L (3.5-5.1); Sodium 139 mEq/L (136-145); Triglycerides 175 mg/dL (< 150); eGFR For Non-African Americans > 60 (> 60)
--- NOTE | 2017-11-20 08:53 | Internal Med Progress Note ---
<Noemi Landa N - Last Filed: 11/20/17 14:35> Hospitalist Progress Note - Encounter Date of Encounter: 11/20/17 Time of Encounter: 08:53 - Subjective Interval History: Mr. Capellan presented to the ED yesterday and was found to have an acute STEMI. He underwent LHC yesterday with successful stent placement. On exam today, he denies chest pain, diaphoresis, shortness of breath, or other cardiac symptoms. He states that he is feeling much better and denies any complaints or concerns. - Exam Vitals: Temp Pulse Resp BP Pulse Ox 98.0 F 67 14 146/83 96 11/20/17 07:26 11/20/17 07:00 11/20/17 06:00 11/20/17 06:00 11/20/17 06:00 Exam: * General: Pleasant male resting in bed comfortably in no acute distress. He is alert and oriented, and answers questions appropriately. * HEENT: Atraumatic and normocephalic. * Cardiovascular: Regular rate and rhythm. S1 and S2 present. No murmurs, rubs, or gallops. * Respiratory: Clear breath sounds bilaterally. Chest rises and falls symmetrically. * Gastrointestinal: Active bowel sounds x 4 quadrants. Abdomen is soft and nontender. * Extremities: No clubbing, cyanosis, or edema. - Assessment and Plan (1) Hx of coronary artery disease Current Visit: Yes Status: Acute Assessment and Plan: Patient is currently on aspirin 81mg. Restarted pravastatin 40mg HS. Per cardiology documentation, patient is not currently on a beta rosa due to bradycardia in the past. Appreciate cardiology assistance in management of this problem. (2) H/O mechanical aortic valve replacement Current Visit: No Status: Acute Assessment and Plan: Brillenta 90mg BID. (3) STEMI (ST elevation myocardial infarction) Current Visit: Yes Status: Acute Assessment and Plan: Patient presented to the ED yesterday with chest pain similar to that he experienced during a prior [place]. Troponin was elevated and EKG revealed ST changes. He was taken to the offset label rewinder yesterday and was found to have severe one -vessel disease, with successful placement of cardiac stent. On exam today, patient denies any chest pain or respiratory problems. He reports that he feels much better and has been eating and drinking well. Patient has been transferred from the ICU to stepdown unit, and home statin has been restarted. Anticipate patient will be ready for discharge tomorrow. - Time Spent with Patient Total time spent is greater than 50% in coordination of care (as documented) at patient's floor/unit and/or counseling patient: Internal Medicine: Result - Labs CBC & Chem 7: 11/20/17 04:02 11/20/17 04:02 Labs: Short CBC 11/20/17 Range/Units 04:02 WBC 9.2 (4.3-11.1) K/mcL Hgb 15.6 (12.9-16.9) g/dL Hct 45.8 (37.5-50.1) % Plt Count 156 (140-400) K/mcL Neutrophils # 5.9 (1.6-8.9) K/mcL BMP 11/20/17 04:02 Sodium 139 Potassium 3.7 Chloride 106 Carbon Dioxide 28 BUN 18 Creatinine 0.78 Glucose 97 Calcium 9.7 - ABG Interpretation ABG results: PT/INR, D-dimer PT 22.4 Seconds (9.4-12.1) H 11/20/17 04:02 Consult Discharge Plan - Plan Referrals: Fritz Bass CNP [Primary Care Provider] - 12/01/17 10:45 am Rochelle Alvarez [Partnered Physician] - (Office will call patient at home with follow appointment) <Owen Melchor - Last Filed: 11/20/17 17:01> Hospitalist Progress Note - Encounter Date of Encounter: 11/20/17 - Exam Vitals: Temp Pulse Resp BP Pulse Ox 98 F 71 16 146/85 96 11/20/17 14:18 11/20/17 14:18 11/20/17 14:18 11/20/17 14:18 11/20/17 14:18 - Assessment and Plan (1) H/O mechanical aortic valve replacement Current Visit: No Status: Acute (2) Hx of coronary artery disease Current Visit: Yes Status: Acute (3) STEMI (ST elevation myocardial infarction) Current Visit: Yes Status: Acute (4) CAD (coronary artery disease) Current Visit: Yes Status: Chronic - Time Spent with Patient Total time spent is greater than 50% in coordination of care (as documented) at patient's floor/unit and/or counseling patient: Internal Medicine: Result - Labs CBC & Chem 7: 11/20/17 04:02 11/20/17 04:02 Labs: Short CBC 11/20/17 Range/Units 04:02 WBC 9.2 (4.3-11.1) K/mcL Hgb 15.6 (12.9-16.9) g/dL Hct 45.8 (37.5-50.1) % Plt Count 156 (140-400) K/mcL Neutrophils # 5.9 (1.6-8.9) K/mcL BMP 11/20/17 04:02 Sodium 139 Potassium 3.7 Chloride 106 Carbon Dioxide 28 BUN 18 Creatinine 0.78 Glucose 97 Calcium 9.7 - ABG Interpretation ABG results: PT/INR, D-dimer PT 22.4 Seconds (9.4-12.1) H 11/20/17 04:02 - Attending Attestation I examined this patient and my medical decision-making was reviewed with the Resident Physician on 11/20/17. I agree with the documented findings, disposition and treatment plan as described except to the extent set forth below. Mr Capellan is currently admitted for acute STEMI. He is s/p C with RCA stent. He remains moderate to high risk due to potential for worsening clinical and cardiac status. Mr Capellan is having some constipation and would like a stool softener. Denies CP or SOB. Tolerated procedure yesterday. No fever or chills. Leg feels OK. Exam alert Comfortable in bed. Mucus membranes moist Heart reg No wheeze Abd soft No edema I/P 1. STEMI s/p stent 2. CAD 3. Constipation - add stool softener Further diagnoses and plan as above. Anticipate d/c tomorrow. <Noemi Landa N - Last Filed: 11/20/17 14:35> (3) STEMI (ST elevation myocardial infarction) Qualifiers: Involved coronary artery: unspecified coronary artery Qualified Code(s): I21.3 - ST elevation (STEMI) myocardial infarction of unspecified site <Owen Melchor - Last Filed: 11/20/17 17:01> (3) STEMI (ST elevation myocardial infarction) Qualifiers: Involved coronary artery: right coronary artery Qualified Code(s): I21.11 - ST elevation (STEMI) myocardial infarction involving right coronary artery (4) CAD (coronary artery disease) Qualifiers: Coronary Disease-Associated Artery/Lesion type: craig artery [place] vs. transplanted heart: craig heart Associated angina: without angina Qualified Code(s): I25.10 - Atherosclerotic heart disease of craig coronary artery without angina pectoris
[2017-11-20] MEDS ORDERED: Aspirin 81 MG TAB.CHEW PO SCH (09:00)
[2017-11-20] MEDS: *HR* Ticagrelor 90 MG TABLET PO SCH (09:28)
[2017-11-20] MEDS: Fluticasone Propionate Nasal 50 MCG/SPRAY BOTTLE NS SCH ×2 (09:32→20:43)
--- NOTE | 2017-11-20 11:56 | Cardiology Progress Note ---
Date of Encounter: 11/20/17 Time of Encounter: 11:38 Assessment and Plan (1) ST elevation myocardial infarction (STEMI) of inferior wall Current Visit: Yes Status: Acute The assessment and plan as outlined above was discussed with the patient and/or family members who expressed understanding and agreement. All questions were answered. EKG with ST elevation in the inferior leads and recipricol changes. Noted to be more prominent than last EKG completed in office 08/2017. Troponin 2.33. He was taken emergently to the cat lab and found to have 99% stenosis in the mRCA. He received PTCA and EWA with no complication. There was 60% ISR restenosis noted in the mLAD. Per Dr. Alvarez notes and his discussion with family staged PCI out-pt if needed. There was no complication from the procedure. Denies recurrent chest pain. No complications from right femoral access site. Importance of DAPT with asa and brilinta uninterrupted for minimum of one year discussed and he voiced understanding. Continue statin. I discussed changing pravastatin to atorvaststin and he reports myalgias on atorvastatin previously. He is not on bb due to bradycardia in the past. Activity restrictions reviewed. Cardiac rehab ordered. Okay to step down to cardiac floor. (2) H/O mechanical aortic valve replacement Current Visit: No Status: Acute H/o mechanical aortic valve replacement over 30 yrs ago. On coumadin. INR goal 2.0-3.0. (3) Hx of coronary artery disease Current Visit: Yes Status: Acute The assessment and plan as outlined above was discussed with the patient and/or family members who expressed understanding and agreement. All questions were answered. H/o NM and PCI to LAD in 2017. S/p PCI to the dRCA. 60% ISR in LAD seen. On asa , statin, brilinta. No bb due to bradycardia. Discussion w patient/family: The assessment and plan as outlined above was discussed with the patient and/or family members who expressed understanding and agreement. All questions were answered. Thank you for involving us in the care of your patient. Please call with any questions. Subjective Principal diagnosis: Inferior STEMI Interval history: Mr. Capellan denies chest pain overnight. No problem noted with right radial access site. Objective Vital Signs, Last 4 Hours Pulse Resp BP Pulse Ox 11/20/17 10:00 62 16 132/87 94 11/20/17 09:00 66 14 121/75 94 11/20/17 08:00 60 16 118/81 95 11/20/17 07:45 67 General: Conversant, No Apparent Distress HEENT: Atraumatic, Normocephaly, Mucus Membranes Moist Neck: No JVD, Normal carotid pulses Cardiac: Reg Rate and Rhythm, Normal S1 and S2, No Murmur Lungs: Normal Breath Sounds, No Wheeze, Rales, Rhonchi Neuro: Alert and responsive, No focal deficits noted Abdomen: Soft, Non-Tender Skin: No rashes noted on visualized skin Musculoskeletal: No Chest Wall Tenderness, Other (Right groin access without hematoma) Extremities: No Clubbing, No Cyanosis, No Edema, Normal Pulses Results 11/20/17 04:02 11/20/17 04:02 Lab Results 11/19/17 11/20/17 11/20/17 16:28 04:02 04:02 WBC 9.2 Hgb 15.6 Hct 45.8 Plt Count 156 INR 2.6 2.0 Sodium Potassium Chloride Carbon Dioxide BUN Creatinine Glucose Calcium 11/20/17 04:02 WBC Hgb Hct Plt Count INR Sodium 139 Potassium 3.7 Chloride 106 Carbon Dioxide 28 BUN 18 Creatinine 0.78 Glucose 97 Calcium 9.7 - Imaging and Cardiology Cardiac cath: report reviewed - EKG Interpretation EKG results cardiology: personally reviewed Consult Discharge Plan - Plan Referrals: Fritz Bass CNP [Primary Care Provider] -
[2017-11-20] MEDS ORDERED: Furosemide 40 MG TABLET PO PRN (13:31)
[2017-11-20] MEDS ORDERED: Loratadine 10 MG TABLET PO PRN (13:31)
[2017-11-20] MEDS ORDERED: Naloxone 0.4 MG/ML INJ IVP PRN (13:31)
[2017-11-20] MEDS ORDERED: Acetaminophen 325 MG TABLET PO PRN (13:31)
[2017-11-20] MEDS ORDERED: POTASSIUM CHLORIDE 10 MEQ/100 ML IVPB PRN (13:31)
[2017-11-20] MEDS ORDERED: Nitroglycerin 0.4 MG TAB.SUBL SL PRN (13:31)
[2017-11-20] MEDS ORDERED: Warfarin perPT PO PRN ×2 (18:00)
[2017-11-20] MEDS ORDERED: *HR* Warfarin 7.5 MG TABLET PO ONE ×3 (18:00)
[2017-11-20] MEDS ORDERED: *HR* Ticagrelor 90 MG TABLET PO SCH (21:00)
[2017-11-21 05:05] LABS: Basophils % 0.3 %
[2017-11-21 05:10] LABS: INR 1.5; Prothrombin Time 16.8 Seconds (9.4-12.1)
[2017-11-21 05:17] LABS: Eosinophils # 0.2 K/mcL (0.0-0.6); Eosinophils % 1.7 %; Hematocrit 47.1 % (37.5-50.1); Hemoglobin 16.2 g/dL (12.9-16.9); Immature Granulocytes % 0.4 % (0-4); Immature Platelets 8.7 % (1.1-6.1); Lymphocytes # 2.3 K/mcL (0.6-4.6); Lymphocytes % 19.5 %; Mean Corpuscular HGB Conc 34.4 g/dL (31.6-35.5); Mean Corpuscular Hemoglobin 30.2 pg (28.0-33.3); Mean Corpuscular Volume 87.7 fL (83.0-100.0); Mean Platelet Volume 11.5 fL (9.4-12.4); Monocytes # 1.2 K/mcL (0.0-1.3); Monocytes % 9.9 %; Neutrophils # 8.2 K/mcL (1.6-8.9); Platelet Count 142 K/mcL (140-400); Red Blood Count 5.37 M/mcL (4.19-5.50); Red Cell Distribution Width 12.5 % (11.5-14.5); Segmented Neutrophils % 68.2 %
[2017-11-21 05:27] LABS: BUN/Creatinine Ratio 24 (6-26); Blood Urea Nitrogen 17 mg/dL (8-23); Calcium 9.4 mg/dL (8.6-10.3); Carbon Dioxide 25 mEq/L (23-29); Chloride 106 mEq/L (98-107); Glucose 106 mg/dL (70-105); Osmolality,Calculated 286 (280-300); Sodium 137 mEq/L (136-145); eGFR For Non-African Americans > 60 (> 60)
[2017-11-21 05:44] LABS: Platelet Clumps Few (Not Present); Platelet Estimate Normal (Normal)
[2017-11-21 07:53] VITALS: BP 113/82
[2017-11-21] MEDS ORDERED: *HR* Enoxaparin 100 MG/ML SYRINGE SQ SCH (09:00)
[2017-11-21] MEDS ORDERED: Aspirin 81 MG TAB.CHEW PO SCH (09:00)
--- NOTE | 2017-11-21 09:25 | Cardiology Progress Note ---
Date of Encounter: 11/21/17 Time of Encounter: 09:25 Assessment and Plan (1) ST elevation myocardial infarction (STEMI) of inferior wall Current Visit: Yes Status: Acute The assessment and plan as outlined above was discussed with the patient and/or family members who expressed understanding and agreement. All questions were answered. EKG with ST elevation in the inferior leads and recipricol changes noted with chest pain while in hospital. Noted to be more prominent than last EKG completed in office 08/2017. Troponin 2.33. He was taken emergently to the cat lab and found to have 99% stenosis in the mRCA. He received PTCA and EWA with no complication. There was 60% ISR restenosis noted in the mLAD. Per Dr. Alvarez notes and his discussion with family staged PCI out-pt. TTE reviewed with patient and . EF preserved. No WMA. There was no complication from the procedure. Denies recurrent chest pain. No complications from right femoral access site. States that he may have noticed some SOB overnight. Voices concerns about brilinta. States that he was up all night reading studies on the medication. He is concerned that [facility] not [facility]. I discussed with Dr. Oneal, we will load him with plavix this morning. Continue 75 mg daily. Importance of DAPT with asa and plavix uninterrupted for minimum of one year discussed and he voiced understanding. He will require triple therapy and he is aware of increased risk of bleeding. Continue statin. I discussed changing pravastatin to atorvaststin and he reports myalgias on atorvastatin previously. He is not on bb due to bradycardia and hypotension in the past. HR noted to be in upper 50's during this stay. Telemetry review completed, Avg HR 62 bpm with minimum HR 52 bpm. rare PVC seen. No pauses, no VT seen. Activity restrictions reviewed. Recommend baseline post LA EKG prior to d/c. Cardiac rehab ordered. Okay for discharge from cardiology standpoint. (2) H/O mechanical aortic valve replacement Current Visit: No Status: Acute H/o mechanical aortic valve replacement over 30 yrs ago. Currently with moderate aortic stenosis. TTE completed during stay discussed with patient. LVEF 50%. Normal LV chamber size, wall thickness and function. Mild left ventricular systolic dysfunction. Atypical septal motion consistent with post-operative status. Normal right ventricular structure and function. Moderate aortic stenosis. Peak and mean gradients are 36 and 21 mmHg, respectively. mean PG of 21mmHg with dimensionless index of 0.26. Normal mitral valve structure and function. No mitral regurgitation. No mitral stenosis. Normal tricuspid valve structure and function. No tricuspid regurgitation. No tricuspid stenosis. No evidence of pulmonary hypertension. Mechanical aortic valve replacement with abnormal function. mean PG of 21mmHg with dimensionless index of 0.26. Please correlate with prosthetic type and size. Patient has medtronic harden mechanical valve. I do not have size to correlate normal gradients for this valve. Records reviewed. Historically noted to have increased gradients Per patient he was seen by [facility] cardiothoracic surgeon and MRI was recommended for closer evaluation of his aortic valve and aorta at his last appt. He has not completed yet. He will discuss at out pt appt with Dr. Felipe. On coumadin. INR goal 2.0-3.0. INR 1.5. Recommend bridge therapy. States that he has lovenox 90 mg at home, enough for 5 days. Follows with [facility]. (3) Hx of coronary artery disease Current Visit: Yes Status: Acute The assessment and plan as outlined above was discussed with the patient and/or family members who expressed understanding and agreement. All questions were answered. H/o LA and PCI to LAD in 2017. S/p PCI to the dRCA. 60% ISR in LAD seen. On asa , statin, plavix. No recurrent chest pain. No bb due to bradycardia. Discussion w patient/family: The assessment and plan as outlined above was discussed with the patient and/or family members who expressed understanding and agreement. All questions were answered. Thank you for involving us in the care of your patient. Please call with any questions. Subjective Principal diagnosis: Inferior STEMI Interval history: Mr. Capellan denies chest pain overnight. No problem noted with right radial access site. Objective Vital Signs, Last 4 Hours Temp Pulse Resp BP Pulse Ox 11/21/17 07:47 98.1 F 69 16 113/82 97 Results 11/21/17 04:25 11/21/17 04:25 Lab Results 11/21/17 11/21/17 11/21/17 04:25 04:25 04:25 WBC 12.0 H Hgb 16.2 Hct 47.1 Plt Count 142 INR 1.5 Sodium 137 Potassium 4.0 Chloride 106 Carbon Dioxide 25 BUN 17 Creatinine 0.72 Glucose 106 H Calcium 9.4 Consult Discharge Plan - Plan Referrals: Fritz Bass CNP [Primary Care Provider] - 12/01/17 10:45 am Rochelle Alvarez [Partnered Physician] - (Office will call patient at home with follow appointment)
[2017-11-21] MEDS: Fluticasone Propionate Nasal 50 MCG/SPRAY BOTTLE NS SCH (09:41)
--- NOTE | 2017-11-21 09:43 | Discharge Summary ---
<Noemi Landa N - Last Filed: 11/21/17 10:08> - NOTES TO OUTPATIENT PROVIDER Notes to Outpatient Provider: Patient presented with acute STEMI and underwent successful LHC with stent placement. Hosptial stay was uncomplicated. Patient had a slightly elevated WBC count on day of d/c, but is afebrile and has no complaints or concerns concerning for acute infection. Orders not resulted at time of discharge: Pending orders 11/21/17 09:20 EKG [ECG 12 lead ECG] [ECG] Routine 11/22/17 04:00 PT/INR [Prothrombin Time INR] [COAG] AM 0400 11/23/17 04:00 PT/INR [Prothrombin Time INR] [COAG] AM 0400 11/24/17 04:00 PT/INR [Prothrombin Time INR] [COAG] AM 0400 Date of Encounter: 11/21/17 Time of Encounter: 10:08 - Discharge Diagnosis (1) H/O mechanical aortic valve replacement Priority: Secondary Status: Acute (2) Hx of coronary artery disease Priority: Secondary Status: Acute (3) STEMI (ST elevation myocardial infarction) Priority: Primary Status: Acute (4) CAD (coronary artery disease) Priority: Secondary Status: Chronic Hospital course: Mr. Capellan is a 62 year old male who presented to the ED with chest pain and was found to have STEMI. He underwent LHC with successful stent placement. Post- operatively, patient reported resolution of symptoms. He experienced adverse effects with a trial of Brillenta, and was discharged on anticoagulation with aspirin, coumadin, and plavix, with cardiology instructions for bridging with lovenox until therapeutic INR is achieved.. Discharge discussed with: patient, family, nurse - Time Spent with Patient Total time spent providing and/or coordinating discharge services: - Discharge Medications Home Medications: Celecoxib [Celebrex] 200 mg PO DAILY 07/18/16 [History] Fluticasone Propionate Nasal [Flonase] 2 spray NS BID 07/18/16 [History] Furosemide [Lasix] 40 mg PO DAILY PRN 07/18/16 [History] Loratadine [Allergy Relief] 10 mg PO DAILY PRN 07/18/16 [History] Potassium Chloride [Klor-Con 10] 10 meq PO DAILY PRN 07/18/16 [History] Warfarin [Coumadin] 5 mg PO SUTUTHSA 07/18/16 [History] Warfarin [Coumadin] 7.5 mg PO MOWEFR 07/18/16 [History] Aspirin Enteric Coated [Aspirin EC] 81 mg PO DAILY #30 tablet. 07/22/16 [Rx] Pantoprazole Sodium [Protonix] 40 mg PO DAILY 11/19/17 [History] Pravastatin Sodium [Pravachol] 40 mg PO HS 11/19/17 [History] Clopidogrel [Plavix] 75 mg PO DAILY tablet 11/21/17 [Rx] Allergies/Adverse Reactions: 3 Allergy/AdvReac Type Severity Reaction Status Date / Time acetaminophen [From Percocet] Allergy Itching Verified 11/19/17 08:40 morphine Allergy Itching Verified 11/19/17 08:40 Oxycodone [From Percocet] Allergy Itching Verified 11/19/17 08:40 Date of admission: 11/19/17 14:05 Primary care physician: Fritz Bass CNP Discharging clinician: Noemi Landa Anticipated date of discharge: 11/21/17 - Constitutional Vitals: Temp Pulse Resp BP Pulse Ox 98.1 F 69 16 113/82 97 11/21/17 07:47 11/21/17 07:47 11/21/17 07:47 11/21/17 07:47 11/21/17 07:47 General appearance: Present: A&O X 3 Exam: * General: Pleasant male sitting in the chair at bedside. He is alert and oriented, and answers questions appropriately. He is in no acute distress. * HEENT: Atraumatic and normocephalic. * Cardiovascular: Regular rate and rhythm. S1 and S2 present. 2/6 systolic murmur noted. Sound changes consistent with mechanical valve placement noted. * Respiratory: Clear breath sounds bilaterally. Chest rises and falls symmetrically. * Extremities: No clubbing, cyanosis, or edema. * Neurologic: Patient moves extremities spontaneously. No apparent focal deficits. - Patient Status Disposition: Home, Self-Care Condition: Good Functional capacity at discharge: independent ambulation Overall status at discharge: patient is progressing back to baseline - Discharge Instructions Instructions: Coronary Intravascular Stent Placement (DC) Follow Up With: Fritz Bass CNP [Primary Care Provider] - 12/01/17 10:45 am Rochelle Alvarez [Partnered Physician] - (Office will call patient at home with follow appointment) Additional Instructions: Resume home medications. Continue taking aspirin, coumadin, and plavix 75mg. Bridge with lovenox until therapeutic INR is achieved per cardiology instructions. Adhere to activity restrictions as directed by cardiology. Return to the emergency department if you have fever, chills, chest pain, shortness of breath, or any other concerns. Follow up with cardiology as directed. Follow up with your PCP in 3-5 days. - Diet and Activity Activity: other (Avoid strenuous activities for 1-2 weeks, then continue normal activities as tolerated.) Diet: other (Cardiac diet) <Owen Melchor - Last Filed: 11/21/17 19:27> Orders not resulted at time of discharge: Pending orders 11/21/17 09:20 EKG [ECG 12 lead ECG] [ECG] Routine Date of Encounter: 11/21/17 - Discharge Diagnosis (1) H/O mechanical aortic valve replacement Status: Acute (2) Hx of coronary artery disease Status: Acute (3) STEMI (ST elevation myocardial infarction) Status: Resolved Qualifiers: Involved coronary artery: right coronary artery Qualified Code(s): I21.11 - ST elevation (STEMI) myocardial infarction involving right coronary artery (4) CAD (coronary artery disease) Status: Chronic Qualifiers: Coronary Disease-Associated Artery/Lesion type: [place] artery [place] vs. transplanted heart: [place] heart Associated angina: without angina Qualified Code(s): I25.10 - Atherosclerotic heart disease of [place] coronary artery without angina pectoris (5) Osteoarthritis Status: Chronic Qualifiers: Osteoarthritis location: knee Osteoarthritis type: primary Laterality: left Qualified Code(s): M17.12 - Unilateral primary osteoarthritis, left knee Hospital course: Mr. Capellan is a 62 year old male - Time Spent with Patient Total time spent providing and/or coordinating discharge services: 37min Date of admission: 11/19/17 14:05 Primary care physician: Fritz Bass CNP - Constitutional Vitals: Temp Pulse Resp BP Pulse Ox 98.1 F 69 16 113/82 97 11/21/17 07:47 11/21/17 07:47 11/21/17 07:47 11/21/17 07:47 11/21/17 07:47 - Attending Attestation I examined this patient and my medical decision-making was reviewed with the Resident Physician on 11/21/17. I agree with the documented findings, disposition and treatment plan as described except to the extent set forth below. Mr Capellan has been admitted for acute STEMI. He is s/p LHC and RCA stent. He has done well and is now ready for discharge home. His INR is low and he has been started on Lovenox bridging. Exam alert Comfortable Mucus membranes dry Heart reg No wheeze abd soft No edema Plan D/C home today
[2017-11-21] MEDS ORDERED: *HR* Enoxaparin 30 MG/0.3 ML SYRINGE SQ ONE (10:18)
[2017-11-21] MEDS ORDERED: *HR* Warfarin 7.5 MG TABLET PO ONE (18:00)
--- NOTE | 2017-11-24 14:20 | Electrocardiograph Report ---
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
== END 2017-11-21 11:19 | disposition home or self-care (01) | DRG 247 ==
LOC: EMEROOARM 22:02 → 3BNU 22:02 → ICNU 11-19 14:02 → SUATTDRO 11-19 14:05 → 2NNU 11-20 14:15
PROVIDERS: ADMIT Nurse Practitioner Acute Care; ATTEND Internal Medicine

== ENCOUNTER 2020-12-21 20:00 | Observation (INO) ==
[2020-12-21 20:49] LABS: Basophils % 0.5 %; Eosinophils # 0.2 K/mcL (0.0-0.6); Eosinophils % 2.5 %; Hemoglobin 14.1 g/dL (12.9-16.9); Immature Granulocytes % 0.3 % (0-4); Lymphocytes # 1.6 K/mcL (0.6-4.6); Lymphocytes % 20.5 %; Mean Corpuscular HGB Conc 34.4 g/dL (31.6-35.5); Mean Corpuscular Hemoglobin 30.1 pg (28.0-33.3); Mean Corpuscular Volume 87.6 fL (83.0-100.0); Mean Platelet Volume 10.5 fL (9.4-12.4); Monocytes % 12.9 %; Platelet Count 188 K/mcL (140-400); Red Blood Count 4.68 M/mcL (4.19-5.50); Segmented Neutrophils % 63.3 %; White Blood Count 7.9 K/mcL (4.3-11.1)
[2020-12-21 20:59] LABS: Activated Partial Thrombo Time 49.8 Seconds (26.0-36.0)
[2020-12-21 21:04] LABS: Alanine Aminotransferase 28 Units/L (7-52); Albumin/Globulin Ratio 1.3 (1.1-2.2); Alkaline Phosphatase 150 Units/L (34-104); Aspartate Amino Transferase 31 Units/L (13-39); BUN/Creatinine Ratio 22 (6-26); Bilirubin,Total 0.5 mg/dL (0.3-1.0); Blood Urea Nitrogen 15 mg/dL (8-23); Calcium 9.1 mg/dL (8.6-10.3); Carbon Dioxide 25 mEq/L (23-29); Chloride 100 mEq/L (98-107); Glucose 132 mg/dL (70-105); Osmolality,Calculated 279 (280-300); Potassium 3.5 mEq/L (3.5-5.1); Sodium 133 mEq/L (136-145); eGFR For African Americans > 60 (> 60); eGFR For Non-African Americans > 60 (> 60)
[2020-12-21 21:05] LABS: INR 4.9; Prothrombin Time 54.4 Seconds (9.4-12.1); Troponin I < 0.03 ng/mL (< 0.04)
[2020-12-21] MEDS ORDERED: *HR* Phytonadione 5 MG TABLET PO ONE (21:18)
[2020-12-21] MEDS ORDERED: Ondansetron 4 MG/2 ML VIAL IVP PRN (22:45)
[2020-12-21] MEDS ORDERED: Naloxone 0.4 MG/ML INJ IVP PRN (22:45)
[2020-12-22 02:18] LABS: Hematocrit 39.4 % (37.5-50.1); Hemoglobin 13.5 g/dL (12.9-16.9); Mean Corpuscular HGB Conc 34.3 g/dL (31.6-35.5); Mean Corpuscular Hemoglobin 29.9 pg (28.0-33.3); Mean Corpuscular Volume 87.2 fL (83.0-100.0); Mean Platelet Volume 10.8 fL (9.4-12.4); Platelet Count 186 K/mcL (140-400); Red Blood Count 4.52 M/mcL (4.19-5.50); Red Cell Distribution Width 11.9 % (11.5-14.5); White Blood Count 8.2 K/mcL (4.3-11.1)
[2020-12-22 02:31] LABS: Prothrombin Time 51.6 Seconds (9.4-12.1)
[2020-12-22 02:32] LABS: INR 4.7
[2020-12-22 02:38] LABS: Alanine Aminotransferase 24 Units/L (7-52); Albumin 3.7 g/dL (3.5-5.7); Albumin/Globulin Ratio 1.3 (1.1-2.2); Alkaline Phosphatase 135 Units/L (34-104); Aspartate Amino Transferase 28 Units/L (13-39); BUN/Creatinine Ratio 21 (6-26); Bilirubin,Total 0.5 mg/dL (0.3-1.0); Blood Urea Nitrogen 12 mg/dL (8-23); Calcium 9.2 mg/dL (8.6-10.3); Carbon Dioxide 25 mEq/L (23-29); Chloride 101 mEq/L (98-107); Globulin 2.9 g/dL (2.4-3.5); Glucose 109 mg/dL (70-105); Magnesium 1.5 mg/dL (1.6-2.6); Osmolality,Calculated 278 (280-300); Phosphorous 3.7 mg/dL (2.7-4.5); Potassium 3.8 mEq/L (3.5-5.1); Sodium 134 mEq/L (136-145); Total Protein 6.6 g/dL (6.4-8.9); eGFR For African Americans > 60 (> 60); eGFR For Non-African Americans > 60 (> 60)
[2020-12-22] MEDS ORDERED: Pantoprazole 40 MG VIAL IVP SCH (03:00)
[2020-12-22 08:06] VITALS: BP 136/93; PULSE 91; TEMP 98.5; O2SAT 94
[2020-12-22 10:01] LABS: Hematocrit 42.5 % (37.5-50.1); Hemoglobin 14.6 g/dL (12.9-16.9)
== END 2020-12-22 11:54 | disposition home or self-care (01) ==
LOC: 3ANU 20:00 → EMEROOARM 20:00 → 3ANU 22:13
PROVIDERS: ADMIT Internal Medicine; ATTEND Internal Medicine